=== PATIENT | male | born 1945 | race Caucasian/White ===

== ENCOUNTER → 2016-05-13 | Outpatient (CLI) | payer MEDICARE ==
[~2016-05-13] MED LIST: ACET-654 PO; ALBU20IN INH; ARTHRITIS PAIN REL OR; CENTTAB PO; COLA50CA3 PO; DOCU10CA PO; FERR325T3 PO; METF500T PO; MULTCAP11 PO; OMEP40CA2 PO; ROXI1TAB2 PO; SIME180C PO; SIME80TA PO; TYLE325T5 PO; TYLE650T30 PO; VIT250TA PO; ZOFR20TA PO; iron OR; megestrol OR; vitamin C OR
[2016-05-15 00:07] LABS: PSA % FREE 23.2 % (.); PSA FREE 1.09 ng/mL; PSA TOTAL 4.7 ng/mL (0.0-4.0)
== END ==
LOC: M LAB 10:47
PROVIDERS: ATTEND Urology
DX: N41.1 Chronic prostatitis (principal)

== ENCOUNTER → 2016-06-16 | Outpatient (REF) | payer MEDICARE | LOC: M LAB REF 12:43 | PROVIDERS: ATTEND Internal Medicine Medical Oncology | DX: C26.0 Malignant neoplasm of intestinal tract, part unspecified (principal) ==

== ENCOUNTER → 2016-07-14 | Outpatient (CLI) | payer MEDICARE ==
[~2016-07-14] MED LIST changes: +LIDOCAINE 2% MDV 20 ML VIAL As Ordered ONE; +LIDOCAINE W/EPINEPHRINE 1% 20ML VIAL As Ordered ONE; +SODIUM BICARBONATE 8.4% INJ 50MEQ 50 ML VIAL As Ordered ONE
--- NOTE | 2016-07-14 15:34 | REPKIM ---
CLINICAL HISTORY: Patient has a left chest [id number]. The referring service has requested to remove the chest [id number] because it is no longer needed. PROCEDURE PERFORMED: Chest Knowof-U-Vmit Removal INTERVENTIONALIST: Lynette Lovell MD CHILD NUTRITION ASSISTANT: AYO John IV MEDICATIONS: Local Lidocaine EBL: less than 5 mL CONSENT: The risks, benefits and alternatives to the procedure were explained to the patient and informed written consent was obtained. PROCEDURE/FINDINGS: The patient was brought to the interventional radiology suite and was positioned supine on the table. Time out procedure was performed. Fluoroscopy of the chest showed the catheter is intact with its tip in a satisfactory course and position. The left upper chest was prepped and draped in the usual sterile fashion. Local anesthesia was administered to the overlying skin and surrounding deep tissue around the existing port. Then a skin incision was made. The port was bluntly dissected free from the surrounding soft tissues. Then the port and its associated catheter were removed in their entirety. The deep tissue was closed with interrupted 2-0 Vicryl suture. The skin incision closed with running subcutaneous 4-0 Vicryl suture and steristrips. The patient tolerated the procedure well with no immediate complications. This procedure was performed using fluoroscopy. Dr. Lovell was present. IMPRESSION: Successful chest caupjn-t-ldms removal as discussed above. cc: Beulah Roa MD [facility] [place] DIVISIONRaine
== END | disposition home or self-care (01) ==
LOC: M IRPRO 12:21
PROVIDERS: ATTEND Internal Medicine Medical Oncology
DX: Z45.2 Encounter for adjustment and management of vascular access device (principal); C18.9 Malignant neoplasm of colon, unspecified

== ENCOUNTER → 2016-08-27 | Outpatient (REF) | payer MEDICARE ==
[~2016-08-27] MED LIST changes: -LIDOCAINE 2% MDV 20 ML VIAL As Ordered ONE; -LIDOCAINE W/EPINEPHRINE 1% 20ML VIAL As Ordered ONE; -SODIUM BICARBONATE 8.4% INJ 50MEQ 50 ML VIAL As Ordered ONE
== END ==
LOC: M SFHCPLAZ 16:42
PROVIDERS: ATTEND Family Medicine
DX: E03.9 Hypothyroidism, unspecified (principal); R73.03 Prediabetes; E55.9 Vitamin D deficiency, unspecified; G62.0 Drug-induced polyneuropathy; Z53.8 Procedure and treatment not carried out for other reasons

== ENCOUNTER → 2016-08-29 | Outpatient (CLI) | payer MEDICARE ==
[2016-08-29 10:37] LABS: ANION GAP 4 MEQ/L (8-16); BLOOD UREA NITROGEN 18 MG/DL (7-18); CALCIUM LEVEL 9.3 MG/DL (8.8-10.2); CARBON DIOXIDE LEVEL 32 MEQ/L (21-32); CHLORIDE LEVEL 104 MEQ/L (98-107); CHOLESTEROL LEVEL 98 MG/DL (<200); CREATININE FOR GFR 1.12 MG/DL (0.70-1.30); FREE T4 1.32 NG/DL (0.76-1.46); GLOMERULAR FILTRATION RATE > 60.0 (>42); GLUCOSE, FASTING 99 MG/DL (83-110); POTASSIUM SERUM 4.7 MEQ/L (3.5-5.1); SODIUM LEVEL 140 MEQ/L (136-145); TRIGLYCERIDES LEVEL 40 MG/DL (<150)
[2016-08-29 12:51] LABS: VITAMIN B12 LEVEL 559 PG/ML (247-911)
== END ==
LOC: M LAB 09:14
PROVIDERS: ATTEND Family Medicine
DX: R73.03 Prediabetes (principal); G62.0 Drug-induced polyneuropathy; E55.9 Vitamin D deficiency, unspecified; E03.9 Hypothyroidism, unspecified; Z87.891 Personal history of nicotine dependence

== ENCOUNTER → 2016-09-03 | Outpatient (CLI) | payer MEDICARE ==
--- NOTE | 2016-09-03 12:36 | REP ---
ULTRASOUND ABDOMINAL AORTA: Real-time sonographic evaluation ultrasound evaluation of the abdominal aorta performed. There is no sonographic evidence of abdominal aortic aneurysm. Proximally, at the level of the diaphragm is a maximum AP diameter of the abdominal aorta is 2.8 cm, at the level of the renal arteries, 2.5 cm, mid aspect 2.2 cm and distally just above the bifurcation 2.3 cm. The common iliac arteries are normal in caliber, right measuring 1.1 cm AP and left 1.0 cm. Atherosclerotic plaquing is noted. IMPRESSION: No sonographic evidence of abdominal aortic aneurysm. Signed by Ferdy Sapp MD 09/03/2016 07:47 P
== END ==
LOC: M RAD 09:11
PROVIDERS: ATTEND Family Medicine
DX: Z87.891 Personal history of nicotine dependence (principal)

== ENCOUNTER → 2016-11-19 | Outpatient (CLI) | payer MEDICARE ==
[~2016-11-19] MED LIST changes: -ACET-654 PO; +ACET1TAB17 PO; +METF500T13 PO
[2016-11-20 14:15] LABS: PSA % FREE 25.3 % (.); PSA FREE 1.39 ng/mL; PSA TOTAL 5.5 ng/mL (0.0-4.0)
== END ==
LOC: M LAB 10:01
PROVIDERS: ATTEND Urology
DX: N41.1 Chronic prostatitis (principal)

== ENCOUNTER → 2016-12-17 | Outpatient (REF) | payer MEDICARE | LOC: M LAB REF 12:36 | PROVIDERS: ATTEND Internal Medicine Medical Oncology | DX: C18.9 Malignant neoplasm of colon, unspecified (principal) ==

== ENCOUNTER → 2017-06-04 | Outpatient (CLI) | payer MEDICARE ==
[2017-06-06 00:06] LABS: PSA % FREE 26.9 % (.); PSA FREE 1.21 ng/mL; PSA TOTAL 4.5 ng/mL (0.0-4.0)
== END ==
LOC: M LAB 10:28
DX: R97.0 Elevated carcinoembryonic antigen [CEA] (principal)
CPT/HCPCS: 84154

== ENCOUNTER → 2017-07-06 | Outpatient (REF) | payer MEDICARE ==
[2017-07-07 09:14] LABS: CARCINOEMBRYONIC ANTIGEN 0.9 NG/ML (<2.5)
== END ==
LOC: M LAB REF 12:50
DX: C18.9 Malignant neoplasm of colon, unspecified (principal)
CPT/HCPCS: 82378

== ENCOUNTER → 2017-08-24 | Outpatient (CLI) | payer MEDICARE ==
[2017-08-24 12:23] LABS: ANION GAP 8 MEQ/L (8-16); BLOOD UREA NITROGEN 13 MG/DL (7-18); CALCIUM LEVEL 8.8 MG/DL (8.8-10.2); CARBON DIOXIDE LEVEL 26 MEQ/L (21-32); CHLORIDE LEVEL 108 MEQ/L (98-107); CREATININE FOR GFR 1.01 MG/DL (0.70-1.30); FREE T4 1.41 NG/DL (0.76-1.46); GLOMERULAR FILTRATION RATE > 60.0 (>42); GLUCOSE, FASTING 109 MG/DL (70-100); POTASSIUM SERUM 4.4 MEQ/L (3.5-5.1); SODIUM LEVEL 142 MEQ/L (136-145)
[2017-08-24 14:13] LABS: ESTIMATED AVERAGE GLUCOSE 134 MG/DL (60-110); HEMOGLOBIN A1c 6.3 %
== END ==
LOC: M LAB 11:00
DX: E03.9 Hypothyroidism, unspecified (principal); R73.03 Prediabetes
CPT/HCPCS: 84443

== ENCOUNTER → 2018-02-24 | Outpatient (CLI) | payer MEDICARE ==
[~2018-02-24] MED LIST changes: -ACET1TAB17 PO; -ALBU20IN INH; -ARTHRITIS PAIN REL OR; -CENTTAB PO; -COLA50CA3 PO; -DOCU10CA PO; -FERR325T3 PO; +GASTROGRAFIN SOLUTION 30ML (Q9963) As Ordered; +ISOVUE-370 76% 100ML VIAL (Q9967) As Ordered; -METF500T PO; -METF500T13 PO; -MULTCAP11 PO; -OMEP40CA2 PO; -ROXI1TAB2 PO; -SIME180C PO; -SIME80TA PO; -TYLE325T5 PO; -TYLE650T30 PO; -VIT250TA PO; -ZOFR20TA PO; -iron OR; -megestrol OR; -vitamin C OR
== END ==
LOC: M RAD 08:53
DX: C18.9 Malignant neoplasm of colon, unspecified (principal); N40.0 Benign prostatic hyperplasia without lower urinary tract symptoms
CPT/HCPCS: Q9963

== ENCOUNTER → 2018-03-30 | Outpatient (CLI) | payer MEDICARE ==
[~2018-03-30] MED LIST changes: +ACET1TAB55 PO; +ALBU20IN INH; +ARTHRITIS PAIN REL OR; +ASPI1TAB PO; +CENTTAB PO; +COLA50CA3 PO; +DOCU10CA PO; +FERR325T3 PO; +GABA600T4 PO; -GASTROGRAFIN SOLUTION 30ML (Q9963) As Ordered; -ISOVUE-370 76% 100ML VIAL (Q9967) As Ordered; +LEVO75TA4 PO; +METF500T PO; +METF500T13 PO; +MULTCAP11 PO; +OMEP40CA2 PO; +OXYB15TA PO; +ROXI1TAB2 PO; +SIME180C PO; +SIME80TA PO; +TERA10CA3 PO; +TYLE325T5 PO; +TYLE650T30 PO; +VIT250TA PO; +ZOFR4TAB16 PO; +iron OR; +megestrol OR; +vitamin C OR
--- NOTE | 2018-04-02 11:29 | REP ---
PET/CT: History: Staging colon carcinoma. History of stage 3 colon carcinoma 2013 with dilated anastomotic site in the sigmoid colon. Rule out recurrence. Comparisons: Comparison CT chest, abdomen, and pelvis February 24, 2018. Comparison PET/CT study May 26, 2013. TECHNIQUE: 1 hour 13 minutes following the intravenous injection of a 7.6 mCi dose of F-18 FDG, three-dimensional PET scintigraphy is acquired from the skull base to the proximal thighs. Triplanar noncontrast CT scanning is acquired through the same anatomic range for attenuation correction, and image registration with scan parameters optimized to minimize radiation exposure to the patient. PET scintigraphy and CT datasets were fused and displayed on a workstation with multiplanar and projection display capability. PET/CT Findings: The neck soft tissues are unremarkable. There is no abnormal hypermetabolic uptake in the thorax. No abnormal lung nodule is seen. No abnormal hypermetabolic uptake is seen within the liver. There is marked atrophy and absence of function of the left kidney as before. There is a large photopenic area in the descending colon segment corresponding to the large stool ball or fecaloma seen here on recent as well as the current CT study. At the distal end of this, there is normal low level bowel wall mucosal uptake with maximum standard uptake value. Distal to this, there is slightly more avid mucosal uptake. No colonic mass lesion is seen. No hypermetabolic regional adenopathy is observed. There is some diverticulosis distal to the dilated descending colonic segment. PET scintigraphy is otherwise unremarkable. Impression: There is no abnormal colonic uptake at the distal end of the dilated descending colon segment occupied by a very large stool ball. No evidence of intra-abdominal adenopathy or hepatic metastasis. Negative PET scintigraphy. Electronically Signed by Mann Rajan MD 04/01/2018 04:27 P
== END ==
LOC: M PLARAD 09:29
PROVIDERS: ATTEND Internal Medicine Medical Oncology
DX: K59.39 Other megacolon (principal); Z85.038 Personal history of other malignant neoplasm of large intestine; Z90.49 Acquired absence of other specified parts of digestive tract
CPT/HCPCS: 78815; A9552

== ENCOUNTER → 2018-05-31 | Outpatient (CLI) | payer MEDICARE | LOC: M LAB 11:31 | PROVIDERS: ATTEND Nurse Practitioner Women's Health | DX: R97.21 Rising PSA following treatment for malignant neoplasm of prostate (principal) ==

== ENCOUNTER → 2018-07-12 | Outpatient (CLI) | payer MEDICARE ==
[~2018-07-12] MED LIST changes: -ASPI1TAB PO; +ASPI81TA26 PO
[2018-07-12 13:53] LABS: HEMOGLOBIN A1c 6.4 %
== END ==
LOC: M LAB 10:34
PROVIDERS: ATTEND Family Medicine
DX: E55.9 Vitamin D deficiency, unspecified (principal); Z87.898 Personal history of other specified conditions; Z79.82 Long term (current) use of aspirin

== ENCOUNTER → 2018-08-03 | Outpatient (CLI) | payer MEDICARE ==
[~2018-08-03] MED LIST changes: +FINA5TAB2 PO; +MULTCAP PO
[2018-08-03 10:15] LABS: HEMATOCRIT 39.7 % (42.0-52.0); HEMOGLOBIN 12.8 g/dl (13.5-17.5); MEAN CORPUSCULAR HEMOGLOBIN 27.8 pg (27.0-33.0); MEAN CORPUSCULAR HGB CONC 32.2 g/dl (32.0-36.5); MEAN CORPUSCULAR VOLUME 86.3 fl (80.0-96.0); PLATELET COUNT, AUTOMATED 142 10^3/uL (150-450); WHITE BLOOD COUNT 3.7 10^3/uL (4.0-10.0)
[2018-08-03 10:58] LABS: ALBUMIN 3.3 GM/DL (3.2-5.2); ALT/SGPT 20 U/L (12-78); BILIRUBIN,TOTAL 0.5 MG/DL (0.2-1.0); BLOOD UREA NITROGEN 19 MG/DL (7-18); CALCIUM LEVEL 8.2 MG/DL (8.8-10.2); CARBON DIOXIDE LEVEL 31 MEQ/L (21-32); CHLORIDE LEVEL 107 MEQ/L (98-107); CREATININE FOR GFR 1.12 MG/DL (0.70-1.30); GLOMERULAR FILTRATION RATE > 60.0 (>42); GLUCOSE, FASTING 98 MG/DL (70-100); POTASSIUM SERUM 4.3 MEQ/L (3.5-5.1); SODIUM LEVEL 141 MEQ/L (136-145); TOTAL PROTEIN 6.4 GM/DL (6.4-8.2)
== END ==
LOC: M LAB 09:49
PROVIDERS: ATTEND Internal Medicine Medical Oncology
DX: C18.7 Malignant neoplasm of sigmoid colon (principal)

== ENCOUNTER → 2018-09-08 | Outpatient (CLI) | payer MEDICARE ==
[2018-09-09 14:20] LABS: PSA FREE 0.8 ng/mL; PSA TOTAL 4.7 ng/mL (0.0-4.0)
== END ==
LOC: M LAB 09:32
PROVIDERS: ATTEND Nurse Practitioner Women's Health
DX: R97.20 Elevated prostate specific antigen [PSA] (principal)

== ENCOUNTER 2018-11-25 10:58 | Day surgery (SDC) | payer MEDICARE ==
[~2018-11-25] VITALS: Ht 167.6 cm; Wt 62.1 kg
[~2018-11-25 10:58] MED LIST changes: +JANU25TA PO; +NS 1,000 ML IV ONE
[2018-11-25] MEDS ORDERED: LIDOCAINE 2% INJ 100 MG/5 ML SDV (FOR ANES.) As Ordered ONE (13:18)
[2018-11-25] MEDS ORDERED: PROPOFOL 200 MG/20 ML VIAL As Ordered ONE ×2 (13:18→13:44)
--- NOTE | 2018-11-25 13:55 | ROOR ---
Patient Name: Noe Valdez Procedure Date: 11/25/2018 1:19 PM Date of : 1945 Age: 73 Room: [facility] Gender: Male Note Status: Finalized Procedure: Colonoscopy Indications: High risk colon cancer surveillance: Personal history of colon cancer Providers: Genaro Mariano Jr, MD Referring MD: Ernesto MURILLO MD Requesting Provider: Medicines: Propofol per Anesthesia Complications: No immediate complications. Procedure: Pre-Anesthesia Assessment: - Prior to the procedure, a History and Physical was performed, and patient medications and allergies were reviewed. The patient is competent. The risks and benefits of the procedure and the sedation options and risks were discussed with the patient. All questions were answered and informed consent was obtained. Patient identification and proposed procedure were verified by the physician and the nurse in the pre-procedure area and in the procedure room. Mental Status Examination: alert and oriented. Airway Examination: normal oropharyngeal airway and neck mobility. Respiratory Examination: clear to auscultation. CV Examination: normal. ASA Grade Assessment: II - A patient with mild systemic disease. After reviewing the risks and benefits, the patient was deemed in satisfactory condition to undergo the procedure. The anesthesia plan was to use moderate sedation / analgesia (conscious sedation). Immediately prior to administration of medications, the patient was re-assessed for adequacy to receive sedatives. The heart rate, respiratory rate, oxygen saturations, blood pressure, adequacy of pulmonary ventilation, and response to care were monitored throughout the procedure. The physical status of the patient was re-assessed after the procedure. The Colonoscope was introduced through the anus and advanced to the cecum, identified by appendiceal orifice and ileocecal valve. The colonoscopy was performed without difficulty. The patient tolerated the procedure well. The quality of the bowel preparation was adequate. Findings: The rectum, descending colon, ascending colon, cecum, appendiceal orifice and ileocecal valve appeared normal. A small polyp was found in the ascending colon. The polyp was removed with a hot snare. Resection and retrieval were complete. A medium polyp was found in the anastomosis. The polyp was removed with a hot snare. Resection and retrieval were complete. Impression: - The rectum, descending colon, ascending colon, cecum, appendiceal orifice and ileocecal valve are normal. - One small polyp in the ascending colon, removed with a hot snare. Resected and retrieved. - One medium polyp at the anastomosis, removed with a hot snare. Resected and retrieved. Recommendation: - Discharge patient to home (ambulatory). - Repeat colonoscopy in 5 years for surveillance. Genaro Mariano MD Genaro Mariano Jr, MD 11/25/2018 1:54:52 PM Electronically signed by Genaro Mariano Jr, MD Number of Addenda: 0 Note Initiated On: 11/25/2018 1:19 PM Estimated Blood Loss: Estimated blood loss: none.
[2018-11-25 14:20] VITALS: BP 133/64
== END 2018-11-25 14:50 | disposition home or self-care (01) ==
LOC: M OPP 10:58
PROVIDERS: ATTEND Surgery
DX: Z12.11 Encounter for screening for malignant neoplasm of colon (principal); Z85.038 Personal history of other malignant neoplasm of large intestine; D12.2 Benign neoplasm of ascending colon; E11.9 Type 2 diabetes mellitus without complications; Z79.82 Long term (current) use of aspirin; Z79.84 Long term (current) use of oral hypoglycemic drugs; Z79.899 Other long term (current) drug therapy

== ENCOUNTER → 2018-12-06 | Outpatient (CLI) | payer MEDICARE ==
[~2018-12-06] MED LIST changes: -NS 1,000 ML IV ONE; -OMEP40CA2 PO; +OMEP40CA97 PO; -OXYB15TA PO; +OXYB15TA14 PO
[2018-12-08 00:06] LABS: PSA TOTAL 3.5 ng/mL (0.0-4.0)
== END ==
LOC: M LAB 11:13
PROVIDERS: ATTEND Urology
DX: R97.20 Elevated prostate specific antigen [PSA] (principal)

== ENCOUNTER → 2019-02-24 | Outpatient (CLI) | payer MEDICARE ==
[~2019-02-24] MED LIST changes: +GASTROGRAFIN SOLUTION 30ML (Q9963) As Ordered ONE; +ISOVUE-370 76% 100ML VIAL (Q9967) As Ordered ONE; -OXYB15TA14 PO; +OXYB1TAB13 PO
--- NOTE | 2019-02-24 14:48 | REP ---
Clinical: Stage III colon cancer. Technique: Axial contrast enhanced images from the thoracic inlet to the upper abdomen with coronal and sagittal re-formations using 100 ml Isovue 370 intravenous contrast material. Comparison: 02/24/2018. Findings: Chronic bronchiectasis and fibrosis/scarring involving the left lower lobe remains essentially stable. The remainder of lung wing are well-aerated and clear. No consolidation. No nodule or mass lesion. No effusion. No pneumothorax. No axillary, hilar, or mediastinal adenopathy. Further evaluation of the mediastinum demonstrates relatively normal thoracic aorta, pulmonary vasculature and heart/pericardium. Atherosclerotic changes noted. Surrounding musculoskeletal structures are intact without focal osseous abnormality. Impression: Chronic bronchiectasis and fibrosis/scarring to the left lower lobe unchanged. No acute mediastinal or pleuroparenchymal process. No evidence for metastatic disease related to colon cancer. Electronically Signed by Lawrence Clark MD 02/24/2019 02:39 P
--- NOTE | 2019-02-24 14:52 | REP ---
Clinical: Stage III colon cancer. Technique: Axial contrast enhanced images from the lung bases to the pubic symphysis using oral (per protocol) and 100 ml Isovue 370 intravenous contrast material with coronal and sagittal re-formations. Comparison: 02/24/2018. Findings: Liver, spleen, pancreas, and bilateral adrenal glands are normal. Cholelithiasis noted without acute cholecystitis. Chronic atrophic appearance to the left kidney is unchanged and stable right renal cysts are again noted along with extrarenal pelvis. The enteric system is without obstruction or acute inflammatory process normal terminal ileum and appendix are identified in the right lower quadrant. Few sigmoid diverticula noted without acute diverticulitis. Pelvis demonstrates moderately enlarged prostate gland with mass effect on the base of the bladder. The bladder is otherwise unremarkable. No ascites. No free air. No adenopathy. Abdominal aorta without aneurysm or dissection. Musculoskeletal structures demonstrate age-related degenerative changes. Impression: 1. No evidence for malignancy or metastatic disease. 2. Cholelithiasis. 3. Stable appearance to the kidneys as described above. 4. Prostatomegaly. 5. No ascites. No free air. No adenopathy. No focal inflammatory stranding. Electronically Signed by Lawrence Clark MD 02/24/2019 02:43 P
== END ==
LOC: M RAD 12:38
PROVIDERS: ATTEND Internal Medicine Medical Oncology
DX: C18.9 Malignant neoplasm of colon, unspecified (principal)
CPT/HCPCS: 71260; 74177; Q9963; Q9967

== ENCOUNTER 2019-03-16 12:38 | Emergency (ER) | payer MEDICARE ==
[~2019-03-16] VITALS: Ht 167.6 cm; Wt 61.4 kg
[~2019-03-16 12:38] MED LIST changes: -GASTROGRAFIN SOLUTION 30ML (Q9963) As Ordered ONE; -ISOVUE-370 76% 100ML VIAL (Q9967) As Ordered ONE
--- NOTE | 2019-03-16 13:12 | REP ---
Clinical: Trauma. Technique: AP, lateral, bilateral oblique views of the right ankle. Findings: Lateral swelling consist with inversion injury. No acute fracture dislocation. Ankle mortise intact. Peripheral vascular disease noted. Impression: Swelling. No acute fracture or dislocation. Electronically Signed by Lawrence Clark MD 03/16/2019 01:03 P
[2019-03-16 14:12] VITALS: BP 149/67
== END 2019-03-16 14:26 | disposition home or self-care (01) ==
LOC: M ED 12:38
DX: S93.401A Sprain of unspecified ligament of right ankle, initial encounter (principal); X50.9XXA Other and unspecified overexertion or strenuous movements or postures, initial encounter; Y92.018 Other place in single-family (private) house as the place of occurrence of the external cause; Z79.899 Other long term (current) drug therapy; Z79.82 Long term (current) use of aspirin; Z87.891 Personal history of nicotine dependence

== ENCOUNTER → 2019-04-19 | Outpatient (CLI) | payer MEDICARE ==
[~2019-04-19] MED LIST changes: +OXYB15TA14 PO; -OXYB1TAB13 PO
[2019-04-19 11:19] LABS: FREE T4 1.61 NG/DL (0.76-1.46); HEMOGLOBIN A1c 6.2 %; THYROID STIMULATING HORMONE 0.928 uIU/ML (0.358-3.740)
[2019-04-19 11:23] LABS: TOTAL 25(OH) VITAMIN D 49.1 NG/ML (30.0-100.0)
[2019-04-19 12:13] LABS: MALB URINE SIEMENS 11.9 MG/L; MAU/CREAT RATIO 8.6 MCG/MG (0.0-30.0)
== END ==
LOC: M LAB 09:51
PROVIDERS: ATTEND Physician Assistant
DX: E11.9 Type 2 diabetes mellitus without complications (principal); E55.9 Vitamin D deficiency, unspecified

== ENCOUNTER → 2019-05-13 | Outpatient (REF) | payer MEDICARE ==
[2019-05-13 16:28] LABS: INFLUENZA A AMPLIFICATION NEGATIVE (NEGATIVE); INFLUENZA B AMPLIFICATION NEGATIVE (NEGATIVE)
== END ==
LOC: M LAB REF 15:39
PROVIDERS: ATTEND Physician Assistant Medical
DX: J11.1 Influenza due to unidentified influenza virus with other respiratory manifestations (principal)

== ENCOUNTER → 2019-08-19 | Outpatient (CLI) | payer MEDICARE ==
[2019-08-23 16:10] LABS: PSA % FREE 16.2 % (.); PSA FREE 0.68 ng/mL; PSA TOTAL 4.2 ng/mL (0.0-4.0)
== END ==
LOC: M LAB 10:04
PROVIDERS: ATTEND Nurse Practitioner Women's Health
DX: R97.20 Elevated prostate specific antigen [PSA] (principal)

== ENCOUNTER → 2019-08-25 | Outpatient (CLI) | payer MEDICARE ==
[2019-08-25 11:57] LABS: BASO % 0.3 % (0.0-1.0); EOS # 0.1 10^3/uL (0.0-0.5); EOS % 2.1 % (0.0-3.0); HEMATOCRIT 39.7 % (42.0-52.0); HEMOGLOBIN 12.8 g/dl (13.5-17.5); LYMPH # 0.7 10^3/uL (1.5-5.0); MEAN CORPUSCULAR HEMOGLOBIN 27.1 pg (27.0-33.0); MEAN CORPUSCULAR HGB CONC 32.2 g/dl (32.0-36.5); MEAN CORPUSCULAR VOLUME 83.9 fl (80.0-96.0); MONO # 0.3 10^3/uL (0.0-0.8); MONO % 7.7 % (0.0-5.0); NEUTROPHILS # 2.7 10^3/uL (1.5-8.5); NEUTROPHILS % 70.6 % (36.0-66.0); PLATELET COUNT, AUTOMATED 139 10^3/uL (150-450); RED BLOOD COUNT 4.73 10^6/uL (4.30-6.10); WHITE BLOOD COUNT 3.8 10^3/uL (4.0-10.0)
[2019-08-25 12:25] LABS: ALBUMIN 3.4 GM/DL (3.2-5.2); ALT/SGPT 29 U/L (12-78); BILIRUBIN,TOTAL 0.8 MG/DL (0.2-1.0); BLOOD UREA NITROGEN 15 MG/DL (7-18); CALCIUM LEVEL 9.1 MG/DL (8.8-10.2); CARBON DIOXIDE LEVEL 32 MEQ/L (21-32); CHLORIDE LEVEL 104 MEQ/L (98-107); CREATININE FOR GFR 1.19 MG/DL (0.70-1.30); FERRITIN 27 NG/ML (26-388); GLOMERULAR FILTRATION RATE > 60.0 (>42); GLUCOSE, FASTING 108 MG/DL (70-100); IRON (FE) 85 UG/DL (65-175); PERCENT SATURATION 27.2 % (19.7-50.0); POTASSIUM SERUM 4.4 MEQ/L (3.5-5.1); SODIUM LEVEL 140 MEQ/L (136-145); TOTAL IRON BINDING CAPACITY 313 UG/DL (250-450); TOTAL PROTEIN 6.6 GM/DL (6.4-8.2)
[2019-08-25 12:32] LABS: VITAMIN B12 LEVEL 582 PG/ML (247-911)
== END ==
LOC: M LAB 11:05
PROVIDERS: ATTEND Internal Medicine Hematology & Oncology
DX: D12.6 Benign neoplasm of colon, unspecified (principal)

== ENCOUNTER → 2019-10-03 | Outpatient (CLI) | payer MEDICARE ==
[2019-10-03 12:27] LABS: BLOOD UREA NITROGEN 16 MG/DL (7-18); CALCIUM LEVEL 8.9 MG/DL (8.8-10.2); CARBON DIOXIDE LEVEL 30 MEQ/L (21-32); CHLORIDE LEVEL 102 MEQ/L (98-107); CREATININE FOR GFR 1.16 MG/DL (0.70-1.30); FREE T4 1.38 NG/DL (0.76-1.46); GLOMERULAR FILTRATION RATE > 60.0 (>42); GLUCOSE, FASTING 81 MG/DL (70-100); POTASSIUM SERUM 4.2 MEQ/L (3.5-5.1); SODIUM LEVEL 139 MEQ/L (136-145)
[2019-10-03 16:14] LABS: HEMOGLOBIN A1c 6.2 %
== END ==
LOC: M LAB 10:10
PROVIDERS: ATTEND Physician Assistant
DX: E03.9 Hypothyroidism, unspecified (principal); E11.9 Type 2 diabetes mellitus without complications

== ENCOUNTER → 2019-11-15 | Outpatient (CLI) | payer MEDICARE ==
[2019-11-15 13:33] LABS: FREE T4 1.53 NG/DL (0.76-1.46); THYROID STIMULATING HORMONE 1.19 uIU/ML (0.358-3.740)
== END ==
LOC: M LAB 11:59
PROVIDERS: ATTEND Physician Assistant
DX: E03.9 Hypothyroidism, unspecified (principal)
CPT/HCPCS: 36415; 84439; 84443; G0463

== ENCOUNTER → 2020-01-24 | Outpatient (CLI) | payer MEDICARE | LOC: M LAB 13:03 | PROVIDERS: ATTEND Podiatrist Foot & Ankle Surgery | DX: M10.079 Idiopathic gout, unspecified ankle and foot (principal) ==

== ENCOUNTER 2020-02-16 11:55 | Inpatient (IN) | payer MEDICARE ==
[~2020-02-16] VITALS: Ht 167.6 cm; Wt 58.1 kg
[2020-02-16] MEDS ORDERED: COLC0.6T47 (12:08)
[2020-02-16] MEDS ORDERED: ISOVUE-370 76% 100ML VIAL As Ordered ONE (12:50)
[2020-02-16 12:55] LABS: BASO % 0.2 % (0.0-1.0); EOS # 0.1 10^3/uL (0.0-0.5); EOS % 0.7 % (0.0-3.0); HEMATOCRIT 46.2 % (42.0-52.0); HEMOGLOBIN 14.3 g/dl (13.5-17.5); LYMPH # 0.7 10^3/uL (1.5-5.0); LYMPH % 7.5 % (24.0-44.0); MEAN CORPUSCULAR HEMOGLOBIN 26.3 pg (27.0-33.0); MEAN CORPUSCULAR VOLUME 85.1 fl (80.0-96.0); MONO # 0.6 10^3/uL (0.0-0.8); MONO % 5.7 % (0.0-5.0); NEUTROPHILS # 8.5 10^3/uL (1.5-8.5); NEUTROPHILS % 85.6 % (36.0-66.0); PLATELET COUNT, AUTOMATED 164 10^3/uL (150-450); RED BLOOD COUNT 5.43 10^6/uL (4.30-6.10); WHITE BLOOD COUNT 9.9 10^3/uL (4.0-10.0)
[2020-02-16] MEDS ORDERED: NS 500 ML IV ONE (13:00)
[2020-02-16] MEDS ORDERED: cefTRIAXone SOD 1 GM in D5W MINI-BAG PLUS 50 ML IV ONE (13:00)
--- NOTE | 2020-02-16 13:11 | REP ---
INDICATION: left lower lobe rales COMPARISON: 08/16/2013 TECHNIQUE: PA and lateral. FINDINGS: The mediastinum and cardiac silhouette are normal. The lung wing are clear and without acute consolidation, effusion, or pneumothorax. The skeletal structures are intact and normal. IMPRESSION: No acute cardiopulmonary process. <Electronically signed by Lawrence Clark > 02/16/20 [id number]
--- NOTE | 2020-02-16 13:26 | REP ---
INDICATION: LUQ to LLQ pain, hx colon cancer. COMPARISON: 02/24/2019, 02/24/2018 TECHNIQUE: Axial contrast-enhanced images from the lung bases to the pubic symphysis using 100 cc Isovue 370 intravenous contrast material. Coronal and sagittal reformations obtained. This CT examination was performed using the following dose reduction techniques: Automated exposure control, adjustment of mA and/or kv according to the patient's size, and the use of iterative reconstruction technique. FINDINGS: There is an extremely large focal area of fecal retention at the level of the previous sigmoid resection/anastomosis which measures roughly 10.6 cm maximal diameter and greater than 15 cm in craniocaudal length consistent with focal fecal impaction/fecalith possibly caused by element of mechanical obstruction (series 201; images 58-110) subtle surrounding pericolonic stranding and reactive lymph nodes raises the possibility of an associated focal colitis. The remainder of the small and large bowel is relatively unremarkable and without further obstruction or acute inflammatory process. Scattered diverticula noted without acute diverticulitis. Liver, spleen, pancreas, bilateral adrenal glands and right kidney are relatively normal/stable. 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 Cholelithiasis without acute cholecystitis by CT. Pelvis demonstrates partially collapsed bladder and prostatomegaly. No ascites. No free air. No retroperitoneal adenopathy. Abdominal aorta without aneurysm or dissection. Musculoskeletal structures are intact. The lung bases demonstrate subtle reticulonodular interstitial infiltrate and mild bronchiectasis in the left lower lobe similar to prior examinations. IMPRESSION: 1. Large focal area of fecal retention at the site of prior resection and anastomosis in the left lower abdomen as described above. Findings may be related to mechanical obstruction at the site of anastomosis. Subtle associated stranding and reactive lymph nodes are identified raising the possibility of an associated focal colitis. Differential diagnosis cannot exclude malignant recurrence. 2. Nonacute findings as described above including 3.4 cm right renal cyst, cholelithiasis, and prostatomegaly. 3. Mild reticulonodular pattern and bronchiectasis in the left lower lobe may reflect chronic changes and appears similar to 2018. Correlation is recommended to exclude superimposed acute early pneumonia. <Electronically signed by Lawrence Clark > 02/16/20 [id number]
[2020-02-16 14:15] LABS: ALBUMIN 3.4 GM/DL (3.2-5.2); BILIRUBIN,DIRECT 0.4 MG/DL (0.0-0.2); BILIRUBIN,TOTAL 1.2 MG/DL (0.2-1.0); TOTAL PROTEIN 7.5 GM/DL (6.4-8.2)
--- NOTE | 2020-02-16 15:22 | REP ---
INDICATION: cocnstipation, small bm eval stool remaining COMPARISON: None. TECHNIQUE: Supine view of the abdomen and pelvis. FINDINGS: A significant amount of fecal material is noted in the left mid abdomen consistent with the recent CT findings. The bowel gas pattern is otherwise nonspecific and without evidence for small bowel obstruction. No free air identified. IMPRESSION: Significant amount of retained fecal material in the left mid abdomen consistent with recent CT findings including large area of fecal impaction/fecalith at the site of prior sigmoid anastomosis. <Electronically signed by Lawrence Clark > 02/16/20 [id number]
[2020-02-16] MEDS ORDERED: ACETAMINOPHEN TAB 650MG DOSE (2X325MG) PO PRN (17:15)
[2020-02-16] MEDS ORDERED: MAALOX 30 ML SUSP *UDC PO PRN (17:15)
[2020-02-16] MEDS ORDERED: GLUCAGON INJ 1MG VIAL SC PRN (17:15)
[2020-02-16] MEDS ORDERED: DEXTROSE 50% 50 ML SYRINGE IV PRN (17:15)
[2020-02-16] MEDS ORDERED: MOM 30ML SUSPENSION UDC PO PRN (17:15)
[2020-02-16] MEDS ORDERED: GLUCOSE 4GM CHEW TABLET PO PRN (17:15)
--- NOTE | 2020-02-16 17:30 | HPEPDOC ---
[facility] Medical History & Physical Date of Admission Feb 16, 2020 Date of Service: Feb 16, 2020 History and Physical CHIEF COMPLAINT: Abdominal pain HISTORY OF PRESENT ILLNESS: 75 her old male with a history of colon cancer, status post L hemicolectomy and chemo (completed 01/2016), COPD, BPH, diabetes type 2, presented to ER with a 2 day history of worsening abdominal pain. He reports that the pain is worse on the left lower quadrant. It is nonradiating. It is not associated with food. However, he does report not having had a bowel movement approximately 2 days ago. Further, he reports having very dark tea colored urine for the past 2 days however he does not have any dysuria or flank pain. He denies any history of recent blood per rectum, melena or hematemesis. Denies vomiting, nausea or diarrhea. He has no chest pain, chest breath, palpitations. He does also does not have any fevers. UA suggestive of UTI, patient was given dose of ceftriaxone in ER. Repeat CT scan of the abdomen in the ER showing a large focal area of fecal retention at site of prio anastomosis and resection in the left lower abdomen, measuring 10.6 cm in diam x 15 cm in caudal length. Dr. Crystal was called from ER, recommended soap bubble enema, which resulted in a small amount of stool expressed whoever the bulk of fecal impaction did not exit. Vitals reviewed, T 97.4. HR 85. BP 146/65. SpO2 99% on RA. Labs reviewed. WBC 9.9. Hgb 14.3. Hct 46.2. T bili 1.2. D bili 0.4. ALP 179. UA + UTI. PAST MEDICAL HISTORY: 1. Colon cancer s/p resection and checmo 2015 2. COPD/emphysema 3. BPH 4. DM2 PAST SURGICAL HISTORY: 1. L hemicolectomy for colon ca 2. R eye cataract SOCIAL HISTORY: , lives alone, independent Quit smoking 20 years ago denies etoh use denies illicit drug use. FAMILY HISTORY: Mother - Alzheimer's Father - lung and laryngeal ca Brother - colon ca Daughter - asthma ALLERGIES: Please see below. REVIEW OF SYSTEMS: CONSTITUTIONAL: patient denies fevers, chills HEENT: patient denies blurred vision, loss of vision, headache,. CARDIOVASCULAR: patient denies chest pain, palpitations. RESPIRATORY: patient denies shortness of breath, cough, hemoptysis. GASTROINTESTINAL: Constipated. Reports left lower quadrant abdominal pain. Denies vomiting. No melena. No bleeding, no hematemesis GENITOURINARY: patient denies dysuria, discharge. SKIN: patient denies rashes. MUSCULOSKELETAL: patient denies joint pain, neck pain. NEUROLOGICAL: patient denies focal weakness, numbness, seizures. PSYCHIATRIC: patient denies SI/HI. ENDOCRINE: patient denies polyuria, heat intolerance, cold intolerance. HEMATOLOGIC/LYMPHATIC: patient denies easy bruising. HOME MEDICATIONS: Please see below. PHYSICAL EXAMINATION: VITAL SIGNS: please see below General: NAD, comfortable HEENT: PERRLA, EOMI, sclerae clear Neck: supple, normal ROM, no JVD Respiratory: lungs CTAB, no wheeze, no rales, no crackles CVS: RRR, normal S1, S2, no murmurs Abdo: Distended, palpable mass in the left lower quadrant. Painful to palpation in the left lower quadrant. No guarding Extremities: no edema, pulses 2+ MSK: no joint deformities, normal ROM Neuro: no focal neuro deficits, moving all 4 extremities, CN2-12 intact. Strength 5/5 in all 4 extremities. No nystagmus. Psych: calm, cooperative, AAO x 3 LABORATORY DATA: See below. IMAGING: CT abdomen (02/16/20): IMPRESSION: 1. Large focal area of fecal retention at the site of prior resection and anastomosis in the left lower abdomen as described above. Findings may be related to mechanical obstruction at the site of anastomosis. Subtle associated stranding and reacti ve lymph nodes are identified raising the possibility of an associated focal colitis. Differential diagnosis cannot exclude malignant recurrence. 2. Nonacute findings as described above including 3.4 cm right renal cyst, cholelithiasis, and prostatomegaly. 3. Mild reticulonodular pattern and bronchiectasis in the left lower lobe may reflect chronic changes and appears similar to 2018. Correlation is recommended to exclude superimposed acute early pneumonia. CXR (02/16/20): FINDINGS: The mediastinum and cardiac silhouette are normal. The lung wing are clear and without acute consolidation, effusion, or pneumothorax. The skeletal structures are intact and normal. IMPRESSION: No acute cardiopulmonary process. Abdo xray (11/26/20): IMPRESSION: Significant amount of retained fecal material in the left mid abdomen consistent with recent CT findings including large area of fecal impaction/fecalith at the site of prior sigmoid anastomosis. MICROBIOLOGY: Please see below. ASSESSMENT: 75 her old male with a history of colon cancer, status post chemotherapy and resection in 2013, COPD, diabetes type 2, presented to ER with a 2 day history of worsening abdominal pain. Admitted for management of fecal impaction as well as UTI. PLAN: # Fecal impaction: very large section of impaction 10 cm in diam 15 cm in length. D/w Dr. Crystal, recs soap sudz enemas daily. Serial abdo exams. Trend CBC. Monitor for fevers. Will consult surgery if no BM in AM. # UTI: UA+. Urine culture pending. S/p ceftriaxone in ER. C/w ceftriaxone 2g q24h IV. Tylenol prn for fevers. # DM2 with neuropathy: ISS. FSBS AC and HS. Hypoglycemic precautions. Check a1c. gabapentin. # Questionable PNA/CAP on CT: patient has no cough, no fever, no WBC. Will monitor clinically # COPD: resume home meds # Hx of colon ca: s/p chemo and resection, anastomosis at sigmoid. CT findings showing reactive LNs at site of impaction which could signify colitis vs recurrence. Last colonoscopy 11/[address] Mariano, grossly normal (1 small adenomatous/tubular adenoma, 1 med polyp (inflammatory) removed). Was meant to return for scope in 5 years). Follows with oncology at [facility]. #hypothyroid:: c/w levothyroxine 75 mcg daily #BPH: last PSA 4.7. Followed by Dr. Anderson every 6 months. Oxybutinin. Flomax. Terazosin. DVT ppx: lovenox. SCDs. TEDs Dispo: admitted for obs. Pending successful BM expect patient to return home. Code stats: full code. Vital Signs Vital Signs Date Time Temp Pulse Resp B/P (MAP) Pulse Ox O2 Delivery O2 Flow Rate FiO2 02/16/20 15:31 96.9 70 20 130/78 (95) 98 Room Air Laboratory Data Labs 24H Laboratory Tests 2 02/16/20 12:15: Urine Color YONATHAN, Urine Appearance TURBIDH, Urine pH 5.0, Urine Specific [place] 1.018, Urine Protein 2+H, Urine Glucose (UA) NEGATIVE, Urine Ketones 1+H, Urine Blood 3+H, Urine Nitrite NEGATIVE, Urine Bilirubin NEGATIVE, Urine Urobilinogen 0.2, Urine Leukocyte Esterase 2+H, Urine WBC (Auto) TNTCH, Urine RBC (Auto) TNTCH, Urine Hyaline Casts (Auto) 0, Urine Bacteria (Auto) NEGATIVE, Urine Squamous Epithelial Cells 0, Urine Mucus (Auto) SMALL, Urine Sperm (Auto) 02/16/20 12:29: Immature Granulocyte % (Auto) 0.3, Neutrophils (%) (Auto) 85.6H, Lymphocytes (%) (Auto) 7.5L, Monocytes (%) (Auto) 5.7H, Eosinophils (%) (Auto) 0.7, Basophils (%) (Auto) 0.2, Neutrophils # (Auto) 8.5, Lymphocytes # (Auto) 0.7L, Monocytes # (Auto) 0.6, Eosinophils # (Auto) 0.1, Basophils # (Auto) 0.0, Nucleated Red Blood Cells % (auto) 0.0, Total Bilirubin 1.2H, Direct Bilirubin 0.4H, Aspartate Amino Transf (AST/SGOT) 23, Alanine Aminotransferase (ALT/SGPT) 22, Alkaline Phosphatase 179H, ZC-Nmf-W-Type Natriuretic Peptide 182, Total Protein 7.5, Albumin 3.4, Albumin/Globulin Ratio 0.8, Lipase 34L 02/16/20 12:42: POC Glucose (Misc Panel) 149H, POC Sodium (Misc Panel) 137, POC Potassium (Misc Panel) 4.0, POC Chloride (Misc Panel) 98, POC Total CO2 (Misc Panel) 29.0H, POC Blood Urea Nitrogen (Misc Panel 18, POC Ionized Calcium (Misc Panel) 4.5, POC Creatinine (Misc Panel) 1.3, POC Hematocrit (Misc Panel) 46.0 02/16/20 16:08: Coronavirus (COVID-19)(PCR) NEGATIVE CBC/BMP Laboratory Tests 02/16/20 12:29 Microbiology Microbiology 02/16/20 Urine Culture, Received Pending Home Medications Scheduled Aspirin (Aspirin EC) 81 Mg Tab, 81 MG PO DAILY Finasteride (Finasteride) 5 Mg Tablet, 5 MG PO DAILY Gabapentin (Gabapentin) 600 Mg Tab, 600 MG PO TID Levothyroxine Sodium (Levothyroxine Sodium) 75 Mcg Tab, 75 MCG PO DAILY Multivitamin (Multivitamins) 1 Each Capsule, 1 CAP PO DAILY Oxybutynin Chloride (Oxybutynin Chloride ER) 15 Mg Tab, 15 MG PO DAILY Sitagliptin Phosphate (Januvia) 25 Mg Tablet, 25 MG PO DAILY Terazosin Hcl (Terazosin HCl) 10 Mg Cap, 10 MG PO DAILY Allergies Coded Allergies: No Known Allergies (Unverified , 04/09/13) A-FIB/CHADSVASC A-FIB History Current/History of A-Fib/PAF?: No Current PO Anticoag Therapy: No MARLIN GAMING MD Feb 16, 2020 17:30
[2020-02-16 18:45] VITALS: BP 141/75
[2020-02-16] MEDS: HumaLOG INSULIN (NovoLOG) PER UNIT SC SCH ×2 (19:51→20:27)
[2020-02-16] MEDS: DOCUSATE SODIUM 100MG CAPSULE PO SCH (20:27)
[2020-02-16] MEDS: GABAPENTIN 300 MG CAP PO SCH (20:27)
[2020-02-16 22:00] VITALS: BP 142/60
[2020-02-17 06:00] VITALS: BP 118/61
[2020-02-17] MEDS: LEVOTHYROXINE 75MCG TABLET (0.075MG) PO SCH (06:06)
[2020-02-17] MEDS: HumaLOG INSULIN (NovoLOG) PER UNIT SC SCH ×4 (07:30→21:00)
[2020-02-17 07:41] LABS: BASO % 0.1 % (0.0-1.0); EOS # 0.1 10^3/uL (0.0-0.5); EOS % 0.8 % (0.0-3.0); HEMATOCRIT 41.5 % (42.0-52.0); HEMOGLOBIN 13.2 g/dl (13.5-17.5); MEAN CORPUSCULAR HEMOGLOBIN 26.9 pg (27.0-33.0); MEAN CORPUSCULAR HGB CONC 31.8 g/dl (32.0-36.5); MEAN CORPUSCULAR VOLUME 84.7 fl (80.0-96.0); MONO # 0.6 10^3/uL (0.0-0.8); MONO % 8.6 % (0.0-5.0); NEUTROPHILS # 5.6 10^3/uL (1.5-8.5); NEUTROPHILS % 76.1 % (36.0-66.0); PLATELET COUNT, AUTOMATED 161 10^3/uL (150-450); WHITE BLOOD COUNT 7.4 10^3/uL (4.0-10.0)
--- NOTE | 2020-02-17 08:23 | REP ---
INDICATION: fever COMPARISON: 02/16/2020 TECHNIQUE: Portable AP view of the chest FINDINGS: The mediastinum and cardiac silhouette are stable and within normal limits for portable technique. The lung wing are clear without acute consolidation, effusion, or pneumothorax. Subtle suspected chronic changes at the left base noted. Skeletal structures are intact. IMPRESSION: No obvious acute focal consolidation. No effusion. <Electronically signed by Lawrence Clark > 02/17/20 [id number]
--- NOTE | 2020-02-17 08:25 | REP ---
INDICATION: fecal impaction COMPARISON: 02/16/2020 TECHNIQUE: Supine view of the abdomen and pelvis. FINDINGS: Bowel gas pattern is relatively stable with fecal stasis primarily noted in the left lower abdomen similar to prior examination. No evidence for small bowel obstruction. No obvious free air. No organomegaly. Contrast identified in partially collapsed bladder. Skeletal structures stable. IMPRESSION: Continued evidence for fecal stasis. <Electronically signed by Lawrence Clark > 02/17/20 0882
[2020-02-17 08:41] LABS: ALT/SGPT 17 U/L (12-78); BILIRUBIN,TOTAL 0.8 MG/DL (0.2-1.0); BLOOD UREA NITROGEN 12 MG/DL (7-18); CALCIUM LEVEL 8.6 MG/DL (8.8-10.2); CARBON DIOXIDE LEVEL 23 MEQ/L (21-32); CHLORIDE LEVEL 102 MEQ/L (98-107); CREATININE FOR GFR 1.09 MG/DL (0.70-1.30); GLOMERULAR FILTRATION RATE > 60.0 (>42); GLUCOSE, FASTING 96 MG/DL (70-100); POTASSIUM SERUM 4.1 MEQ/L (3.5-5.1); SODIUM LEVEL 137 MEQ/L (136-145); TOTAL PROTEIN 6.7 GM/DL (6.4-8.2)
[2020-02-17] MEDS: ASPIRIN 81 MG ENTERIC TAB PO SCH (08:50)
[2020-02-17] MEDS: GABAPENTIN 300 MG CAP PO SCH ×3 (08:50→21:05)
[2020-02-17] MEDS: ENOXAPARIN 40MG/0.4ML SYRINGE (J1650 PER 10MG) SC SCH (08:50)
[2020-02-17] MEDS: DOCUSATE SODIUM 100MG CAPSULE PO SCH ×2 (08:51→21:05)
[2020-02-17] MEDS: FINASTERIDE 5 MG TAB PO SCH (08:51)
[2020-02-17] MEDS: oxyBUTYnin *DITROPAN XL* 5 MG TABCR PO SCH (10:00)
--- NOTE | 2020-02-17 10:10 | IPNPDOC ---
Date Seen The patient was seen on 02/17/20. Progress Note SUBJECTIVE: patient was seen and examined at bedside. Reports persistent LLQ pain. Had a small amount of stool after soap suds enema this morning. OBJECTIVE PHYSICAL EXAMINATION: VITAL SIGNS: please see below General: NAD, comfortable HEENT: PERRLA, EOMI, sclerae clear Neck: supple, normal ROM, no JVD Respiratory: lungs CTAB, no wheeze, no rales, no crackles CVS: RRR, normal S1, S2, no murmurs Abdo: Distended, palpable mass in the left lower quadrant. Painful to palpation in the left lower quadrant. No guarding Extremities: no edema, pulses 2+ MSK: no joint deformities, normal ROM Neuro: no focal neuro deficits, moving all 4 extremities, CN2-12 intact. Strength 5/5 in all 4 extremities. No nystagmus. Psych: calm, cooperative, AAO x 3 LABORATORY DATA, IMAGING STUDIES, MICROBIOLOGY: Please see below. CT abdomen (02/16/20): IMPRESSION: 1. Large focal area of fecal retention at the site of prior resection and anastomosis in the left lower abdomen as described above. Findings may be related to mechanical obstruction at the site of anastomosis. Subtle associated stranding and reactive lymph nodes are identified raising the possibility of an associated focal colitis. Differential diagnosis cannot exclude malignant recurrence. 2. Nonacute findings as described above including 3.4 cm right renal cyst, cholelithiasis, and prostatomegaly. 3. Mild reticulonodular pattern and bronchiectasis in the left lower lobe may reflect chronic changes and appears similar to 2018. Correlation is recommended to exclude superimposed acute early pneumonia. CXR (02/16/20): FINDINGS: The mediastinum and cardiac silhouette are normal. The lung wing are clear and without acute consolidation, effusion, or pneumothorax. The skeletal structures are intact and normal. IMPRESSION: No acute cardiopulmonary process. Abdo xray (02/16/20): IMPRESSION: Significant amount of retained fecal material in the left mid abdomen consistent with recent CT findings including large area of fecal impaction/fecalith at the site of prior sigmoid anastomosis. MICROBIOLOGY: Please see below. ASSESSMENT: 75 her old male with a history of colon cancer, status post chemotherapy and resection in 2013, COPD, diabetes type 2, presented to ER with a 2 day history of worsening abdominal pain. Admitted for management of fecal impaction as well as UTI. PLAN: # Fecal impaction: very large section of impaction 10 cm in diam 15 cm in length. Febrile overnight. Small BM after soap suds enema. Significant pain and fecal impaction persist. Consulted Dr. Crystal. Start antibiotics, cipro and flagyl for concern from ischemic colitis. # UTI: UA+. Urine culture pending. S/p ceftriaxone in ER. Tylenol prn for fevers. # DM2 with neuropathy: ISS. FSBS AC and HS. Hypoglycemic precautions. Check a1c. gabapentin. # Questionable PNA/CAP on CT: febrile overnight, patient has no cough, no WBC. Will monitor clinically. Receiving cipro and flagyl for suspect colitis. # COPD: resume home meds # Hx of colon ca: s/p chemo and resection, anastomosis at sigmoid. CT findings showing reactive LNs at site of impaction which could signify colitis vs recurrence. Last colonoscopy 11/[address] Mariano, grossly normal (1 small adenomatous/tubular adenoma, 1 med polyp (inflammatory) removed). Was meant to r eturn for scope in 5 years). Follows with oncology at [facility]. #hypothyroid: c/w levothyroxine 75 mcg daily #BPH: last PSA 4.7. Followed by Dr. Anderson every 6 months. Oxybutinin. Flomax. Terazosin. DVT ppx: lovenox. SCDs. TEDs Dispo: admitted for obs. Pending successful BM expect patient to return home. Code stats: full code. VS, I&O, 24H, Fishbone Vital Signs/I&O Vital Signs Date Time Temp Pulse Resp B/P (MAP) Pulse Ox O2 Delivery O2 Flow Rate FiO2 02/17/20 06:00 100.8 79 18 118/61 (80) 98 Room Air I&O- Last 24 Hours up to 6 AM 02/17/20 06:00 Intake Total 700 ml Output Total 0 ml Balance 700 ml Laboratory Data 24H LABS Laboratory Tests 2 02/16/20 12:15: Urine Color YONATHAN, Urine Appearance TURBIDH, Urine pH 5.0, Urine Specific Hamer 1.018, Urine Protein 2+H, Urine Glucose (UA) NEGATIVE, Urine Ketones 1+H, Urine Blood 3+H, Urine Nitrite NEGATIVE, Urine Bilirubin NEGATIVE, Urine Urobilinogen 0.2, Urine Leukocyte Esterase 2+H, Urine WBC (Auto) TNTCH, Urine RBC (Auto) TNTCH, Urine Hyaline Casts (Auto) 0, Urine Bacteria (Auto) NEGATIVE, Urine Squamous Epithelial Cells 0, Urine Mucus (Auto) SMALL, Urine Sperm (Auto) 02/16/20 12:29: Immature Granulocyte % (Auto) 0.3, Neutrophils (%) (Auto) 85.6H, Lymphocytes (%) (Auto) 7.5L, Monocytes (%) (Auto) 5.7H, Eosinophils (%) (Auto) 0.7, Basophils (%) (Auto) 0.2, Neutrophils # (Auto) 8.5, Lymphocytes # (Auto) 0.7L, Monocytes # (Auto) 0.6, Eosinophils # (Auto) 0.1, Basophils # (Auto) 0.0, Nucleated Red Blood Cells % (auto) 0.0, Total Bilirubin 1.2H, Direct Bilirubin 0.4H, Aspartate Amino Transf (AST/SGOT) 23, Alanine Aminotransferase (ALT/SGPT) 22, Alkaline Phosphatase 179H, PN-Lbx-D-Type Natriuretic Peptide 182, Total Protein 7.5, Albumin 3.4, Albumin/Globulin Ratio 0.8, Lipase 34L 02/16/20 12:42: POC Glucose (Misc Panel) 149H, POC Sodium (Misc Panel) 137, POC Potassium (Misc Panel) 4.0, POC Chloride (Misc Panel) 98, POC Total CO2 (Misc Panel) 29.0H, POC Blood Urea Nitrogen (Misc Panel 18, POC Ionized Calcium (Misc Panel) 4.5, POC Creatinine (Misc Panel) 1.3, POC Hematocrit (Misc Panel) 46.0 02/16/20 16:08: Coronavirus (COVID-19)(PCR) NEGATIVE 02/16/20 20:24: Bedside Glucose (Misc Panel) 130H 02/17/20 07:05: Immature Granulocyte % (Auto) 0.4, Neutrophils (%) (Auto) 76.1H, Lymphocytes (%) (Auto) 14.0L, Monocytes (%) (Auto) 8.6H, Eosinophils (%) (Auto) 0.8, Basophils (%) (Auto) 0.1, Neutrophils # (Auto) 5.6, Lymphocytes # (Auto) 1.0L, Monocytes # (Auto) 0.6, Eosinophils # (Auto) 0.1, Basophils # (Auto) 0.0, Nucleated Red Blood Cells % (auto) 0.0, Anion Gap 12, Glomerular Filtration Rate > 60.0, Calcium Level 8.6L, Magnesium Level 2.0, Total Bilirubin 0.8, Aspartate Amino Transf (AST/SGOT) 14, Alanine Aminotransferase (ALT/SGPT) 17, Alkaline Phosphatase 177H, Total Protein 6.7, Albumin 3.0L, Albumin/Globulin Ratio 0.8 02/17/20 08:40: Bedside Glucose (Misc Panel) 162H 02/17/20 08:54: Lactic Acid Level 0.8 CBC/BMP Laboratory Tests 02/16/20 12:29 02/17/20 07:05 Microbiology Microbiology 02/17/20 Blood Culture, Received Pending 02/16/20 Urine Culture, Received Pending MARLIN GAMING MD Feb 17, 2020 10:10
[2020-02-17 10:15] VITALS: BP 155/71
[2020-02-17] MEDS: TERAZOSIN 5 MG CAP PO SCH (11:08)
[2020-02-17] MEDS: CIPROFLOXACIN 400 MG in IV 1 EA IV SCH ×2 (11:08→22:23)
[2020-02-17] MEDS: metroNIDAZOLE 500 MG in IV 1 EA IV SCH ×2 (12:19→21:05)
[2020-02-17] MEDS ORDERED: cefTRIAXone SOD 2 GM in D5W MINI-BAG PLUS 50 ML IV SCH (13:00)
[2020-02-17 14:00] VITALS: BP 121/57
[2020-02-17 22:00] VITALS: BP 134/61
[2020-02-18] MEDS: LEVOTHYROXINE 75MCG TABLET (0.075MG) PO SCH (05:14)
[2020-02-18] MEDS: metroNIDAZOLE 500 MG in IV 1 EA IV SCH ×2 (05:15→11:19)
[2020-02-18 06:00] VITALS: BP 136/63
[2020-02-18 07:03] LABS: BASO % 0.5 % (0.0-1.0); EOS # 0.1 10^3/uL (0.0-0.5); EOS % 2.1 % (0.0-3.0); HEMATOCRIT 37.6 % (42.0-52.0); HEMOGLOBIN 11.8 g/dl (13.5-17.5); LYMPH # 0.7 10^3/uL (1.5-5.0); LYMPH % 16.2 % (24.0-44.0); MEAN CORPUSCULAR HEMOGLOBIN 26.3 pg (27.0-33.0); MEAN CORPUSCULAR HGB CONC 31.4 g/dl (32.0-36.5); MEAN CORPUSCULAR VOLUME 83.9 fl (80.0-96.0); MONO # 0.4 10^3/uL (0.0-0.8); MONO % 8.6 % (0.0-5.0); NEUTROPHILS % 72.4 % (36.0-66.0); PLATELET COUNT, AUTOMATED 169 10^3/uL (150-450); RED BLOOD COUNT 4.48 10^6/uL (4.30-6.10); WHITE BLOOD COUNT 4.2 10^3/uL (4.0-10.0)
[2020-02-18 07:16] LABS: ALBUMIN 2.6 GM/DL (3.2-5.2); ALT/SGPT 13 U/L (12-78); BILIRUBIN,TOTAL 0.5 MG/DL (0.2-1.0); BLOOD UREA NITROGEN 11 MG/DL (7-18); CALCIUM LEVEL 8.7 MG/DL (8.8-10.2); CARBON DIOXIDE LEVEL 30 MEQ/L (21-32); CHLORIDE LEVEL 108 MEQ/L (98-107); CREATININE FOR GFR 0.93 MG/DL (0.70-1.30); GLOMERULAR FILTRATION RATE > 60.0 (>42); GLUCOSE, FASTING 120 MG/DL (70-100); POTASSIUM SERUM 4.1 MEQ/L (3.5-5.1); SODIUM LEVEL 141 MEQ/L (136-145); TOTAL PROTEIN 5.8 GM/DL (6.4-8.2)
[2020-02-18] MEDS: HumaLOG INSULIN (NovoLOG) PER UNIT SC SCH ×2 (07:30→11:07)
--- NOTE | 2020-02-18 08:05 | REP ---
INDICATION: ffup fecal impaction COMPARISON: 02/17/2020, 02/16/2020 TECHNIQUE: Supine view of the abdomen and pelvis. FINDINGS: Large focal area of fecal stasis/fecal impaction in the left mid abdomen is essentially unchanged. Bowel gas pattern is without obstruction. IMPRESSION: No significant change from prior examinations including large focal area of fecal stasis/fecal impaction in the left mid abdomen. <Electronically signed by Lawrence Clark > 02/18/20 0822
[2020-02-18 08:16] VITALS: BP 136/64
[2020-02-18] MEDS: TERAZOSIN 5 MG CAP PO SCH (08:16)
[2020-02-18] MEDS: FINASTERIDE 5 MG TAB PO SCH (08:16)
[2020-02-18] MEDS: ASPIRIN 81 MG ENTERIC TAB PO SCH (08:16)
[2020-02-18] MEDS: DOCUSATE SODIUM 100MG CAPSULE PO SCH (08:16)
[2020-02-18] MEDS: GABAPENTIN 300 MG CAP PO SCH ×2 (08:16→16:03)
[2020-02-18] MEDS: oxyBUTYnin *DITROPAN XL* 5 MG TABCR PO SCH (08:17)
[2020-02-18] MEDS: ENOXAPARIN 40MG/0.4ML SYRINGE (J1650 PER 10MG) SC SCH (08:17)
[2020-02-18] MEDS ORDERED: MIRALAX *UNIT DOSE* 17GM PACKET PO SCH (09:00)
--- NOTE | 2020-02-18 10:09 | IPNPDOC ---
Text Note Date of Service The patient was seen on 02/18/20. NOTE Patient has 2 large bms this morning without enemas, feels a lot better On exam, comfortable His abdomen looks very well decompressed. I could no longer feel the colon on the left side. No residual tenderness Impressio and plan: fecal impaction at the level of left colon anastomosis resolved Continue with some laxatives, suggest miralax daily to every other day depending on the effect on him high fiber diet. He had colonoscopy last year and there was no reported stenosis at the anastomosis site, so could very well be just a bad case of constipation/dehydration. follow up with oncology re: lymph nodes at the mesentery, prior colon cancer VS,Ambrocioe, I+O VS, Ambrocioe, I+O Laboratory Tests 02/18/20 06:36 Vital Signs Date Time Temp Pulse Resp B/P (MAP) Pulse Ox O2 Delivery O2 Flow Rate FiO2 02/18/20 08:16 136/64 02/18/20 06:00 97.4 65 18 97 Room Air I&O- Last 24 Hours up to 6 AM 02/18/20 06:00 Intake Total 1140 ml Output Total 0 ml Balance 1140 ml BOO HERNANDEZ MD Feb 18, 2020 10:09
[2020-02-18] MEDS ORDERED: ACET1TAB55 PO (10:32)
[2020-02-18] MEDS ORDERED: PEG1POW PO (10:32)
--- NOTE | 2020-02-18 10:37 | DS.PDOC ---
Discharge Summary General Date of Admission Jan Date of Discharge 02/18/20 Attending Physician: MARLIN GAMING MD Discharge Summary PROCEDURES PERFORMED DURING STAY: [None]. ADMITTING DIAGNOSES: 1. Fecal impaction 2. UTI 3. DM2 4. COPD 5. Hx of colon cancer s/p resection and chemo 6. hypothyroidism 7. BPH. DISCHARGE DIAGNOSES: 1. Fecal impaction 2. UTI 3. DM2 4. COPD 5. Hx of colon cancer s/p resection and chemo 6. hypothyroidism 7. BPH. COMPLICATIONS/CHIEF COMPLAINT: Constipation. HISTORY OF PRESENT ILLNESS: 5 her old male with a history of colon cancer, sta tus post L hemicolectomy and chemo (completed 01/2016), COPD, BPH, diabetes type 2, presented to ER with a 2 day history of worsening abdominal pain. He reports that the pain is worse on the left lower quadrant. It is nonradiating. It is not associated with food. However, he does report not having had a bowel movement approximately 2 days ago. Further, he reports having very dark tea colored urine for the past 2 days however he does not have any dysuria or flank pain. He denies any history of recent blood per rectum, melena or hematemesis. Denies vomiting, nausea or diarrhea. He has no chest pain, chest breath, palpitations. He does also does not have any fevers. UA suggestive of UTI, patient was given dose of ceftriaxone in ER. Repeat CT scan of the abdomen in the ER showing a large focal area of fecal retention at site of prio anastomosis and resection in the left lower abdomen, measuring 10.6 cm in diam x 15 cm in caudal length. Dr. Crystal was called from ER, recommended soap bubble enema, which resulted in a small amount of stool expressed whoever the bulk of fecal impaction did not exit. Vitals reviewed, T 97.4. HR 85. BP 146/65. SpO2 99% on RA. Labs reviewed. WBC 9.9. Hgb 14.3. Hct 46.2. T bili 1.2. D bili 0.4. ALP 179. UA + UTI. HOSPITAL COURSE: Patient was admitted for management of a large fecal impaction in sigmoid colon. CT imaging showed localized lymphadenopathy around the site of the fecal impaction which was at the site of prior anastomosis, status post resection. Patient was given several soap suds enemas and had a large bowel movements, particularly on the day of discharge. He did receive 2 days of antibiotics for suspected localized colitis. However, throughout the course of admission he had no fever and no leukocytosis and no blood in stool, thereforeantibiotics were not continued on discharge except for ciprofloxacin which was used to treat a diagnosed urinary tract infection. His abdominal pain resolved and discussed with Dr. Collado he was discharged home with daily MiraLAX and follow up with oncology (given LNs at site of anastomosis, with possibility of recurrence) as well as general surgery. CT findings and discharge plan were reviewed with patient and he verbalized understanding. Additional problems were addressed as below. # DM2 with neuropathy: ISS. FSBS AC and HS. Hypoglycemic precautions. gabapentin. # Questionable PNA/CAP on CT: afebrile patient had no cough, no WBC. # COPD: resumed home meds # Hx of colon ca: s/p chemo and resection, anastomosis at sigmoid. CT findings showing reactive LNs at site of impaction which could signify colitis vs recurrence. Last colonoscopy 11/[address] Mariano, grossly normal (1 small adenomatous/tubular adenoma, 1 med polyp (inflammatory) removed). Was meant to return for scope in 5 years). Follows with oncology at [facility]. #hypothyroid: c/w levothyroxine 75 mcg daily #BPH: last PSA 4.7. Followed by Dr. Anderson every 6 months. Oxybutinin. Flomax. Terazosin. DISCHARGE MEDICATIONS: Please see below. ALLERGIES: Please see below. PHYSICAL EXAMINATION ON DISCHARGE: VITAL SIGNS: Please see below. General: NAD, comfortable HEENT: PERRLA, EOMI, sclerae clear Neck: supple, normal ROM, no JVD Respiratory: lungs CTAB, no wheeze, no rales, no crackles CVS: RRR, normal S1, S2, no murmurs Abdo: Abdomen is soft. Nontender. No rigidity, no rebound tenderness and no guarding. Palpable stool burden in LLQ. Extremities: no edema, pulses 2+ MSK: no joint deformities, normal ROM Neuro: no focal neuro deficits, moving all 4 extremities, CN2-12 intact. Strength 5/5 in all 4 extremities. No nystagmus. Psych: calm, cooperative, AAO x 3 LABORATORY DATA: Please see below. IMAGING: CT abdomen (02/16/20): IMPRESSION: 1. Large focal area of fecal retention at the site of prior resection and anastomosis in the left lower abdomen as described above. Findings may be related to mechanical obstruction at the site of anastomosis. Subtle associated stranding and reac tive lymph nodes are identified raising the possibility of an associated focal colitis. Differential diagnosis cannot exclude malignant recurrence. 2. Nonacute findings as described above including 3.4 cm right renal cyst, cholelithiasis, and prostatomegaly. 3. Mild reticulonodular pattern and bronchiectasis in the left lower lobe may reflect chronic changes and appears similar to 2018. Correlation is recommended to exclude superimposed acute early pneumonia. CXR (02/16/20): FINDINGS: The mediastinum and cardiac silhouette are normal. The lung wing are clear and without acute consolidation, effusion, or pneumothorax. The skeletal structures are intact and normal. IMPRESSION: No acute cardiopulmonary process. Abdo xray (02/16/20): IMPRESSION: Significant amount of retained fecal material in the left mid abdomen consistent with recent CT findings including large area of fecal impaction/fecalith at the site of prior sigmoid anastomosis. CXR (02/18/20): FINDINGS: The mediastinum and cardiac silhouette are stable and within normal limits for portable technique. The lung wing are clear without acute consolidation, effusion, or pneumothorax. Subtle suspected chronic changes at the left base noted. Skeletal structures are intact. IMPRESSION: No obvious acute focal consolidation. No effusion Abdo plain film (02/18/20): FINDINGS: Large focal area of fecal stasis/fecal impaction in the left mid abdomen is essentially unchanged. Bowel gas pattern is without obstruction. IMPRESSION: No significant change from prior examinations including large focal area of fecal stasis/fecal impaction in the left mid abdomen. PROGNOSIS: good ACTIVITY: As tolerated DIET: High Fiber DISCHARGE PLAN: Discharge home with MiraLAX daily. Follow-up with PCP within 3-5 days and follow up with oncology within 1 week for suspected localized lymphadenopathy near prior site of malignancy. Follow-up with general surgery within 1-2 weeks. DISCHARGE INSTRUCTIONS: . Please follow-up with your primary care doctor within 3-5 days . Please follow-up with oncology within 1 week . Please follow-up with Dr. Mariano within 1-2 weeks . Please taking medications as prescribed. 4 additional days of cipro (antibiotics) for urinary tract infection. . If you develop bleeding, chest pain, shortness of breath, seizures, nausea, fevers, or otherwise worsening of your symptoms, please call 911 or return to the nearest emergency room ITEMS TO FOLLOWUP ON ON OUTPATIENT: Is unsure outpatient oncology follow-up. This patient may require additional workup/colonoscopy to assess for lymphadenopathy at the site of the fecal impaction. DISCHARGE CONDITION: [Stable]. TIME SPENT ON DISCHARGE: 35 minutes Vital Signs/I&Os Vital Signs Date Time Temp Pulse Resp B/P (MAP) Pulse Ox O2 Delivery O2 Flow Rate FiO2 02/18/20 08:16 136/64 02/18/20 06:00 97.4 65 18 97 Room Air I&O- Last 24 Hours up to 6 AM 02/18/20 06:00 Intake Total 1140 ml Output Total 0 ml Balance 1140 ml Laboratory Data Labs 24H Laboratory Tests 2 02/17/20 11:13: Bedside Glucose (Misc Panel) 98 02/17/20 16:25: Bedside Glucose (Misc Panel) 78L 02/17/20 20:24: Bedside Glucose (Misc Panel) 126H 02/18/20 06:36: Immature Granulocyte % (Auto) 0.2, Neutrophils (%) (Auto) 72.4H, Lymphocytes (%) (Auto) 16.2L, Monocytes (%) (Auto) 8.6H, Eosinophils (%) (Auto) 2.1, Basophils (%) (Auto) 0.5, Neutrophils # (Auto) 3.0, Lymphocytes # (Auto) 0.7L, Monocytes # (Auto) 0.4, Eosinophils # (Auto) 0.1, Basophils # (Auto) 0.0, Nucleated Red Blood Cells % (auto) 0.0, Anion Gap 3L, Glomerular Filtration Rate > 60.0, Calc ium Level 8.7L, Magnesium Level 2.0, Total Bilirubin 0.5, Aspartate Amino Transf (AST/SGOT) 18, Alanine Aminotransferase (ALT/SGPT) 13, Alkaline Phosphatase 141H, Total Protein 5.8L, Albumin 2.6L, Albumin/Globulin Ratio 0.8 CBC/BMP Laboratory Tests 02/18/20 06:36 FSBS Laboratory Tests Test 02/17/20 11:13 02/17/20 16:25 02/17/20 20:24 Range/Units Bedside Glucose (Misc Panel) 98 78 126 83-110 MG/DL Microbiology Microbiology 02/17/20 Blood Culture - Preliminary, Resulted No growth after 24 hours . All specim... 02/16/20 Urine Culture - Final, Complete Enterococcus Faecalis Discharge Medications Scheduled Aspirin (Aspirin EC) 81 Mg Tab, 81 MG PO DAILY, (Reported) Ciprofloxacin HCl (Ciprofloxacin HCl) 500 Mg Tablet, 500 MG PO BID Finasteride (Finasteride) 5 Mg Tablet, 5 MG PO DAILY, (Reported) Gabapentin (Gabapentin) 600 Mg Tab, 600 MG PO TID, (Reported) Levothyroxine Sodium (Levothyroxine Sodium) 75 Mcg Tab, 75 MCG PO DAILY, (Reported) Multivitamin (Multivitamins) 1 Each Capsule, 1 CAP PO DAILY, (Reported) Oxybutynin Chloride (Oxybutynin Chloride ER) 15 Mg Tab, 15 MG PO DAILY, (Reported) Polyethylene Glycol 3350 (Polyethylene Glycol 3350) 17 Gm Powd.pack, 1 PKT PO DAILY Sitagliptin Phosphate (Januvia) 25 Mg Tablet, 25 MG PO DAILY, (Reported) Terazosin Hcl (Terazosin HCl) 10 Mg Cap, 10 MG PO DAILY, (Reported) Scheduled PRN Acetaminophen (Acetaminophen) 325 Mg Tablet, 650 MG PO Q6H PRN for PAIN OR FEVER Allergies Coded Allergies: No Known Allergies (Unverified , 04/09/13) MARLIN GAMING MD Feb 18, 2020 10:37
[2020-02-18] MEDS ORDERED: CIPR500T3 PO (10:42)
--- NOTE | 2020-02-18 10:49 | CR.PDOC ---
General Surgery Consultation Date of Consultation 02/17/20 History and Physical CONSULT REPORT FOR: Dr. Mendoza(hospitalist service) REASON FOR CONSULTATION: left side abdominal pain, fecal impaction HISTORY OF PRESENT ILLNESS: Patient is a 75-year-old male presented to the hospital on 02/16/2020 for complaints of left-sided abdominal pain associated with not being able to move his bowels for the past 2 days. His significant history for left-sided colon cancer for which he underwent laparoscopic-assisted left colectomy on June 2013 followed by adjuvant chemotherapy. He has had surveillance colonoscopies done afterwards the last one performed November [address] Hogan with a polyp that was removed at the level of the anastomosis which was an inflammatory-like polyp. No mention of stricture narrowing at the anastomosis. He was able to completely colonoscopy to the cecum. He reports daily regular bowel movements and no severe constipation or obstipation up until 2 days ago. In the emergency room he was worked up and was found to have distention of the left side of the colon prior to the anastomosis that was filled with solid stool which is reason for his discomfort. He is subsequently admitted under the hospitalist service. He is somewhat nauseated though he is able to tolerate food. Save for the left- sided discomfort, he denies any other abdominal discomfort nor does not feel too bloated. He continues to be able to pass flatus. PAST MEDICAL HISTORY: 1. Adenocarcinoma left side of the colon ([id number]). PAST SURGICAL HISTORY: INCLUDES: 1. Endoscopic assisted left colectomy 2. Right inguinal hernia repair and laparoscopic 3. Open incisional hernia repair at the midline incisional hernia with onlay mesh 11 x 6 cm after closure of the fascia 4. COPD/emphysema 5. BPH 6. Diabetes. ALLERGIES: Please see below. HOME MEDICATIONS: Please see below. REVIEW OF SYSTEMS: GENERAL: Denies any fevers chills, recent illness, any unexplained weight loss. HEENT: Denies any blurring of vision, hearing problems. NECK: Denies any neck pain CARDIOVASCULAR: Denies chest pain and palpitations. MUSCULOSKELETAL: Denies arthralgias, back pain. SKIN: Denies rash. NEUROLOGIC: Denies headache, stroke and transient ischemic attack. HEMATOLOGY/ONCOLOGY: He has last been seen by our oncologist on regular follow- up in August 2019. He has completed adjuvant FOLFOX hemotherapy following diagnosis of colon cancer and left hemicolectomy in 2013. HEART: Denies any chest pains, palpitations, paroxysmal dyspnea, orthopnea. PULMONARY: Reports significant history for emphysema, has chronic cough, nonproductive. GASTROINTESTINAL: See HPI. GENITOURINARY: Has significant history for BPH follows up with urology. ENDOCRINE: Denies polydipsia, polyphagia, polyuria, heat or cold intolerance. INFECTIOUS: Denies any recent upper respiratory tract infection, UTI, need for use of antibiotics. NUTRITION: Reports good appetite. PHYSICAL EXAMINATION: VITALS SIGNS: Please see below. GENERAL APPEARANCE:Patient seen, laying in bed, awake, alert, and oriented. Comfortable, in no acute distress. SKIN: Warm and moist. HEENT: Normocephalic, atraumatic. Rison palpebral conjunctiva, anicteric sclerae. Lips and mucosa appear moist. NECK: Supple, no thyromegaly. No obvious jugular venous distention. LUNGS: Clear to auscultation bilaterally. No wheezing appreciated. HEART: No chest wall abnormalities. Regular rate and rhythm with no murmurs appreciated. ABDOMEN: Soft abdomen, minimally distended. Overall benign in appearance. Incisions inspected, no obvious incisional hernia. Over to the left side on deep palpation I could feel the left side of the colon which is hard, mobile. Minimally tender over that area with manipulation of the left colon. Right side of the abdomen is soft, nondistended and nontender. Midline is not distended. EXTREMITIES: Extremities have no deformities. No edema identified ANCILLARIES: . LABORATORY DATA: Please see below. IMAGING STUDIES: He had a CT abdomen and pelvis likewise follow-up x-rays from yesterday evening as well as this morning today reviewed IMPRESSION AND PLAN: History of left colon cancer T4 N1 M0 in 2014 status post left colectomy followed by adjuvant FOLFOX chemotherapy with: Surveillance being done. Last colonoscopy was in 2019 Fecal impaction , Patient had a very bad constipation has fecally impacted up higher in the left colon at the level of the anastomosis. This appears pretty solidified. It may be causing some mechanical obstruction that area but no full-blown obstruction that I could see. Overall patient is relatively stable save for the discomfort from the stool being impacted in that side and has localized tenderness over that area. No signs of perforation, colitis. I suggest continuing with daily soapsuds enema to loosen up the hardened stool from the bottom and hopefully released as suction effect of the hard stool meeting up on the sidewall of the colon. I reviewed the prior colonoscopies and there was no sign of any stricture in mention during his 3 or 4 surveillance colonoscopy that has been done postoperatively. He also does not complain of any chronic abdominal or: Constipations. We'll also add some MiraLAX to help from above. If not successful may need colonoscopic decompression though this will be hard given that this is a solid stool and this will be an unprepped colon. Will follow. Vital Signs Vital Signs Date Time Temp Pulse Resp B/P (MAP) Pulse Ox O2 Delivery O2 Flow Rate FiO2 02/18/20 08:16 136/64 02/18/20 06:00 97.4 65 18 97 Room Air I&Os I&O- Last 24 Hours up to 6 AM 02/18/20 06:00 Intake Total 1140 ml Output Total 0 ml Balance 1140 ml Laboratory Data Labs 24H Laboratory Tests 2 02/17/20 11:13: Bedside Glucose (Misc Panel) 98 02/17/20 16:25: Bedside Glucose (Misc Panel) 78L 02/17/20 20:24: Bedside Glucose (Misc Panel) 126H 02/18/20 06:36: Immature Granulocyte % (Auto) 0.2, Neutrophils (%) (Auto) 72.4H, Lymphocytes (%) (Auto) 16.2L, Monocytes (%) (Auto) 8.6H, Eosinophils (%) (Auto) 2.1, Basophils (%) (Auto) 0.5, Neutrophils # (Auto) 3.0, Lymphocytes # (Auto) 0.7L, Monocytes # (Auto) 0.4, Eosinophils # (Auto) 0.1, Basophils # (Auto) 0.0, Nucleated Red Blood Cells % (auto) 0.0, Anion Gap 3L, Glomerular Filtration Rate > 60.0, Calcium Level 8.7L, Magnesium Level 2.0, Total Bilirubin 0.5, Aspartate Amino Transf (AST/SGOT) 18, Alanine Aminotransferase (ALT/SGPT) 13, Alkaline Phosphatase 141H, Total Protein 5.8L, Albumin 2.6L, Albumin/Globulin Ratio 0.8 CBC/BMP Laboratory Tests 02/18/20 06:36 Microbiology Microbiology 02/17/20 Blood Culture - Preliminary, Resulted No growth after 24 hours . All specim... 02/16/20 Urine Culture - Final, Complete Enterococcus Faecalis Home Medications Scheduled Aspirin (Aspirin EC) 81 Mg Tab, 81 MG PO DAILY, (Reported) Ciprofloxacin HCl (Ciprofloxacin HCl) 500 Mg Tablet, 500 MG PO BID Finasteride (Finasteride) 5 Mg Tablet, 5 MG PO DAILY, (Reported) Gabapentin (Gabapentin) 600 Mg Tab, 600 MG PO TID, (Reported) Levothyroxine Sodium (Levothyroxine Sodium) 75 Mcg Tab, 75 MCG PO DAILY, (Reported) Multivitamin (Multivitamins) 1 Each Capsule, 1 CAP PO DAILY, (Reported) Oxybutynin Chloride (Oxybutynin Chloride ER) 15 Mg Tab, 15 MG PO DAILY, (Reported) Polyethylene Glycol 3350 (Polyethylene Glycol 3350) 17 Gm Powd.pack, 1 PKT PO DAILY Sitagliptin Phosphate (Januvia) 25 Mg Tablet, 25 MG PO DAILY, (Reported) Terazosin Hcl (Terazosin HCl) 10 Mg Cap, 10 MG PO DAILY, (Reported) Scheduled PRN Acetaminophen (Acetaminophen) 325 Mg Tablet, 650 MG PO Q6H PRN for PAIN OR FEVER Allergies Coded Allergies: No Known Allergies (Unverified , 04/09/13) BOO HERNANDEZ MD Feb 18, 2020 10:49
[2020-02-18] MEDS: CIPROFLOXACIN 400 MG in IV 1 EA IV SCH (11:00)
[2020-02-18 14:00] VITALS: BP 92/49
== END 2020-02-18 17:40 | disposition home or self-care (01) | DRG 394 ==
LOC: M ED 11:55 → M ED INP 11:56 → ENRESERV 17:58 → M MSPAV 18:41 → INTOOBSV 02-17 10:10 → OBSVTOIN 02-17 10:10 → M MS5PR 02-17 10:14
PROVIDERS: ADMIT Family Medicine; ATTEND Family Medicine
DX: K91.89 Other postprocedural complications and disorders of digestive system (principal); N39.0 Urinary tract infection, site not specified; K56.41 Fecal impaction; E11.40 Type 2 diabetes mellitus with diabetic neuropathy, unspecified; J44.9 Chronic obstructive pulmonary disease, unspecified; E03.9 Hypothyroidism, unspecified; N40.0 Benign prostatic hyperplasia without lower urinary tract symptoms; Z79.82 Long term (current) use of aspirin; Z79.899 Other long term (current) drug therapy; Z85.038 Personal history of other malignant neoplasm of large intestine; Z90.49 Acquired absence of other specified parts of digestive tract; Z92.21 Personal history of antineoplastic chemotherapy; Y83.2 Surgical operation with anastomosis, bypass or graft as the cause of abnormal reaction of the patient, or of later complication, without mention of misadventure at the time of the procedure

== ENCOUNTER 2020-03-07 04:21 | Observation (INO) | payer MEDICARE ==
[~2020-03-07] VITALS: Ht 167.6 cm; Wt 59.6 kg
[~2020-03-07 04:21] MED LIST changes: +CIPR500T3 PO; +COLC0.6T47; +MULTTAB61 PO; +PEG1POW PO
[2020-03-07 05:44] LABS: BASO % 0.3 % (0.0-1.0); HEMATOCRIT 37.6 % (42.0-52.0); HEMOGLOBIN 11.3 g/dl (13.5-17.5); LYMPH # 0.4 10^3/uL (1.5-5.0); LYMPH % 12.1 % (24.0-44.0); MEAN CORPUSCULAR HEMOGLOBIN 25.6 pg (27.0-33.0); MEAN CORPUSCULAR HGB CONC 30.1 g/dl (32.0-36.5); MEAN CORPUSCULAR VOLUME 85.1 fl (80.0-96.0); MONO # 0.4 10^3/uL (0.0-0.8); MONO % 12.5 % (0.0-5.0); NEUTROPHILS # 2.3 10^3/uL (1.5-8.5); NEUTROPHILS % 74.4 % (36.0-66.0); PLATELET COUNT, AUTOMATED 127 10^3/uL (150-450); RED BLOOD COUNT 4.42 10^6/uL (4.30-6.10); WHITE BLOOD COUNT 3.1 10^3/uL (4.0-10.0)
[2020-03-07 05:51] LABS: INR 1.12; PROTHROMBIN TIME 14.7 SECONDS (12.5-14.3)
[2020-03-07 05:52] LABS: PARTIAL THROMBOPLASTIN TIME 35.7 SECONDS (24.2-38.5)
[2020-03-07 05:54] LABS: D-DIMER QUANT 800.49 ng/ml (<500)
[2020-03-07 05:56] LABS: ALBUMIN 3.2 GM/DL (3.2-5.2); ALT/SGPT 33 U/L (12-78); BILIRUBIN,TOTAL 0.5 MG/DL (0.2-1.0); BLOOD UREA NITROGEN 18 MG/DL (7-18); CALCIUM LEVEL 8.2 MG/DL (8.8-10.2); CARBON DIOXIDE LEVEL 28 MEQ/L (21-32); CHLORIDE LEVEL 105 MEQ/L (98-107); CK-MB VALUE MASS 1.4 NG/ML (<3.6); CPK CREATINE PHOSPHOKINASE 135 U/L (39-308); CREATININE FOR GFR 1.54 MG/DL (0.70-1.30); FERRITIN 64 NG/ML (26-388); GLUCOSE, FASTING 168 MG/DL (70-100); LDH LACTATE DEHYDROGENASE 172 U/L (87-241); MB/CK RELATIVE INDEX 1.04 (< OR =4); POTASSIUM SERUM 4.2 MEQ/L (3.5-5.1); SODIUM LEVEL 140 MEQ/L (136-145); TROPONIN I < 0.02 NG/ML (< 0.10)
[2020-03-07] MEDS ORDERED: ISOVUE-370 76% 100ML VIAL As Ordered ONE (06:28)
[2020-03-07] MEDS ORDERED: NS 1,000 ML IV ONE (06:30)
--- NOTE | 2020-03-07 07:28 | REPVR ---
PROCEDURE INFORMATION: Exam: CT Angiography Chest With Contrast Exam date and time: 03/07/2020 6:20 AM Age: 75 years old Clinical indication: Shortness of breath; Patient HX: Covid +; Additional info: SOB +dimer TECHNIQUE: Imaging protocol: Computed tomographic angiography of the chest with intravenous contrast. 3D rendering (Not supervised by radiologist): MIP and/or 3D reconstructed images were created by the technologist. Radiation optimization: All CT scans at this facility use at least one of these dose optimization techniques: automated exposure control; mA and/or kV adjustment per patient size (includes targeted exams where dose is matched to clinical indication); or iterative reconstruction. Contrast material: ISO; Contrast volume: 75 ml; Contrast route: INTRAVENOUS (IV); COMPARISON: CT Chest with contrast 02/24/2019 2:14 PM FINDINGS: Pulmonary arteries: The pulmonary arteries are not enlarged. No filling defects are seen to indicate an acute pulmonary embolism. Aorta: The aorta demonstrates mild atherosclerotic calcification. There is no thoracic aortic aneurysm or evidence of dissection. Lungs: There is bronchial wall thickening in the left lower lobe. Tree-in-bud opacities previously seen in the left lower lobe are no longer identified. Clustered calcified granulomata are again noted in the left lower lobe. There are increased reticulations, mild volume loss, and a small band of consolidation in the left lower lobe, which may reflect postinflammatory changes but an acute component is possible. There is a 5 mm ground-glass nodule posteriorly in the left upper lobe (image 110 of series 401) which is unchanged from the prior exam. Pleural space: No pleural effusions or pneumothorax identified. Heart: The heart is normal in size. There is moderate atherosclerotic calcification of the coronary arteries. Lymph nodes: No lymphadenopathy is seen. Gallbladder and bile ducts: Gallstones are present. Pancreas: There is diffuse, benign fatty infiltration of the pancreas. Kidneys and ureters: A small, partially calcified structure in the left superior retroperitoneum is likely a residual markedly atrophic left kidney. It is again only partially included but appears grossly unchanged from the prior exam. Bones/joints: No suspicious osseous lesions. No acute fractures. Soft tissues: Mild gynecomastia is noted. IMPRESSION: 1. No evidence of acute pulmonary embolism. 2. Changes in the left lower lobe, much of which probably represents chronic, postinflammatory change. However, there is bronchial wall thickening indicative of bronchitis which may be acute or chronic, and the parenchymal changes could have an acute on chronic infectious/inflammatory component. 3. 5 mm ground-glass nodule in the left upper lobe, unchanged compared to the prior exam. No routine follow-up is indicated. (Reference: Clement) REFERENCES: Clement Blake, et al. Guidelines for Management of Incidental Pulmonary Nodules Detected on CT Images: From the Fleischner Society 2017. Radiology. 2017;284(1):228-243. Electronically signed by: Supriya Lovell On 03/07/2020 07:28:21 AM
--- NOTE | 2020-03-07 07:43 | REP ---
INDICATION: Coronavirus workup. COMPARISON: Portable chest dated 02/17/2020 and PA and lateral chest dated 02/16/2020. TECHNIQUE: Single AP view of the chest performed portably with the patient sitting. FINDINGS: The lung wing are clear. Cardiac size is normal. The nate, mediastinum and skeletal structures are unremarkable. There are no interval changes. IMPRESSION: Essentially negative portable chest <Electronically signed by Fredy Galvan > 03/07/20 [id number]
--- NOTE | 2020-03-07 08:12 | ECGEPIP ---
[facility] - ED Test Date: 2020-03-07 Pat Name: OH BRENNAN Department: Room: - Gender: Male Press Hand: SEUN : 1945 Requested By: BRAD JETER Order Number: [id number] Reading MD: Neto Burkett Measurements Intervals [place] Rate: 69 P: 56 MN: 168 QRS: -21 QRSD: 98 T: 33 QT: 364 QTc: 392 Interpretive Statements SINUS RHYTHM WITH MARKED SINUS ARRHYTHMIA NO PRIORS FOR COMPARISON Electronically Signed on 03-07-2020 8:12:08 EST by Neto Burkett
[2020-03-07] MEDS ORDERED: ACETAMINOPHEN TAB 650MG DOSE (2X325MG) PO ONE (08:15)
--- NOTE | 2020-03-07 10:07 | HPEPDOC ---
[facility] Medical History & Physical Date of Admission Mar 07, 2020 Date of Service: Mar 07, 2020 History and Physical CHIEF COMPLAINT: Weakness HISTORY OF PRESENT ILLNESS: 75M PMHx Colon cancer s/p L hemicolectomy and chemo, COPD, DM2, BPH, presents to the ER with 1 day history of weakness and fatigue at home, he lives by himself and is independent at home. In the ED patient was found to be COVID+. He says he's been having myalgia, some weakness, headache, mild cough. Denies any n/v/diarrhea. Some SOB only on exertion. Patient will be admitted to medical unit for observation for IVF hydration and work with physical therapy. PAST MEDICAL HISTORY: 1. Colon cancer s/p resection and checmo 2015 2. COPD/emphysema 3. BPH 4. DM2 PAST SURGICAL HISTORY: 1. L hemicolectomy for colon ca 2. R eye cataract SOCIAL HISTORY: Denies alcohol use Denies tobacco use actively quit 20 years ago Denies illicit drug use Lives alone independently FAMILY HISTORY: Mother - Alzheimer's Father - lung and laryngeal ca Brother - colon ca Daughter - asthma ALLERGIES: Please see below. REVIEW OF SYSTEMS: 10 point review of systems complete all negative otherwise stated in HPI HOME MEDICATIONS: Please see below. PHYSICAL EXAMINATION: Constitutional: Awake and alert, in no apparent distress. Working with PT at bedside. ENT: Sclera are clear. Mucosa is moist. Respiratory: Lungs CTA bilaterally. No respiratory distress. No use of accessory muscles. Saturating 96% on room air. Cardiovascular: RRR S1 and S2 are normal Gastrointestinal: Abdomen is soft, non distended, non tender with no rebound, BS present. Musculoskeletal: No edema. RUE 5/5, LUE 5/5, BLE 5/5 Neurologic: No focal neurological deficit. Mental Status: A&O x3, normal affect Skin: Warm, dry LABORATORY DATA: See below. IMAGING: CT Angiography Chest With Contrast 03/07/2020 6:20 AM IMPRESSION: 1. No evidence of acute pulmonary embolism. 2. Changes in the left lower lobe, much of which probably represents chronic, postinflammatory change. However, there is bronchial wall thickening indicative of bronchitis which may be acute or chronic, and the parenchymal changes could have an acute on chronic infectious/inflammatory component. 3. 5 mm ground-glass nodule in the left upper lobe, unchanged compared to the prior exam. No routine follow-up is indicated. MICROBIOLOGY: Please see below. ASSESSMENT/PLAN 75M PMHx Colon cancer s/p L hemicolectomy and chemo, COPD, DM2, BPH, presents to the ER with 1 day history of weakness and fatigue at home. In the ED patient was found to be COVID+. Admitted for observation for IV fluids for dehydration, weakness, and REBA. # COVID19 infection: Not requiring supplemental oxygen. Med/Surg. Tylenol for fevers. Trend inflammatory markers. # Weakness: 2/2 COVID infection and dehydration. IV fluid hydration. PT/OT. # REBA: 2/2 dehydration. IVFs. Avoid nephrotoxins. Might worsen initially from CT angio contrast # DM2 with neuropathy: ISS. Frequent Accu-Cheks. Hypoglycemic precautions. gabap entin. # COPD: Not in exacerbation. Resume home meds # Hx of colon ca: s/p chemo and resection, anastomosis at sigmoid. Follows with oncology at [facility]. # Hypothyroidism: resume Synthroid. # BPH: Follows by Dr. Anderson every 6 months. Oxybutinin. Flomax. Terazosin. # DVT prophylaxis: Lovenox A [facility] Hospitalist Vital Signs Vital Signs Date Time Temp Pulse Resp B/P (MAP) Pulse Ox O2 Delivery O2 Flow Rate FiO2 03/07/20 09:45 101.1 83 93 03/07/20 08:21 26 Room Air 03/07/20 08:00 136/58 (84) Laboratory Data Labs 24H Laboratory Tests 2 03/07/20 04:59: Immature Granulocyte % (Auto) 0.7, Neutrophils (%) (Auto) 74.4H, Lymphocytes (%) (Auto) 12.1L, Monocytes (%) (Auto) 12.5H, Eosinophils (%) (Auto) 0.0, Basophils (%) (Auto) 0.3, Neutrophils # (Auto) 2.3, Lymphocytes # (Auto) 0.4L, Monocytes # (Auto) 0.4, Eosinophils # (Auto) 0.0, Basophils # (Auto) 0.0, Nucleated Red Blood Cells % (auto) 0.0, Prothrombin Time 14.7H, Prothromb Time International Ratio 1.12, Activated Partial Thromboplast Time 35.7, D-Dimer, Quantitative 800.49H, Anion Gap 7L, Glomerular Filtration Rate 47.0, Calcium Level 8.2L, Ferritin 64, Total Bilirubin 0.5, Aspartate Amino Transf (AST/SGOT) 44H, Alanine Aminotransferase (ALT/SGPT) 33, Alkaline Phosphatase 117, Lactate Dehydrogenase 172, Total Creatine Kinase 135, Creatine Kinase MB 1.4, Creatine Kinase MB Relative Index 1.04, Troponin I < 0.02, Total Protein 7.0, Albumin 3.2, Albumin/Globulin Ratio 0.8, Procalcitonin 0.21 CBC/BMP Laboratory Tests 03/07/20 04:59 Microbiology Microbiology 03/07/20 Blood Culture, Received Pending 03/07/20 Respiratory Virus Panel (PCR) (JIN) - Final, Complete SARS-CoV-2 (COVID 19) Home Medications Scheduled Aspirin (Aspirin EC) 81 Mg Tab, 81 MG PO DAILY Finasteride (Finasteride) 5 Mg Tablet, 5 MG PO DAILY Gabapentin (Gabapentin) 600 Mg Tab, 600 MG PO TID Levothyroxine Sodium (Levothyroxine Sodium) 75 Mcg Tab, 75 MCG PO DAILY Oxybutynin Chloride (Oxybutynin Chloride ER) 15 Mg Tab, 15 MG PO DAILY Sitagliptin Phosphate (Januvia) 25 Mg Tablet, 25 MG PO DAILY Terazosin Hcl (Terazosin HCl) 10 Mg Cap, 10 MG PO DAILY Miscellaneous Medications Multivitamin (Multivitamins) 1 Each Tablet, 1 TAB PO Allergies Coded Allergies: No Known Allergies (Unverified , 03/07/20) A-FIB/CHADSVASC A-FIB History Current/History of A-Fib/PAF?: No TERRANCE ACOSTA MD Mar 07, 2020 10:07
[2020-03-07 11:00] VITALS: BP 105/51
[2020-03-07] MEDS: NS 1,000 ML IV SCH ×2 (12:58→22:47)
[2020-03-07] MEDS: ENOXAPARIN 40MG/0.4ML SYRINGE (J1650 PER 10MG) SC SCH (12:58)
[2020-03-07 13:37] VITALS: BP 110/53
[2020-03-07 15:00] VITALS: O2SAT 95
[2020-03-07 19:29] VITALS: BP 110/51
[2020-03-08 03:57] VITALS: BP 118/55
[2020-03-08 08:00] VITALS: BP 122/56
[2020-03-08 08:17] LABS: HEMATOCRIT 35.3 % (42.0-52.0); HEMOGLOBIN 10.5 g/dl (13.5-17.5); LYMPH # 0.7 10^3/uL (1.5-5.0); LYMPH % 20.5 % (24.0-44.0); MEAN CORPUSCULAR HEMOGLOBIN 25.6 pg (27.0-33.0); MEAN CORPUSCULAR HGB CONC 29.7 g/dl (32.0-36.5); MEAN CORPUSCULAR VOLUME 86.1 fl (80.0-96.0); MONO # 0.3 10^3/uL (0.0-0.8); MONO % 8.5 % (0.0-5.0); NEUTROPHILS # 2.4 10^3/uL (1.5-8.5); NEUTROPHILS % 70.7 % (36.0-66.0); PLATELET COUNT, AUTOMATED 107 10^3/uL (150-450); WHITE BLOOD COUNT 3.4 10^3/uL (4.0-10.0)
[2020-03-08 08:30] LABS: INR 1.11; PROTHROMBIN TIME 14.5 SECONDS (12.5-14.3)
[2020-03-08 08:32] LABS: PARTIAL THROMBOPLASTIN TIME 37.7 SECONDS (24.2-38.5)
[2020-03-08 08:35] LABS: D-DIMER QUANT 906.56 ng/ml (<500)
[2020-03-08] MEDS: ENOXAPARIN 40MG/0.4ML SYRINGE (J1650 PER 10MG) SC SCH (08:42)
[2020-03-08 08:47] LABS: ALBUMIN 2.4 GM/DL (3.2-5.2); ALT/SGPT 28 U/L (12-78); BILIRUBIN,DIRECT 0.2 MG/DL (0.0-0.2); BILIRUBIN,TOTAL 0.4 MG/DL (0.2-1.0); BLOOD UREA NITROGEN 17 MG/DL (7-18); C REACTIVE PROTEIN QUANTITATIV 4.08 MG/DL (0.00-0.30); CALCIUM LEVEL 7.4 MG/DL (8.8-10.2); CARBON DIOXIDE LEVEL 24 MEQ/L (21-32); CHLORIDE LEVEL 111 MEQ/L (98-107); CREATININE FOR GFR 1.03 MG/DL (0.70-1.30); FERRITIN 96 NG/ML (26-388); GLOMERULAR FILTRATION RATE > 60.0 (>42); GLUCOSE, FASTING 73 MG/DL (70-100); POTASSIUM SERUM 4.5 MEQ/L (3.5-5.1); SODIUM LEVEL 143 MEQ/L (136-145); TOTAL PROTEIN 5.2 GM/DL (6.4-8.2)
--- NOTE | 2020-03-08 12:19 | IPNPDOC ---
Text Note Date of Service The patient was seen on 03/08/20. NOTE Subjective: Patient seen and examined this morning at bedside. Patient tells me his feeling much better and feels like his rate ago. He is not needed to supplement oxygen at any point. He tolerated working with physical therapy well and did not drop her saturation while ambulating or rest. He denies any shortness of breath currently or chest pain. He still feels a little tired but much better from before Objective: Constitutional: Awake and alert, in no apparent distress. ENT: Sclera are clear Respiratory: Lungs CTA bilaterally. No respiratory distress. No use of acc essory muscles. Saturating 98% on room air. Cardiovascular: RRR S1 and S2 are normal Gastrointestinal: Abdomen is soft, non distended, non tender with no rebound Musculoskeletal: No edema. Neurologic: No focal neurological deficit. Mental Status: A&O x3, normal affect Skin: Warm, dry Assessment/plan: 75M PMHx Colon cancer s/p L hemicolectomy and chemo, COPD, DM2, BPH, presents to the ER with 1 day history of weakness and fatigue at home. In the ED patient was found to be COVID+. Admitted for observation for IV fluids for dehydration, weakness, and REBA. Patient's REBA resolved with IV fluids. He also felt less weak after being hydrated. At no point patient require supplement oxygen due to the Covid infection and saturated well both at rest and on ambulation and worked well with physical therapy as patient lives by himself independently at home. Patient was cleared for discharge 03/08/2020. # COVID19 infection: Not requiring supplemental oxygen. Tylenol for fevers. # Weakness: 2/2 COVID infection and dehydration. Improved with IV fluid hydration. PT/OT cleared patient for discharge to home # REBA: 2/2 dehydration. IVFs. Avoid nephrotoxins. Might worsen initially from CT angio contrast # DM2 with neuropathy: ISS. Frequent Accu-Cheks. Hypoglycemic precautions. gabapentin. # COPD: Not in exacerbation. Resume home meds # Hx of colon ca: s/p chemo and resection, anastomosis at sigmoid. Follows with oncology at [facility]. # Hypothyroidism: resume Synthroid. # BPH: Follows by Dr. Anderson every 6 months. Oxybutinin. Flomax. Terazosin. [facility]ist Ulysses HUDSON, I+O VS, Ulysses, I+O Laboratory Tests 03/08/20 07:17 Vital Signs Date Time Temp Pulse Resp B/P (MAP) Pulse Ox O2 Delivery O2 Flow Rate FiO2 03/08/20 08:00 100.7 67 18 122/56 (78) 99 Room Air I&O- Last 24 Hours up to 6 AM 03/08/20 06:00 Intake Total 1600 ml Balance 1600 ml TERRANCE ACOSTA MD Mar 08, 2020 12:19
[2020-03-08] MEDS ORDERED: VENTAER INH (12:21)
[2020-03-08] MEDS ORDERED: ACET325C5 PO (12:21)
== END 2020-03-08 14:40 | disposition home health service (06) ==
LOC: M ED 04:21 → M ED INP 04:22 → ENRESERV 10:09 → M 4MAIN 11:00
PROVIDERS: ADMIT Family Medicine; ATTEND Family Medicine
DX: U07.1 COVID-19 (principal); R53.1 Weakness; N17.9 Acute kidney failure, unspecified; E86.0 Dehydration; E11.40 Type 2 diabetes mellitus with diabetic neuropathy, unspecified; J44.9 Chronic obstructive pulmonary disease, unspecified; E03.9 Hypothyroidism, unspecified; N40.0 Benign prostatic hyperplasia without lower urinary tract symptoms; Z87.891 Personal history of nicotine dependence; Z79.899 Other long term (current) drug therapy; Z79.82 Long term (current) use of aspirin; Z85.038 Personal history of other malignant neoplasm of large intestine
CPT/HCPCS: 36415; 71045; 71275; 80048; 80053; 80076; 82550; 82553; 82728; 83615; 83735; 84145; 84484; 85025; 85379; 85384; 85610; 85730; 86140; 87040; 87486; 87581; 87633; 87798; 93005; 96360; 96361; 96372; 97110; 97116; 97161; 97165; 97530; 99285; G0378; J1650; Q9967

== ENCOUNTER 2020-03-26 10:41 | Observation (INO) | payer MEDICARE, MEDICAID ==
[~2020-03-26] VITALS: Ht 165.1 cm; Wt 61.8 kg
[~2020-03-26 10:41] MED LIST changes: +ACET325C5 PO; +VENTAER INH
[2020-03-26 11:17] LABS: BASO % 0.1 % (0.0-1.0); HEMATOCRIT 36.9 % (42.0-52.0); HEMOGLOBIN 11.4 g/dl (13.5-17.5); LYMPH # 0.5 10^3/uL (1.5-5.0); LYMPH % 4.7 % (24.0-44.0); MEAN CORPUSCULAR HGB CONC 30.9 g/dl (32.0-36.5); MEAN CORPUSCULAR VOLUME 84.1 fl (80.0-96.0); MONO # 0.9 10^3/uL (0.0-0.8); MONO % 8.8 % (0.0-5.0); NEUTROPHILS # 8.6 10^3/uL (1.5-8.5); PLATELET COUNT, AUTOMATED 310 10^3/uL (150-450); RED BLOOD COUNT 4.39 10^6/uL (4.30-6.10)
[2020-03-26 11:41] LABS: ERYTHROCYTE SEDIMENTATION RATE 83 mm/hr (0-20)
[2020-03-26 12:10] LABS: ALBUMIN 2.4 GM/DL (3.2-5.2); ALT/SGPT 25 U/L (12-78); BILIRUBIN,TOTAL 1.2 MG/DL (0.2-1.0); BLOOD UREA NITROGEN 13 MG/DL (7-18); CALCIUM LEVEL 9.1 MG/DL (8.8-10.2); CARBON DIOXIDE LEVEL 25 MEQ/L (21-32); CHLORIDE LEVEL 102 MEQ/L (98-107); CREATININE FOR GFR 0.91 MG/DL (0.70-1.30); GLOMERULAR FILTRATION RATE > 60.0 (>42); GLUCOSE, FASTING 165 MG/DL (70-100); POTASSIUM SERUM 4.9 MEQ/L (3.5-5.1); SODIUM LEVEL 136 MEQ/L (136-145); TOTAL PROTEIN 7.2 GM/DL (6.4-8.2); URIC ACID 8.2 MG/DL (3.5-7.2)
--- NOTE | 2020-03-26 12:15 | REP ---
INDICATION: Swelling COMPARISON: None. TECHNIQUE: AP, lateral, bilateral oblique views . FINDINGS: Generalized soft tissue swelling noted. No acute fracture or dislocation is appreciated. No subcutaneous emphysema or foreign body. IMPRESSION: Generalized swelling.. No acute fracture or dislocation. <Electronically signed by Lawrence Clark > 03/26/20 [id number]
[2020-03-26] MEDS ORDERED: NORCO, ANEXSIA 5/325MG TABLET (HYDROcodone/ACETAMINOPHEN) PO ONE (12:45)
[2020-03-26] MEDS ORDERED: predniSONE 20 MG TAB PO ONE (13:00)
[2020-03-26] MEDS ORDERED: AMPICILLIN SOD/SULBACTAM SOD 3 GM in D5W MINI-BAG PLUS 100 ML IV ONE (13:00)
--- NOTE | 2020-03-26 13:09 | REP ---
INDICATION: ankle pain COMPARISON: 04/16/2018. TECHNIQUE: Four views right ankle. FINDINGS: There is no evidence of acute fracture, dislocation, or intrinsic bone disease.The ankle mortise is anatomic. There are vascular calcifications in the soft tissues. IMPRESSION: No fracture or dislocation. <Electronically signed by Fredy Sapp > 03/26/20 [id number]
--- NOTE | 2020-03-26 13:09 | REP ---
INDICATION: ankle pain. COMPARISON: Comparison radiograph March 07, 2020.. TECHNIQUE: Portable AP sitting chest radiograph. FINDINGS: Monitoring electrodes are seen. The heart is not enlarged. There are linear densities in the left base consistent with platelike atelectasis versus early infiltrate. Pleural angles are sharp. There is a dextroconvex curvature in the thoracic spine unchanged. Pulmonary vasculature is not increased. IMPRESSION: Increased markings in the left base consistent with discoid atelectasis versus infiltrate. Otherwise no acute disease. <Electronically signed by Blake Rajan > 03/26/20 [id number]
[2020-03-26] MEDS ORDERED: [UNRECOGNIZED DRUG - CODE] PO (13:32)
[2020-03-26] MEDS ORDERED: pt comment (13:32)
[2020-03-26] MEDS ORDERED: DEXTROSE 50% 50 ML SYRINGE IV PRN (13:45)
[2020-03-26] MEDS ORDERED: GLUCOSE 4GM CHEW TABLET PO PRN (13:45)
[2020-03-26] MEDS ORDERED: GLUCAGON INJ 1MG VIAL SC PRN (13:45)
[2020-03-26] MEDS ORDERED: ACETAMINOPHEN 325 MG TAB PO PRN (14:00)
[2020-03-26 16:30] VITALS: BP 142/65
[2020-03-26] MEDS: ASPIRIN 81 MG ENTERIC TAB PO SCH (17:17)
[2020-03-26] MEDS: ENOXAPARIN 40MG/0.4ML SYRINGE (J1650 PER 10MG) SC SCH (17:17)
[2020-03-26] MEDS: GABAPENTIN 300 MG CAP PO SCH ×2 (17:18→21:09)
[2020-03-26] MEDS: FINASTERIDE 5 MG TAB PO SCH (17:18)
[2020-03-26] MEDS: oxyBUTYnin *DITROPAN XL* 5 MG TABCR PO SCH (17:18)
[2020-03-26] MEDS: HumaLOG INSULIN (NovoLOG) PER UNIT SC SCH (17:27)
[2020-03-26] MEDS: TERAZOSIN 5 MG CAP PO SCH (17:29)
--- NOTE | 2020-03-26 17:59 | HPE ---
HISTORY AND PHYSICAL DATE OF ADMISSION: 03/26/2020 PRIMARY CARE PROVIDER: Gloria Frias PA-C, [place] [facility]; biomass plant technician Tomasz Brown DPM. HISTORY OF PRESENT ILLNESS: Soniya Valdez is a 75-year-old being admitted with warmth, redness, and swelling of his right lateral malleolus and some soft tissue inferior to this. Question cellulitis versus gout (I favor gout). The patient has already been seen by Dr. Brown who also thinks this is gout and started him on prednisone. PAST MEDICAL HISTORY: The patient has a history of gout and had a recent episode in his right first MTP joint, treated by Dr. Brown with cholchicine. That joint was aspirated and that is the only other gout attack that the patient can remember. His more recent history shows COVID infection. He was hospitalized at [facility] for one day in February. His other past medical history shows type 2 diabetes, COPD, chronic anemia, hypertensive heart disease, hypothyroidism, BPH, history of colon cancer status post partial colectomy with chemotherapy, chemotherapy-induced neuropathy, vitamin D deficiency, and remote smoking history. ALLERGIES: SPINAL EPIDURAL caused memory loss. MEDICATIONS: - finasteride 5 mg daily - terazosin 10 mg daily - Synthroid 75 mcg daily - gabapentin 600 mg b.i.d. - Januvia 25 mg daily - Tylenol as needed - Albuterol as needed - aspirin 81 mg daily - Oxybutynin ER 15 mg daily PAST SURGICAL HISTORY: 1. Cataract extraction. 2. Laparoscopic hemicolectomy 06/2013. 3. Some type of cystoscopy with hernia repair 03/2014. 4. Colonoscopy 2015 and 2018. 5. TRUS biopsy 01/2016. FAMILY HISTORY: Father of cancer in his 40s. Mother had Alzheimer's in her 80s. Brother had colon cancer. Sister had memory loss. SOCIAL HISTORY: Quit smoking over 10 years ago. No alcohol intake. Retired from [employer]. from his . He walks for exercise. REVIEW OF SYSTEMS: No fever, chills, night sweats, chest pain, shortness of breath, palpitations, falls, or injury. PHYSICAL EXAMINATION: VITAL SIGNS: Per flow sheet. GENERAL APPEARANCE: Alert and conversant, in no distress. HEENT: Unremarkable. LUNGS: Clear. HEART: Without murmur. ABDOMEN: Soft and nontender with no masses. EXTREMITIES: No clubbing, cyanosis, or edema. He has erythema of the right foot below the lateral malleolus extending into the forefoot. The erythema is quite mild almost imperceptible. It is tender to palpate in this area. Tenderness is out of proportion to palpation. Hurts with any kind of movement even putting a blanket over that area. LABORATORY DATA: CBC unremarkable. Chem profile unremarkable. X-rays unremarkable. Uric acid 3.2. IMPRESSION/PLAN: 1. Suspected gout, right ankle. Dr. Brown has sees him and concurs with the opinion and already started him on prednisone 40 mg daily. If the ankle is better, will discharge him tomorrow. He was started on antibiotic therapy with ceftaroline prior to admission, but we will discontinue this. 2. Diabetes. Hold his oral agent for now. Sliding scale insulin coverage while on the steroids. 3. BPH. Continue terazosin and finasteride 5 mg daily. 4. Hypothyroidism. Continue his levothyroxine 75 mcg daily. Note to outpatient provider: Would recommend starting allopurinol for prophylaxis of gout after satisfactory interval with recovery from this attack.
--- NOTE | 2020-03-26 19:21 | CR ---
CONSULTATION DATE: 03/26/2020 REASON FOR CONSULTATION: Right foot pain. HISTORY OF PRESENT ILLNESS: Noe Valdez is a 75-year-old male who was admitted in the ER for worsening right foot pain. He states it has been present about four days. He denies any injury. He states it is very sore to walk on. He had similar pain about a month ago treated by myself in the office near his second toe. He was treated initially with Colcrys and then with steroid injection with ultimate improvement. He states the pain feels similar. PAST MEDICAL HISTORY: Significant for diabetes, BPH, chronic obstructive pulmonary disease, emphysema, colon cancer, and history of COVID-19. PAST SURGICAL HISTORY: Left hemicolectomy, right cataract. SOCIAL HISTORY: Denies alcohol. Denies tobacco use. FAMILY HISTORY: Noncontributory. ALLERGIES: No known drug allergies. REVIEW OF SYSTEMS: He denies nausea or vomiting, fevers or chills. PHYSICAL EXAMINATION: VITAL SIGNS: Vitals are reviewed. T-max is 99. LOWER EXTREMITY EXAMINATION: Pedal pulses are palpable. There is pain and erythema to the right lateral foot. There is not significant edema. There is some discomfort with range of motion. LABS: White blood cell count is 10. ESR is 83. Uric acid is 8.2. CRP 19.7. Blood cultures are pending. IMAGING STUDIES: Negative for fracture or for soft tissue gas. ASSESSMENT: A 75-year-old diabetic male with gout. PLAN: This does not appear to be infectious. There is no ulceration and no extending erythema and the tenderness is more severe than is typical of a cellulitis. I have no clinical suspicion for septic arthritis. His uric acid is positive. He should improve with steroids. He had been given one dose in the ER, 40 mg of Prednisone. We will plan to order a second dose for tomorrow morning and monitor his improvement. If he is doing better, he could be discharged on oral steroids. If he does not improve, he may improve with a steroid injection which I can perform after discharge. He likely should be placed on a preventative gout medication such as Allopurinol.
[2020-03-26] MEDS ORDERED: HumaLOG INSULIN (NovoLOG) PER UNIT SC SCH (21:00)
[2020-03-26] MEDS ORDERED: CEFTAROLINE FOSAMIL 400 MG in D5W MINI-BAG PLUS 50 ML IV SCH (21:00)
[2020-03-26 22:00] VITALS: BP 135/65
[2020-03-27 06:00] VITALS: BP 139/64
[2020-03-27] MEDS ORDERED: LEVOTHYROXINE 75MCG TABLET (0.075MG) PO SCH (06:00)
[2020-03-27] MEDS ORDERED: predniSONE 20 MG TAB PO ONE (06:00)
--- NOTE | 2020-03-27 06:16 | ECGEPIP ---
[facility] - ED Test Date: 2020-03-26 Pat Name: [place] BRENNAN Department: Room: - Gender: Male Brim Edge Trimmer: CITLALY : 1945 Requested By: Michelle Rider Order Number: [id number] Reading MD: Michelle Rider Measurements Intervals [place] Rate: 78 P: 57 NE: 159 QRS: -13 QRSD: 97 T: 54 QT: 374 QTc: 429 Interpretive Statements SINUS RHYTHM WITH OCCASIONAL SUPRAVENTRICULAR PREMATURE COMPLEXES LEFTWARD AXIS NONSPECIFIC ST ELEVATION 03/07/[address] T WAVE CHANGES Electronically Signed on 03-27-2020 6:16:31 EST by Michelle Rider
[2020-03-27 07:00] LABS: HEMATOCRIT 37.7 % (42.0-52.0); HEMOGLOBIN 11.4 g/dl (13.5-17.5); MEAN CORPUSCULAR HEMOGLOBIN 25.5 pg (27.0-33.0); MEAN CORPUSCULAR HGB CONC 30.2 g/dl (32.0-36.5); MEAN CORPUSCULAR VOLUME 84.3 fl (80.0-96.0); PLATELET COUNT, AUTOMATED 329 10^3/uL (150-450); RED BLOOD COUNT 4.47 10^6/uL (4.30-6.10); WHITE BLOOD COUNT 9.1 10^3/uL (4.0-10.0)
[2020-03-27 07:32] LABS: BLOOD UREA NITROGEN 23 MG/DL (7-18); CALCIUM LEVEL 9.4 MG/DL (8.8-10.2); CARBON DIOXIDE LEVEL 29 MEQ/L (21-32); CHLORIDE LEVEL 100 MEQ/L (98-107); CREATININE FOR GFR 0.82 MG/DL (0.70-1.30); GLOMERULAR FILTRATION RATE > 60.0 (>42); GLUCOSE, FASTING 137 MG/DL (70-100); POTASSIUM SERUM 4.7 MEQ/L (3.5-5.1); SODIUM LEVEL 135 MEQ/L (136-145)
[2020-03-27] MEDS: ENOXAPARIN 40MG/0.4ML SYRINGE (J1650 PER 10MG) SC SCH (08:07)
[2020-03-27] MEDS: HumaLOG INSULIN (NovoLOG) PER UNIT SC SCH ×2 (08:08→11:56)
[2020-03-27] MEDS: FINASTERIDE 5 MG TAB PO SCH (08:08)
[2020-03-27 08:09] VITALS: BP 140/61
[2020-03-27] MEDS: ASPIRIN 81 MG ENTERIC TAB PO SCH (08:09)
[2020-03-27] MEDS: GABAPENTIN 300 MG CAP PO SCH (08:09)
[2020-03-27] MEDS: TERAZOSIN 5 MG CAP PO SCH (08:09)
[2020-03-27] MEDS: oxyBUTYnin *DITROPAN XL* 5 MG TABCR PO SCH (08:15)
[2020-03-27] MEDS ORDERED: PRED20TA PO (10:08)
--- NOTE | 2020-03-27 10:26 | DSES ---
DISCHARGE SUMMARY DATE OF ADMISSION: 03/26/2020 DATE OF DISCHARGE: 03/27/2020 PRINCIPAL DIAGNOSIS: Gout attack, right ankle. HISTORY: The patient was admitted to observation bed with a swollen right ankle. There was some concern about cellulitis. HOSPITAL COURSE: He was clinically felt to have gout. He was seen by podiatry, Dr. Brown, and he agreed with the diagnosis. He was given prednisone and the redness, warmth, and tenderness resolved. Today physical therapy passes him to go home. SIGNIFICANT LABORATORY DATA: Sodium 135, potassium 4.7, BUN 23, creatinine 0.8, glucose 137. Uric acid 8.2. White count 9.1, hemoglobin 11.4, platelets 329,000. DISCHARGE DISPOSITION: The patient is discharged home in improved and stable condition. He will follow up with his primary care provider, Gloria Frias PA-C, as an outpatient. I sent a prescription for a two-wheeled walker and he should have outpatient physical therapy. DISCHARGE MEDICATIONS: Will continue to be - Tylenol as needed - Albuterol 2 puffs q. 4 hours p.r.n. - aspirin 81 mg daily - finasteride 5 mg daily - gabapentin 600 mg t.i.d. - levothyroxine 75 mcg daily - Oxybutynin ER 15 mg daily - Januvia 25 mg daily - terazosin 10 mg daily NEW DISCHARGE MEDICATION: - prednisone 20 mg b.i.d. for 5 days He should be started on allopurinol as an outpatient once his acute gouty attack has resolved. Starting allopurinol too proximate to an acute gouty exacerbate the gout, so we need to wait until this settles down before starting this up again.
== END 2020-03-27 15:01 | disposition home or self-care (01) ==
LOC: M ED 10:41 → M ED INP 13:44 → INTOOBSV 13:44 → ENRESERV 16:08 → M MSPAV 16:28
PROVIDERS: ADMIT Family Medicine; ATTEND Family Medicine
DX: M10.9 Gout, unspecified (principal); E11.9 Type 2 diabetes mellitus without complications; J44.9 Chronic obstructive pulmonary disease, unspecified; D64.9 Anemia, unspecified; I11.9 Hypertensive heart disease without heart failure; E03.9 Hypothyroidism, unspecified; N40.0 Benign prostatic hyperplasia without lower urinary tract symptoms; E55.9 Vitamin D deficiency, unspecified; Z79.82 Long term (current) use of aspirin; Z79.899 Other long term (current) drug therapy; Z87.891 Personal history of nicotine dependence; Z85.038 Personal history of other malignant neoplasm of large intestine
CPT/HCPCS: 36415; 71045; 73610; 73630; 80048; 80053; 84550; 85025; 85027; 85652; 86140; 87040; 93005; 96365; 96372; 97161; 99285; G0378; J1650

== ENCOUNTER 2020-04-08 14:58 | Emergency (ER) | payer MEDICARE, MEDICAID ==
[~2020-04-08] VITALS: Ht 167.6 cm; Wt 61.4 kg
[~2020-04-08 14:58] MED LIST changes: +PRED20TA PO; +[UNRECOGNIZED DRUG - CODE] PO; +pt comment
--- OUTSIDE RECORDS SUMMARY | 2020-04-08 15:07 | CCD ---
Author Author [facility] Organization [facility] Address Unknown Phone Unavailable Care Team Providers Care Plastic Roller Name Role Phone True [place] Unavailable PROBLEMS Type Condition ICD9-CM Code [id number] Code Onset Dates Condition S tatus SNOMED Code Notes Problem Elevated PSA R97.2 Active 863154516 Problem Normocytic anemia D64.9 Active 693831442 Problem Essential hypertension I10 Active 92516343 Problem Chronic prostatitis N41.1 Active 71873221 Problem Drug-induced polyneuropathy G62.0 Active 7070 68604 Problem Vitamin D deficiency E55.9 Active 39576391 Problem Depression with anxiety F41.8 Active 94758693 6 Problem Hypothyroidism (acquired) E03.9 Active 673299 002 Problem PSA elevation R97.20 Active 036867730 Problem Slow transit constipation K59.01 Active 720557 07 Problem Irritable bowel syndrome with constipation and diarrhea K58.2 Active 75912663 Problem Nocturia R35.1 Active 341790339 Problem Acquired hypothyroidism E03.9 Active 86223303 2 Problem Gouty arthritis of right ankle M10.9 Active 3 85284567207746 Problem Irritable bowel syndrome with diarrhea K58.0 A ctive 969291693 Problem Benign prostatic hyperplasia without lower urina ry tract symptoms N40.0 Active 247399297 Problem Type 2 diabetes mellitus wit hout complication, without long-term current use of insulin E11.9 Active 038864097 Problem Elevated PSA R97.20 Active 989223929 Problem Lower urinary tract symptoms due to benign prost atic hyperplasia N40.1 Active 63523149167740 ALLERGIES Allergen (clinical drug ingredient) Drug/Non Drug Allergy do cumented on EMR Reaction Allergy Type Onset Date Status medication for a spinal epidural memory loss Non Drug Shawn rgy Active ENCOUNTERS from 1945 to 2020-03-28 Encounter Location Date Provider Diagnosis [facility] [address] [address] [place] [address] Mar, Dmitry [place] Gouty arthritis of right ankle M10.9 IMMUNIZATIONS Vaccine Route Administration Date Status Pneumococcal Adult 0.5mL (Pneumovax 23) IM Intramuscular August Administered Influenza (18 yrs & older) Flublok IM Intramuscular Jan 18, 2018 Administered Influenza (High Dose 65 & up) Unknown June 13, 2015 Ot hers Pneumococcal 0.5mL (Prevnar 13) IM Intramuscular August 27, 2016 Administered Influenza (6mo & up) Fluzone Unknown Jan 23, 2016 Ref used Influenza (6mo & up) Fluzone Unknown August 15, 2014 Ref used Influenza (6mo & up) Fluzone Unknown June 15, 2014 Ref used Influenza (6mo & up) Fluzone Unknown May 18, 2014 Ref used SOCIAL HISTORY Sex Assigned At : Social History Observation Description Sex Assigned At Unknown Education: Question Answer Notes Level of Education: High School Sexual Hx: Question Answer Notes Had sex in the last 12 months (vaginal, oral, or anal)? No Have you ever had an STD? No Alcohol Screening: Question Answer Notes Did you have a drink containing alcohol in the past year? No Points 0 Interpretation Negative REASON FOR REFERRAL No Information VITAL SIGNS No information MEDICATIONS Medication SIG (Take, Route, Frequency, Duration) Notes Start Da te End Date Status Gabapentin 600 MG 1 tablet Orally Three times a day for 90 days Active Tylenol 325 MG 2 tablets as needed Orally e very 6 hrs as needed for pain or fever x 14 days Jan, Active Aspirin Adult Low Strength 81 MG 1 tablet Orally Once a day for 30 day(s) Feb, Active Ventolin HFA 108 (90 Base) MCG/ACT 1 puff as needed Inhalati on every 4-6 hours Feb, Active Centrum Silver as directed Orally Ac tive Oxybutynin Chloride ER 15 MG 1 tablet Orally Once a day for 30 d ay(s) Feb, Active Januvia 25 MG as directed Orally Daily for 90 day(s) 2018 Active Terazosin HCl 10 MG 1 capsule Orally Once a day for 90 day(s) Active Sebastian Walker - DX=M10.9 _ _ for 90 days Mar, Active Synthroid 75 mcg take one tablet by mouth every day for 90 days Active Finasteride 5 MG 1 tablet Orally Once a day for 90 day(s) May, Active PROCEDURES No Information RESULTS No Results REASON FOR VISIT walker MEDICAL (GENERAL) HISTORY Type Description Date Medical History T2DM, controlled Medical History emphysema with LLL reticular changes on CT 2014; stable LLL lung nodule Medical History Anemia, unspecified Medical History HTN Medical History hypothyroidism Medical History BPH; follows with Dr. Montes Medical History Hx of colon Ca s/p partial c olectomy and chemo; last colo 2018, repeat in 2023 Medical History Chemo induced peripheral neuropathy Medical History Vitamin d deficiency Medical History hx of smoking; AAA screening 2.8x2.5x2.2, 2016; chest CT screening 2013; prevnar 2016 Surgical History cataract removal 04/2009 Surgical History Laparoscopic left-sided colectomy 06/21/13 Surgical History hernia 07/04 Surgical History hernia repeair, left, with cystoscopy Surgical History left eye cataract removal 11/15/14 Surgical History colonoscopy 2015 Surgical History TRUS BX 02/08/16 Hospitalization History Surgicaly related Hospitalization History UTI/bowel Obstruction Goals Section No Information Health Concerns No Information MEDICAL EQUIPMENT No Information MENTAL STATUS No Information FUNCTIONAL STATUS No Information ASSESSMENTS Encounter Date Diagnosis Assessment Notes Treatment Notes Treatm ent Clinical Notes Mar, Gouty arthritis of right ankle (ICD-10 - M10.9) PLAN OF TREATMENT Medication Medication Name Sig Start Date Stop Date Sebastian Walker - DX=M10.9 _ _ for 90 days Mar, Next Appt Details Provider Name:Saritha Ash, 2020-04-05 11:15:00 AM, [address] [place], [address], Provider Name:Gloria Frias, 2020-04-17 10 :30:00 AM, [address] [place], [address], Provider Name:Ashley Blanchard, 2020-08-0 7 10:30:00 AM, [address], [place], [address], Insurance Providers Payer Name Payer Address Payer Phone Insured Name Patient Relati onship to Insured Coverage Start Date Coverage End Date [employer] [facility] CLAIM DIV [address] [facility] [id number] [place] MEDICARE Part A and B [address] [facility] [id number] [place]
--- OUTSIDE RECORDS SUMMARY | 2020-04-08 15:07 | CCD ---
Author Author [facility] Organization [facility] Address Unknown Phone Unavailable Care Team Providers Care Improvement Intern Name Role Phone Shanique Rankin Unavailable PROBLEMS Type Condition ICD9-CM Code [id number] Code Onset Dates Condition S tatus SNOMED Code Notes Problem Elevated PSA R97.2 Active 272700422 Problem Normocytic anemia D64.9 Active 278938655 Problem Essential hypertension I10 Active 30361246 Problem Chronic prostatitis N41.1 Active 25970428 Problem Drug-induced polyneuropathy G62.0 Active 7070 44191 Problem Vitamin D deficiency E55.9 Active 07405798 Problem Depression with anxiety F41.8 Active 96282116 6 Problem Hypothyroidism (acquired) E03.9 Active 102085 002 Problem PSA elevation R97.20 Active 229616244 Problem Slow transit constipation K59.01 Active 276381 07 Problem Irritable bowel syndrome with constipation and diarrhea K58.2 Active 28733914 Problem Nocturia R35.1 Active 514551806 Problem Acquired hypothyroidism E03.9 Active 35804896 2 Problem Gouty arthritis of right ankle M10.9 Active 3 17432864051299 Problem Irritable bowel syndrome with diarrhea K58.0 A ctive 787779708 Problem Benign prostatic hyperplasia without lower urina ry tract symptoms N40.0 Active 383836257 Problem Type 2 diabetes mellitus wit hout complication, without long-term current use of insulin E11.9 Active 110402231 Problem Elevated PSA R97.20 Active 537426875 Problem Lower urinary tract symptoms due to benign prost atic hyperplasia N40.1 Active 16226029423763 ALLERGIES Allergen (clinical drug ingredient) Drug/Non Drug Allergy do cumented on EMR Reaction Allergy Type Onset Date Status medication for a spinal epidural memory loss Non Drug Shawn rgy Active ENCOUNTERS from 1945 to 2020-03-31 Encounter Location Date Provider Diagnosis [facility] [place] [address] [place] [id number] Mar, Shanique Foxchinedu IMMUNIZATIONS Vaccine Route Administration Date Status Influenza (18 yrs & older) Flublok IM Intramuscular Jan 18, 2018 Administered Influenza (High Dose 65 & up) Unknown June 13, 2015 Ot hers Pneumococcal Adult 0.5mL (Pneumovax 23) IM Intramuscular August Administered Pneumococcal 0.5mL (Prevnar 13) IM Intramuscular August [...] Information RESULTS No Results REASON FOR VISIT blood pressure elevated MEDICAL (GENERAL) HISTORY Type Description Date Medical [...] No Information FUNCTIONAL STATUS No Information ASSESSMENTS No Information PLAN OF TREATMENT Medication Medication Name Sig Start Date Stop Date Sebastian Mclain - DX=M10.9 _ _ for 90 days Mar, Next Appt Details Provider Name:Saritha Ash, 2020-04-05 11:15:00 AM, [address] [place], [address], Provider Name:Gloria Frias, 2020-04-17 10 :30:00 AM, [address] [place], [address], Provider Name:Ashley Blanchard, 2020-08- 7 10:30:00 AM, [address], [place], [address], Insurance Providers Payer Name Payer Address Payer Phone Insured Name Patient Relati onship to Insured Coverage Start Date Coverage End Date [facility] HEALTH CARE OPTIONS [facility] CLAIM DIV [address] [facility] [id number] [place] MEDICARE Part A and B [address] [facility] [address] [place] self
--- OUTSIDE RECORDS SUMMARY | 2020-04-08 15:07 | CCD | Continuity of Care Document ---
Author Author Noe HOSKINS DPM Organization Unknown Address [address] [place] [address], [facility] [place] [address] [place] [address] Phone [phone] Care Team Providers Care Buggy Loader Name Role Phone Gloria Frias LUCIUS AUTM [phone] Problems Active Problems Provider Date Osteochondropathy Tomasz Hoskins DPM Onset: 11/02/2015 Hammer toe Tomasz Hoskins DPM Onset: 11/02/2015 Type 2 diabetes mellitus Tomasz Hoskins DPM Onset: 016 Onychomycosis Tomasz Hoskins DPM Onset: 11/20/2019 Resolved Problems Idiopathic gout, right ankle and foot Tomasz Hoskins DPM O nset: 02/17/2020 Resolved: 03/16/2020 Pain in limb Tomasz Hoskins DPM Onset: 02/17/2020 Resolved: 03/16/2020 Social History Type Date Description Comments Sex Unknown ETOH Use Denies alcohol use Tobacco Use Start: Unknown End: Unknown Patient is a former smoker Tobacco Use Start: Unknown Quit 1982 after 15 year history Allergies, Adverse Reactions, Alerts Description No Known Drug Allergies Medications Active Medications SIG Qnty Indications Ordering Provide r Date Colchicine 0.6mg Tablets 1 by mouth every day until pain resolves 14tabs Tomasz Hoskins DPM 05/2019 Vitamin D3 Unknown Levothyroxine Sodium Unknown Omeprazole Unknown Centrum Silver Unknown Multiple Vitamins Unknown 000 Vitamin C Unknown Gabapentin Unknown Oxybutynin Chloride ER Unknown Terazosin HCL Unknown Iron Unknown Medications Administered in Office Medication SIG Qnty Indications Ordering Provider Date Inject Triamcinolone Acetonide 10 ML, ND C 6902-1738-26 Injection Tomasz porter DPM 01/31/2020 Inject Dexamthosone Phosphate 09749-180- 30 Injection Tomasz Hoskins DPM 020 Immunizations Description No Information Available Vital Signs Date Vital Result Comment 11/08/2019 9:49am Height 64 inches 5'4" Weight 136.00 lb BP Systolic 140 mmHg BP Diastolic 80 mmHg Heart Rate 74 /min BMI (Body Mass Index) 23.3 kg/m2 07/29/2018 10:31am Height 64 inches 5'4" Weight 136.00 lb BP Systolic 130 mmHg BP Diastolic 76 mmHg Heart Rate 72 /min BMI (Body Mass Index) 23.3 kg/m2 Results Test Acquired Date Facility Test Result H/L Range Note Laboratory test finding 01/25/2020 [facility] .Uric Acid 7.7 Laboratory test finding 01/24/2020 [facility] Uric Acid 7.7 mg/dL High 3.5-7.2 1 1 note:<nlbl:demographic_chang ed> Procedures Date Code Description Status 01/31/2020 06312 Inject/Drain Joint/Bursa Interme diate Completed Medical Devices Description No Information Available Encounters Type Date Location Provider Dx Diagnosis Office Visit 02/28/2020 10:30a [place] [facility] Tomasz Hoskins DPM B35.1 Tinea unguium L84 Corns and callosities E11.9 Type 2 diabetes mellitus wit hout complications Office Visit 01/31/2020 10:00a [place] [facility] Tomasz Hoskins DPM M10.071 Idiopathic gout, right ankle and foot M79.674 Pain in right toe(s) E11.9 Type 2 diabetes mellitus wit hout complications Office Visit 01/24/2020 10:30a [place] Tomasz Hoskins DPM M10.071 Idiopathic gout, right ankle and foot E11.9 Type 2 diabetes mellitus wit hout complications Office Visit 11/08/2019 9:45a [place] Tomasz Hoskins DPM M20.40 Other hammer toe(s) (acquired), unspecified foot B35.1 Tinea unguium E11.9 Type 2 diabetes mellitus wit hout complications Assessments Date Code Description Provider 03/26/2020 L03.115 Cellulitis of right lower limb A lanre Hoskins, DP 03/26/2020 M10.071 Idiopathic gout, right ankle and foot Tomasz Hoskins, DP 03/26/2020 E11.42 Type 2 diabetes mellitus with di abetic polyneuropathy Tomasz Hoskins, DP 02/28/2020 B35.1 Tinea unguium Tomasz Hoskins, DP 02/28/2020 L84 Corns and callosities Tomasz Hoskins, DP 02/28/2020 E11.9 Type 2 diabetes mellitus without complications Tomasz Hoskins, [facility] 01/31/2020 M10.071 Idiopathic gout, right ankle and foot Tomasz Hoskins, [facility] 01/31/2020 M79.674 Pain in right toe(s) Tomasz payne, [facility] 01/31/2020 E11.9 Type 2 diabetes mellitus without complications Tomasz Hoskins, [facility] 01/24/2020 M10.071 Idiopathic gout, right ankle and foot Tomasz Hoskins, [place] 01/24/2020 E11.9 Type 2 diabetes mellitus without complications Tomasz Hoskins, [facility] 11/08/2019 M20.40 Other hammer toe(s) (acquired), unspecified foot Tomasz Hoskins, [facility] 11/08/2019 B35.1 Tinea unguium Tomasz Hoskins, [facility] 11/08/2019 E11.9 Type 2 diabetes mellitus without complications Tomasz Hoskins DPM Plan of Treatment Future Appointment(s):* 05/08/2020 10:30 am - Tomasz Hoskins DPM at [facility] * 11/06/2020 10:45 am - Tomasz Hoskins DPM at [facility] Functional Status Description No Information Available Mental Status Description No Information Available Referrals Description No Information Available
--- OUTSIDE RECORDS SUMMARY | 2020-04-08 15:07 | CCD | Continuity of Care Document ---
Author Author Noe HOSKINS DPM Organization Unknown Address [address] [place] [address], [facility] [address] [place] [address] Phone [phone] Care Team Providers Care Film And Video Graphics Designer Name Role Phone Gloria Frias LUCIUS AUTM [phone] Problems Active Problems Provider Date Osteochondropathy Tomasz [...] Inject Triamcinolone Acetonide 10 ML, ND C 6706-5468-16 Injection Tomasz porter DPM 01/31/2020 Inject Dexamthosone Phosphate 64387-048- 30 Injection Tomasz Hoskins DPM 020 Immunizations [...] .Uric Acid 7.7 Laboratory test finding 01/24/2020 [facility] Uric Acid 7.7 mg/dL High 3.5-7.2 1 1 note:<nlbl:demographic_chang ed> Procedures Date Code Description Status 01/31/2020 49768 Inject/Drain Joint/Bursa Interme diate Completed Medical Devices Description No Information Available Encounters Type Date Location Provider Dx Diagnosis Office Visit 02/28/2020 10:30a [facility] Tomasz Hoskins DPM B35.1 Tinea unguium L84 Corns and callosities E11.9 Type 2 diabetes mellitus wit hout complications Office Visit 01/31/2020 10:00a [facility] Tomasz Hoskins DPM M10.071 Idiopathic gout, right ankle and foot M79.674 Pain in right toe(s) E11.9 Type 2 diabetes mellitus wit hout complications Office Visit 01/24/2020 10:30a [facility] Tomasz Hoskins DPM M10.071 Idiopathic gout, right ankle and foot E11.9 Type 2 diabetes mellitus wit hout complications Office Visit 11/08/2019 9:45a [facility] Tomasz Hoskins DPM M20.40 Other hammer [...] gout, right ankle and foot Tomasz Hoskins, [facility] 01/31/2020 M79.674 Pain in right toe(s) Tomasz payne, [facility] 01/31/2020 E11.9 Type 2 diabetes mellitus [...] 10:30 am - Tomasz Hoskins DPM at [facility] * 11/06/2020 10:45 am - Tomasz Hoskins DPM at [facility] Functional Status Description No Information Available Mental Status Description No Information Available Referrals Description No Information Available
--- OUTSIDE RECORDS SUMMARY | 2020-04-08 15:07 | CCD ---
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 Active 7070 80961 Problem Vitamin D deficiency E55.9 Active 68400540 Problem Depression with anxiety F41.8 Active 24884487 6 Problem Hypothyroidism (acquired) E03.9 Active 467625 002 Problem PSA elevation R97.20 Active 980636233 Problem Slow transit constipation K59.01 Active 695748 07 Problem Irritable bowel syndrome with constipation and diarrhea K58.2 Active 90223688 Problem Nocturia R35.1 Active 820744613 Problem Acquired hypothyroidism E03.9 Active 13878575 2 Problem Gouty arthritis of right ankle M10.9 Active 3 59365186424035 Problem Irritable bowel syndrome with diarrhea K58.0 A ctive 474370715 Problem Benign prostatic hyperplasia without lower urina ry tract symptoms N40.0 Active 385130314 Problem Type 2 diabetes mellitus wit hout complication, without long-term current use of insulin E11.9 Active 776470368 Problem Elevated PSA R97.20 Active 279276571 Problem Lower urinary tract symptoms due to benign prost atic hyperplasia N40.1 Active 08550664914957 ALLERGIES Allergen (clinical drug ingredient) Drug/Non Drug Allergy do cumented on EMR Reaction Allergy Type Onset Date Status medication for a spinal epidural memory loss Non Drug Shawn rgy Active ENCOUNTERS from 1945 to 2020-03-28 Encounter Location Date Provider Diagnosis [facility] [place] [address] [place] [address] Mar, Reg cheri Stormyjosesito Gouty arthritis of right ankle M10.9 IMMUNIZATIONS [...] Provider Name:Saritha Ash, 2020-04-05 11:15:00 AM, [address] [place], [address], Provider Name:Gloria Frias, 2020-04-17 10 :30:00 AM, [address] [place], [address], Provider Name:Ashley Blanchard, 2020-08-0 7 10:30:00 AM, [address], [place], [address], Insurance Providers Payer Name Payer Address Payer Phone Insured Name Patient Relati onship to Insured Coverage Start Date Coverage End Date MEDICARE Part A and B [address] [facility] [address] [place] [facility] CLAIM [facility] [address] [facility] [address] [place]
--- OUTSIDE RECORDS SUMMARY | 2020-04-08 15:07 | CCD ---
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 Active 7070 28057 Problem Vitamin D deficiency E55.9 Active 38596391 Problem Depression with anxiety F41.8 Active 30624264 6 Problem Hypothyroidism (acquired) E03.9 Active 819563 002 Problem PSA elevation R97.20 Active 596762834 Problem Slow transit constipation K59.01 Active 028974 07 Problem Irritable bowel syndrome with constipation and diarrhea K58.2 Active 14902260 Problem Nocturia R35.1 Active 533852784 Problem Acquired hypothyroidism E03.9 Active 05838949 2 Problem Gouty arthritis of right ankle M10.9 Active 3 92446143161164 Problem Irritable bowel syndrome with diarrhea K58.0 A ctive 048793320 Problem Benign prostatic hyperplasia without lower urina ry tract symptoms N40.0 Active 293555534 Problem Type 2 diabetes mellitus wit hout complication, without long-term current use of insulin E11.9 Active 405589563 Problem Elevated PSA R97.20 Active 118035999 Problem Lower urinary tract symptoms due to benign prost atic hyperplasia N40.1 Active 72059703961091 ALLERGIES Allergen (clinical drug ingredient) Drug/Non Drug Allergy do cumented on EMR Reaction Allergy Type Onset Date Status medication for a spinal epidural memory loss Non Drug Shawn rgy Active ENCOUNTERS from 1945 to 2020-04-03 Encounter Location Date Provider Diagnosis [facility] [place] [address] [place] [address] Mar, Saritha Ash IMMUNIZATIONS Vaccine Route Administration Date Status Influenza [...] Notes Start Da te End Date Status Oxybutynin Chloride ER 15 MG 1 tablet Orally Once a day for 30 d ay(s) Feb, Active Gabapentin 600 MG 1 tablet Orally Three times a day for 90 days Active Januvia 25 mg 1 tab Orally Daily July, A ctive Terazosin HCl 10 MG 1 capsule Orally Once a day for 90 day(s) Active Roller Walker - DX=M10.9 _ _ for 90 days Mar, Active Colchicine 0.6 MG 1 tablet Orally for 30 day(s) Active Centrum Silver as directed Orally Ac tive Tylenol 325 MG 2 tablets as needed Orally e very 6 hrs as needed for pain or fever x 14 days Jan, Active Synthroid 75 mcg take one tablet by mouth every day for 90 days Active Aspirin Adult Low Strength 81 MG 1 tablet Orally Once a day for 30 day(s) Feb, Active Ventolin HFA 108 (90 Base) MCG/ACT 1 puff as needed Inhalati on every 4-6 hours Feb, Active Finasteride 5 MG 1 tablet Orally Once a day for 90 day(s) May, Active PROCEDURES No Information RESULTS No Results REASON FOR VISIT TCM [facility] D/C 03/27; Cellulitis of the Ankle MEDICAL (GENERAL) HISTORY Type Description Date Medical [...] Treatment Notes Treatm ent Clinical Notes Mar, Other 9:50 am 04/03/20 - Discussion with patient s/p hospitalization for cellulitis. Pt reports he is doing well, stating his ankle is improved and pain has resolved. Pt is aware of hospital f/u in office . Medication reconciliation completed and record updated. Header Boss answered pt's questions to satisfaction and advised pt to contact clinic with any further concerns. Pt verbalized understanding and agreement. Nancy Gallardo RN PLAN OF TREATMENT Next Appt Details Provider Name:Saritha Torres Mihir, 2020-04-05 11:15:00 AM, [address] [place] [address], [address], Provider Name:Gloria Frias, 2020-04-17 10 :30:00 AM, [address] [place], [address], Provider Name:Ashley Blanchard, 06-0 7 10:30:00 AM, [address], [place], [address], Insurance Providers Payer Name Payer Address Payer Phone Insured Name Patient Relati onship to Insured Coverage Start Date Coverage End Date [employer] [place] [employer] [address] [facility] [id number] [place] MED[place] Part A and B [address] [facility] [id number] [place]
--- OUTSIDE RECORDS SUMMARY | 2020-04-08 15:08 | CCD ---
Author Author [facility] Organization [facility] Address Unknown Phone Unavailable Care Team Providers Care Fashion Artist Name Role Phone Keaton HOSKINS DPM Unavailable Unavailable Keaton HOSKINS DPM Unavailable Unavailable Keaton HOSKINS DPM Unavailable Unavailable Keaton HOSKINS DPM Unavailable Unavailable Keaton HOSKINS DPM Unavailable Unavailable Keaton HOSKINS DPM Unavailable Unavailable Keaton HOSKINS DPM Unavailable Unavailable Keaton HOSKINS DPM Unavailable Unavailable Keaton HOSKINS DPM Unavailable Unavailable Keaton HOSKINS DPM Unavailable Unavailable Keaton HOSKINS DPM Unavailable Unavailable Keaton HOSKINS DPM Unavailable Unavailable Keaton HOSKINS DPM Unavailable Unavailable Keaton HOSKINS DPM Unavailable Unavailable Keaton HOSKINS DPM Unavailable Unavailable Keaton HOSKINS DPM Unavailable Unavailable MAJAK, R FIDEL DPM Unavailable Unavailable MAJAK, R FIDEL DPM Unavailable Unavailable MAJAK, R FIDEL DPM Unavailable Unavailable MAJAK, R FIDEL DPM Unavailable Unavailable MAJAK, R FIDEL DPM Unavailable Unavailable MAJAK, R FIDEL DPM Unavailable Unavailable MAJAK, R FIDEL DPM Unavailable Unavailable MAJAK, R FIDEL DPM Unavailable Unavailable MAJAK, R FIDEL DPM Unavailable Unavailable MAJAK, R FIDEL DPM Unavailable Unavailable MAJAK, R FIDEL DPM Unavailable Unavailable MAJAK, R FIDEL DPM Unavailable Unavailable MAJAK, R FIDEL DPM Unavailable Unavailable MAJAK, R FIDEL DPM Unavailable Unavailable Raine Orellana MD Unavailable Unavailable Raine Orellana MD Unavailable Unavailable Raine Orellana MD Unavailable Unavailable Raine Orellana MD Unavailable Unavailable Raine Orellana MD Unavailable Unavailable Raine Orellana MD Unavailable Unavailable Raine Orellana MD Unavailable Unavailable Raine Orellana MD Unavailable Unavailable Raine Orellana MD Unavailable Unavailable Raine Orellana MD Unavailable Unavailable Raine Orellana MD Unavailable Unavailable Raine Orellana MD Unavailable Unavailable Raine Orellana MD Unavailable Unavailable Raine Orellana MD Unavailable Unavailable Raine Orellana MD Unavailable Unavailable Raine Orellana MD Unavailable Unavailable Raine Orellana MD Unavailable Unavailable Raine Orellana MD Unavailable Unavailable Raine Orellana MD Unavailable Unavailable Raine Orellana MD Unavailable Unavailable Raine Orellana MD Unavailable Unavailable Raine Orellana MD Unavailable Unavailable Raine Orellana MD Unavailable Unavailable Raine Orellana MD Unavailable Unavailable Raine Orellana MD Unavailable Unavailable Raine Orellana MD Unavailable Unavailable Raine Orellana MD Unavailable Unavailable Raine Orellana MD Unavailable Unavailable Raine Orellana MD Unavailable Unavailable Raine Orellana MD Unavailable Unavailable Raine Orellana MD Unavailable Unavailable Raine Orellana MD Unavailable Unavailable Raine Orellana MD Unavailable Unavailable Raine Orellana MD Unavailable Unavailable Raine Orellana MD Unavailable Unavailable Raine Orellana MD Unavailable Unavailable Raine Orellana MD Unavailable Unavailable Raine Orellana MD Unavailable Unavailable Raine Orellana MD Unavailable Unavailable Raine Orellana MD Unavailable Unavailable Raine Orellana MD Unavailable Unavailable Raine Orellana MD Unavailable Unavailable Raine Orellana MD Unavailable Unavailable Raine Orellana MD Unavailable Unavailable Raine Orellana MD Unavailable Unavailable Raine Orellana MD Unavailable Unavailable Raine Orellana MD Unavailable Unavailable Raine Orellana MD Unavailable Unavailable Raine Orellana MD Unavailable Unavailable Raine Orellana MD Unavailable Unavailable Raine Orellana MD Unavailable Unavailable Orellana, D Lopez MD Unavailable Unavailable Orellana, D Lopez MD Unavailable Unavailable Orellana, D Lopez MD Unavailable Unavailable Orellana, D Lopez MD Unavailable Unavailable Orellana, D Lopez MD Unavailable Unavailable Orellana, D Lopez MD Unavailable Unavailable Orellana, D Lopez MD Unavailable Unavailable Orellana, D Lopez MD Unavailable Unavailable Orellana, D Lopez MD Unavailable Unavailable Orellana, D Lopez MD Unavailable Unavailable Orellana, D Lopez MD Unavailable Unavailable Orellana, D Lopez MD Unavailable Unavailable Orellana, D Lopez MD Unavailable Unavailable Orellana, D Lopez MD Unavailable Unavailable Orellana, D Lopez MD Unavailable Unavailable Orellana, D Lopez MD Unavailable Unavailable Orellana, D Lopez MD Unavailable Unavailable Orellana, D Lopez MD Unavailable Unavailable Orellana, D Lopez MD Unavailable Unavailable Orellana, D Lopez MD Unavailable Unavailable Orellana, D Lopez MD Unavailable Unavailable Orellana, D Lopez MD Unavailable Unavailable Orellana, D Lopez MD Unavailable Unavailable Orellana, D Lopez MD Unavailable Unavailable Orellana, D Lopez MD Unavailable Unavailable Orellana, D Lopez MD Unavailable Unavailable Orellana, D Lopez MD Unavailable Unavailable Orellana, D Lopez MD Unavailable Unavailable Orellana, D Lopez MD Unavailable Unavailable Orellana, D Lopez MD Unavailable Unavailable Orellana, D Lopez MD Unavailable Unavailable Orellana, D Lopez MD Unavailable Unavailable Orellana, D Lopez MD Unavailable Unavailable Orellana, D Lopez MD Unavailable Unavailable Orellana, D Lopez MD Unavailable Unavailable Orellana, D Lopez MD Unavailable Unavailable Orellana, D Lopez MD Unavailable Unavailable Orellana, D Lopez MD Unavailable Unavailable Re-disclosure Warning The records that you are about to access may contain information from federally-assisted alcohol or drug abuse programs. If such information is present, then the following federally mandated warning applies: This information has been disclosed to you from records protected by federal confidentiality rules (42 CFR part 2). The federal rules prohibit you from making any further disclosure of this information unless further disclosure is expressly permitted by the written consent of the person to whom it pertains or as otherwise permitted by 42 CFR part 2. A general authorization for the release of medical or other information is NOT sufficient for this purpose. The Federal rules restrict any use of the information to criminally investigate or prosecute any alcohol or drug abuse patient.The records that you are about to access may contain highly sensitive health information, the redisclosure of which is protected by Article 27-F of the [facility] Public Health law. If you continue you may have access to information: Regarding HIV / AIDS; Provided by facilities licensed or operated by the [facility] Office of Mental Health; or Provided by the [facility] Office for People With Developmental Disabilities. If such information is present, then the following [place] State mandated warning applies: This information has been disclosed to you from confidential records which are protected by state law. State law prohibits you from making any further disclosure of this information without the specific written consent of the person to whom it pertains, or as otherwise permitted by law. Any unauthorized further disclosure in violation of state law may result in a fine or senior living sentence or both. A general authorization for the release of medical or other information is NOT sufficient authorization for further disc losure. 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 Active eCW1 ([facility]) Family History Family Member Name Family Member Gender Family Member Status Date o f Status Description Data Source(s) Unknown Female Problem MEDENT ([facility] Unknown Unknown Problem [facility] Unknown Unknown Problem MEDENT ([facility], [facility]) Unknown Unknown Problem MEDENT ([facility], [facility]) brother, Unknown Female Problem MEDENT ([facility] ) Encounters Encounter Providers Location Date Indications Data Source(s ) Unknown [address] [facility] [place] [address] 03/28/2020 12:00:00 AM EST eCW1 ([facility]) Unknown [address] [facility] [place] [address] 03/28/2020 12:00:00 AM EST eCW1 ([facility]) Unknown [address] [facility] [place] [address] 03/27/2020 12:00:00 AM EST eCW1 ([facility]) Unknown [address] [facility] [place] [address] 03/27/2020 12:00:00 AM EST eCW1 ([facility]) Unknown [address] [facility] [place] [address] 03/14/2020 12:00:00 AM EST eCW1 ([facility]) Unknown [address] [facility] [address] 03/09/2020 12:00:00 AM EST eCW1 ([facility]) Unknown [address] [facility] [address] 03/09/2020 12:00:00 AM EST eCW1 ([facility] Outpatient Attender: FIDEL HOSKINS [facility] Office 10/2019 09:30:00 AM EST MEDENT ([facility] ([facility]) Transition of Care Visit [address] [place] [address] 02/27/2020 12:00:00 AM EST eCW1 ([facility]) Unknown [address] [facility] [address] 02/20/2020 12:00:00 AM EST eCW1 ([facility]) Unknown [address] [facility] [address] 02/09/2020 12:00:00 AM EST eCW1 ([facility]) Unknown [address] [facility] [address] 02/02/2020 12:00:00 AM EST [facility] Out[facility] Attender: FIDEL HOSKINS [facility] Office 01/21 09:00:00 AM EST MEDENT ([facility] Unknown [address] [facility] [id number] 01/27/2020 12:00:00 AM EST eCW1 ([facility]) Outpatient Attender: FIDEL HOSKINS [facility] Office 05/2019 09:30:00 AM EST MEDENT ([facility] Unknown [address] [facility] [address] 01/16/2020 12:00:00 AM EDT [facility]CW[facility] Unknown [address] [facility] [address] 12/21/2019 12:00:00 AM EDT eCW1 ([facility]) Outpatient Attender: FIDEL HOSKINS [facility] Office 10/21 09:45:00 AM EDT MEDENT ([facility] Office Visit, Est Pt., Level 3 [address] [place] [address] 10/11/2019 12:00:00 AM EDT eCW1 ([facility]) Outpatient Attender: Lopez Orellana MD 08/30/2019 07:51:[address] [facility] [address] [place] [address], [place] [address] 08/26/2019 12:00:00 AM EDT eCW1 ([facility]) [address] [place] [address] 06/23/2019 12:00:00 AM EDT eCW1 ([facility]) [address], [place] [address] 04/12/2019 12:00:00 AM EST eCW1 ([facility]) [address] [place] [address] 03/24/2019 12:00:00 AM EST eCW1 ([facility]) [address] [place] [address] 03/17/2019 12:00:00 AM EST eCW1 ([facility]) Immunizations Vaccine Date Status Description Data Source(s) INFLUENZA VIRUS VACCINE QUADRIVAL SPLIT 2019-(65 YR UP)/PF 12/18/2019 12:00:00 AM EDT completed [facility] Medications Medication Brand Name Start Date Product Form Dose Route Admi nistrative Instructions Pharmacy Instructions Status Indications Reaction Description Data Source(s) 0.6 mg 04/05/2020 12:00:00 AM EST tablet 14 TAKE ONE TABLET BY MOUTH EVERY DAY UNTIL PAIN RESOLVES TAKE ONE TABLET BY MOUTH EVERY DAY UNTIL PAIN RESOLVES SOLD: 04/05/2020 [facility] 20 mg 03/27/2020 12:00:00 AM EST tablet 10 TAKE ONE TABLET BY MOUTH TWICE A DAY TAKE ONE TABLET BY MOUTH TWICE A DAY SOLD: 03/27/2020 [facility] Roller Walker - Roller Walker - 03/27/2020 12:00:00 AM EST active Roller Walker - eCW1 ([facility]) Roller Walker - Roller Walker - 03/27/2020 12:00:00 AM EST active Roller Walker - eCW1 ([facility]) Roller Walker - Roller Walker - 03/27/2020 12:00:00 AM EST active Roller Walker - eCW1 ([facility]) Roller Walker - Roller Walker - 03/27/2020 12:00:00 AM EST active Roller Walker - eCW1 ([facility]) 0.6 mg 03/26/2020 12:00:00 AM EST tablet 14 TAKE ONE TABLET BY MOUTH EVERY DAY UNTIL PAIN RESOLVES TAKE ONE TABLET BY MOUTH EVERY DAY UNTIL PAIN RESOLVES SOLD: 03/26/2020 [facility] Aspirin 81 MG Delayed Release Oral Tablet Aspirin Adul t Low Strength 81 MG Aspirin Adult Low Strength 81 MG 03/08/2020 12:00:00 AM EST 1.0 {tabl et} active Aspirin Adult Low Strength 8 1 MG eCW1 ([facility]) 24 HR Oxybutynin chloride 15 MG Extended Release Oral Tablet Oxybutynin Chloride ER 15 MG Oxybutynin Chloride ER 15 MG 03/08/2020 12:00:00 AM EST 1.0 {tablet} active Oxybutynin Chloride ER 15 MG eCW1 ([facility]) Aspirin 81 MG Delayed Release Oral Tablet Aspirin Adul t Low Strength 81 MG Aspirin Adult Low Strength 81 MG 03/08/2020 12:00:00 AM EST 1.0 {tabl et} active Aspirin Adult Low Strength 8 1 MG eCW1 ([facility]) 24 HR Oxybutynin chloride 15 MG Extended Release Oral Tablet Oxybutynin Chloride ER 15 MG Oxybutynin Chloride ER 15 MG 03/08/2020 12:00:00 AM EST 1.0 {tablet} active Oxybutynin Chloride ER 15 MG eCW1 ([facility]) 24 HR Oxybutynin chloride 15 MG Extended Release Oral Tablet Oxybutynin Chloride ER 15 MG Oxybutynin Chloride ER 15 MG 03/08/2020 12:00:00 AM EST 1.0 {tablet} active Oxybutynin Chloride ER 15 MG eCW1 ([facility]) Aspirin 81 MG Delayed Release Oral Tablet Aspirin Adul t Low Strength 81 MG Aspirin Adult Low Strength 81 MG 03/08/2020 12:00:00 AM EST 1.0 {tabl et} active Aspirin Adult Low Strength 8 1 MG eCW1 ([facility]) 200 ACTUAT Albuterol 0.09 MG/ACTUAT [facility] red Dose Inhaler [Ventolin] Ventolin HFA 108 (90 Base) MCG/ACT Ventolin HFA 108 (90 Base) MCG/ACT 03/08/2020 12:00:00 AM EST 1.0 {puff_as_needed} active Rasta tolin HFA 108 (90 Base) MCG/ACT eCW1 ([facility]) 24 HR Oxybutynin chloride 15 MG Extended Release Oral Tablet Oxybutynin Chloride ER 15 MG Oxybutynin Chloride ER 15 MG 03/08/2020 12:00:00 AM EST 1.0 {tablet} active Oxybutynin Chloride ER 1 5 MG eCW1 ([facility]) 200 ACTUAT Albuterol 0.09 MG/ACTUAT Mete red Dose Inhaler [Ventolin] Ventolin HFA 108 (90 Base) MCG/ACT Ventolin HFA 108 (90 Base) MCG/ACT 03/08/2020 12:00:00 AM EST 1.0 {puff_as_needed} active Rasta tolin HFA 108 (90 Base) MCG/ACT eCW1 ([facility]) 24 HR Oxybutynin chloride 15 MG Extended Release Oral Tablet Oxybutynin Chloride ER 15 MG Oxybutynin Chloride ER 15 MG 03/08/2020 12:00:00 AM EST 1.0 {tablet} active Oxybutynin Chloride ER 1 5 MG eCW1 ([facility]) 200 ACTUAT Albuterol 0.09 MG/ACTUAT Mete red Dose Inhaler [Ventolin] Ventolin HFA 108 (90 Base) MCG/ACT Ventolin HFA 108 (90 Base) MCG/ACT 03/08/2020 12:00:00 AM EST 1.0 {puff_as_needed} active Rasta tolin HFA 108 (90 Base) MCG/ACT eCW1 ([facility]) 200 ACTUAT Albuterol 0.09 MG/ACTUAT Mete red Dose Inhaler [Ventolin] Ventolin HFA 108 (90 Base) MCG/ACT Ventolin HFA 108 (90 Base) MCG/ACT 03/08/2020 12:00:00 AM EST 1.0 {puff_as_needed} active Rasta tolin HFA 108 (90 Base) MCG/ACT eCW1 ([facility]) 24 HR Oxybutynin chloride 15 MG Extended Release Oral Tablet Oxybutynin Chloride ER 15 MG Oxybutynin Chloride ER 15 MG 03/08/2020 12:00:00 AM EST 1.0 {tablet} active Oxybutynin Chloride ER 1 5 MG eCW1 ([facility]) Aspirin 81 MG Delayed Release Oral Tablet Aspirin Adul t Low Strength 81 MG Aspirin Adult Low Strength 81 MG 03/08/2020 12:00:00 AM EST 1.0 {tabl et} active Aspirin Adult Low Strength 8 1 MG eCW1 ([facility]) 200 ACTUAT Albuterol 0.09 MG/ACTUAT Mete red Dose Inhaler [Ventolin] Ventolin HFA 108 (90 Base) MCG/ACT Ventolin HFA 108 (90 Base) MCG/ACT 03/08/2020 12:00:00 AM EST 1.0 {puff_as_needed} active Rasta tolin HFA 108 (90 Base) MCG/ACT eCW1 ([facility]) Aspirin 81 MG Delayed Release Oral Tablet Aspirin Adul t Low Strength 81 MG Aspirin Adult Low Strength 81 MG 03/08/2020 12:00:00 AM EST 1.0 {tabl et} active Aspirin Adult Low Strength 8 1 MG eCW1 ([facility]) Aspirin 81 MG Delayed Release Oral Tablet Aspirin Adul t Low Strength 81 MG Aspirin Adult Low Strength 81 MG 03/08/2020 12:00:00 AM EST 1.0 {tabl et} active Aspirin Adult Low Strength 8 1 MG eCW1 ([facility]) 200 ACTUAT Albuterol 0.09 MG/ACTUAT Mete red Dose Inhaler [Ventolin] Ventolin HFA 108 (90 Base) MCG/ACT Ventolin HFA 108 (90 Base) MCG/ACT 03/08/2020 12:00:00 AM EST 1.0 {puff_as_needed} active Rasta tolin HFA 108 (90 Base) MCG/ACT eCW1 ([facility]) 90 mcg/actuation 03/08/2020 12:00:00 AM EST HFA aerosol inha ler 8 INHALE 2 PUFFS BY MOUTH EVERY 4 TO 6 HOURS NEEDED FOR WHEEZING INHALE 2 PUFFS BY MOUTH EVERY 4 TO 6 HOURS NEEDED FOR WHEEZING SOLD: 03/10/2020 [facility] Acetaminophen 325 MG Oral Tablet [Tylenol] Tylenol 325 MG Ty lenol 325 MG 02/20/2020 12:00:00 AM EST 2.0 {tablets_as_needed} active Tylenol 325 MG eCW1 ([facility]) Acetaminophen 325 MG Oral Tablet [Tylenol] Tylenol 325 MG Ty lenol 325 MG 02/20/2020 12:00:00 AM EST 2.0 {tablets_as_needed} active Tylenol 325 MG eCW1 ([facility]) Acetaminophen 325 MG Oral Tablet [Tylenol] Tylenol 325 MG Ty lenol 325 MG 02/20/2020 12:00:00 AM EST 2.0 {tablets_as_needed} active Tylenol 325 MG eCW1 ([facility]) Acetaminophen 325 MG Oral Tablet [Tylenol] Tylenol 325 MG Ty lenol 325 MG 02/20/2020 12:00:00 AM EST 2.0 {tablets_as_needed} active Tylenol 325 MG eCW1 ([facility]) Acetaminophen 325 MG Oral Tablet [Tylenol] Tylenol 325 MG Ty lenol 325 MG 02/20/2020 12:00:00 AM EST 2.0 {tablets_as_needed} active Tylenol 325 MG eCW1 ([facility]) Acetaminophen 325 MG Oral Tablet [Tylenol] Tylenol 325 MG Ty lenol 325 MG 02/20/2020 12:00:00 AM EST 2.0 {tablets_as_needed} active Tylenol 325 MG eCW1 ([facility]) Acetaminophen 325 MG Oral Tablet [Tylenol] Tylenol 325 MG Ty lenol 325 MG 02/20/2020 12:00:00 AM EST 2.0 {tablets_as_needed} active Tylenol 325 MG eCW1 ([facility]) Acetaminophen 325 MG Oral Tablet [Tylenol] Tylenol 325 MG Ty lenol 325 MG 02/20/2020 12:00:00 AM EST 2.0 {tablets_as_needed} active Tylenol 325 MG eCW1 ([facility]) Acetaminophen 325 MG Oral Tablet [Tylenol] Tylenol 325 MG Ty lenol 325 MG 02/20/2020 12:00:00 AM EST 2.0 {tablets_as_needed} active Tylenol 325 MG eCW1 ([facility]) POLYETHYLENE GLYCOL 3350 142 MG/ML Oral Solution Polye thylene Glycol 3350 17 GM Polyethylene Glycol 3350 17 GM 02/20/2020 12:00:00 AM EST 1. 0 {packet_mixed_with_8_ounces_of_fluid} active Polyethylene Glycol 3350 17 GM eCW1 ([facility]) Ciprofloxacin 500 MG Oral Tablet Ciprofloxacin HCl 500 MG Ciprofloxacin HCl 500 MG 02/20/2020 12:00:00 AM EST 1.0 {tablet} activ e Ciprofloxacin HCl 500 MG eCW1 ([facility]) POLYETHYLENE GLYCOL 3350 142 MG/ML Oral Solution Polye thylene Glycol 3350 17 GM Polyethylene Glycol 3350 17 GM 02/20/2020 12:00:00 AM EST 1. 0 {packet_mixed_with_8_ounces_of_fluid} active Polyethylene Glycol 3350 17 GM eCW1 ([facility]) 325 mg 02/18/2020 12:00:00 AM EST tablet 30 TAKE TWO TABLETS BY MOUTH EVERY 6 HOURS NEEDED FOR PAIN OR FEVER TAKE TWO TABLETS BY MOUTH EVERY 6 HOURS NEEDED FOR PAIN OR FEVER SOLD: 02/19/2020 [facility] 500 mg 02/18/2020 12:00:00 AM EST tablet 8 TAKE ONE TABLET BY MOUTH TWICE A DAY TAKE ONE TABLET BY MOUTH TWICE A DAY SOLD: 02/19/2020 [facility] 25 mg 02/10/2020 12:00:00 AM EST tablet 90 TAKE ONE TABLET BY MOUTH EVERY DAY TAKE ONE TABLET BY MOUTH EVERY DAY SOLD: 02/14/2020 [facility] 600 mg 02/03/2020 12:00:00 AM EST tablet 270 TAKE ONE TABLET BY MOUTH THREE TIMES A DAY TAKE ONE TABLET BY MOUTH THREE TIMES A DAY SOLD: 02/06/2020 [facility] Inject Dexamthosone Phosphate 00744-294-32 01/31/2020 12:00:00 A M EST completed MEDENT ([facility] Medication administered onsite Inject Triamcinolone Acetonide 10 ML, [facility] [id number] 01/31/2020 12:00:00 AM EST completed [facility] ([facility] Medication administered onsite Colchicine 0.6 MG Oral Tablet Colchicine 01/24/2020 12:00:00 AM EST ORAL active [facility]ENT ([facility] 75 mcg 01/17/2020 12:00:00 AM EDT tablet 90 TAKE ONE TABLET BY MOUTH EVERY DAY TAKE ONE TABLET BY MOUTH EVERY DAY SOLD: 01/19/2020 [facility] 10 mg 12/23/2019 12:00:00 AM EDT capsule 90 TAKE ONE CAPSULE BY MOUTH EVERY DAY TAKE ONE CAPSULE BY MOUTH EVERY DAY SOLD: 12/23/2019 [facility] 10 mg 12/23/2019 12:00:00 AM EDT capsule 90 TAKE ONE CAPSULE BY MOUTH EVERY DAY TAKE ONE CAPSULE BY MOUTH EVERY DAY SOLD: 04/03/2020 [facility] 15 mg 12/16/2019 12:00:00 AM EDT tablet extended release 24hr 90 TAKE ONE TABLET BY MOUTH EVERY DAY TAKE ONE TABLET BY MOUTH EVERY DAY SOLD: 12/17/2019 [facility] 15 mg 12/16/2019 12:00:00 AM EDT tablet extended release 24hr 85 TAKE ONE TABLET BY MOUTH EVERY DAY TAKE ONE TABLET BY MOUTH EVERY DAY SOLD: 04/03/2020 [facility] 15 mg 12/16/2019 12:00:00 AM EDT tablet extended release 24hr 5 TAKE ONE TABLET BY MOUTH EVERY DAY TAKE ONE TABLET BY MOUTH EVERY DAY SOLD: 03/29/2020 [facility] 5 mg 11/17/2019 12:00:00 AM EDT tablet 30 TAKE ONE TABLET BY MOUTH EVERY DAY TAKE ONE TABLET BY MOUTH EVERY DAY SOLD: 11/18/2019 [facility] 75 mcg 10/22/2019 12:00:00 AM EDT tablet 90 TAKE ONE TABLET BY MOUTH EVERY DAY TAKE ONE TABLET BY MOUTH EVERY DAY SOLD: 10/24/2019 [facility] Paroxetine Hydrochloride 10 MG Oral Tablet PAROXETINE HCL 10/13/2019 12:00:00 AM EDT tablet 30 TAKE ONE TABLET BY MOUTH SANDRA RY MORNING TAKE ONE TABLET BY MOUTH EVERY MORNING SOLD: 10/15/2019 [facility] Paroxetine HCl 10 MG Paroxetine HCl 10 MG 10/12/2019 12:00:00 AM ED T 1.0 {tablet_in_the_morning} active Paroxeti ne HCl 10 MG eCW1 ([facility]) Paroxetine HCl 10 MG Paroxetine HCl 10 MG 10/12/2019 12:00:00 AM ED T 1.0 {tablet_in_the_morning} active Paroxeti ne HCl 10 MG eCW1 ([facility]) Paroxetine HCl 10 MG Paroxetine HCl 10 MG 10/12/2019 12:00:00 AM ED T 1.0 {tablet_in_the_morning} active Paroxeti ne HCl 10 MG eCW1 ([facility]) Paroxetine HCl 10 MG Paroxetine HCl 10 MG 10/12/2019 12:00:00 AM ED T 1.0 {tablet_in_the_morning} active Paroxeti ne HCl 10 MG eCW1 ([facility]) Paroxetine HCl 10 MG Paroxetine HCl 10 MG 10/12/2019 12:00:00 AM ED T 1.0 {tablet_in_the_morning} active Paroxeti ne HCl 10 MG eCW1 ([facility]) Paroxetine HCl 10 MG Paroxetine HCl 10 MG 10/12/2019 12:00:00 AM ED T 1.0 {tablet_in_the_morning} active Paroxeti ne HCl 10 MG eCW1 ([facility]) Paroxetine HCl 10 MG Paroxetine HCl 10 MG 10/12/2019 12:00:00 AM ED T 1.0 {tablet_in_the_morning} active Paroxeti ne HCl 10 MG eCW1 ([facility]) Finasteride 5 MG Oral Tablet FINASTERIDE 09/26/2019 12:00:00 AM EDT ta blet 90 TAKE ONE TABLET BY MOUTH EVERY DAY TAKE ONE TABLET BY MOUTH EVERY DAY SOLD: 12/23/2019 [facility] Finasteride 5 MG Oral Tablet FINASTERIDE 09/26/2019 12:00:00 AM EDT ta blet 90 TAKE ONE TABLET BY MOUTH EVERY DAY TAKE ONE TABLET BY MOUTH EVERY DAY SOLD: 03/29/2020 [facility] 5 mg 09/26/2019 12:00:00 AM EDT tablet 90 TAKE ONE TABLET BY MOUTH EVERY DAY TAKE ONE TABLET BY MOUTH EVERY DAY SOLD: 09/27/2019 [facility] 25 mg 05/31/2019 12:00:00 AM EDT tablet 90 TAKE 1 TABLET BY MOUTH ONCE DAILY TAKE 1 TABLET BY MOUTH ONCE DAILY SOLD: 10/24/2019 [facility] 25 mg 05/31/2019 12:00:00 AM EDT tablet 90 TAKE 1 TABLET BY MOUTH ONCE DAILY TAKE 1 TABLET BY MOUTH ONCE DAILY SOLD: 05/31/2019 [facility] 75 mcg 04/12/2019 12:00:00 AM EST tablet 90 TAKE ONE TABLET BY MOUTH EVERY DAY TAKE ONE TABLET BY MOUTH EVERY DAY SOLD: 04/13/2019 [facility] 600 mg 04/12/2019 12:00:00 AM EST tablet 270 TAKE 1 TABLET BY MOUTH THREE TIMES A DAY TAKE 1 TABLET BY MOUTH THREE TIMES A DAY SOLD: 04/13/2019 [facility] 600 mg 04/12/2019 12:00:00 AM EST tablet 270 TAKE 1 TABLET BY MOUTH THREE TIMES A DAY TAKE 1 TABLET BY MOUTH THREE TIMES A DAY SOLD: 09/27/2019 [facility] 75 mcg 04/12/2019 12:00:00 AM EST tablet 90 TAKE ONE TABLET BY MOUTH EVERY DAY TAKE ONE TABLET BY MOUTH EVERY DAY SOLD: 07/26/2019 [facility] 25 mg 03/25/2019 12:00:00 AM EST tablet 90 TAKE ONE TABLET BY MOUTH DAILY DIRECTED TAKE ONE TABLET BY MOUTH DAILY DIRECTED SOLD: 03/26/2019 [facility] 10 mg 12/20/2018 12:00:00 AM EDT capsule 90 TAKE ONE CAPSULE BY MOUTH EVERY DAY TAKE ONE CAPSULE BY MOUTH EVERY DAY SOLD: 06/25/2019 [facility] 10 mg 12/20/2018 12:00:00 AM EDT capsule 90 TAKE ONE CAPSULE BY MOUTH EVERY DAY TAKE ONE CAPSULE BY MOUTH EVERY DAY SOLD: 09/21/2019 [facility] 10 mg 12/20/2018 12:00:00 AM EDT capsule 90 TAKE ONE CAPSULE BY MOUTH EVERY DAY TAKE ONE CAPSULE BY MOUTH EVERY DAY SOLD: 03/26/2019 [facility] 15 mg 12/18/2018 12:00:00 AM EDT tablet extended release 24hr 90 TAKE ONE TABLET BY MOUTH EVERY DAY TAKE ONE TABLET BY MOUTH EVERY DAY SOLD: 09/16/2019 [facility] 15 mg 12/18/2018 12:00:00 AM EDT tablet extended release 24hr 90 TAKE ONE TABLET BY MOUTH EVERY DAY TAKE ONE TABLET BY MOUTH EVERY DAY SOLD: 06/19/2019 [facility] 15 mg 12/18/2018 12:00:00 AM EDT tablet extended release 24hr 90 TAKE ONE TABLET BY MOUTH EVERY DAY TAKE ONE TABLET BY MOUTH EVERY DAY SOLD: 03/23/2019 [facility] 5 mg 09/17/2018 12:00:00 AM EDT tablet 90 TAKE ONE TABLET BY MOUTH ONCE DAILY TAKE ONE TABLET BY MOUTH ONCE DAILY SOLD: 03/30/2019 [facility] 5 mg 09/17/2018 12:00:00 AM EDT tablet 90 TAKE ONE TABLET BY MOUTH ONCE DAILY TAKE ONE TABLET BY MOUTH ONCE DAILY SOLD: 07/04/2019 [facility] 25 mg 08/20/2018 12:00:00 AM EDT tablet 30 TAKE ONE TABLET BY MOUTH EVERY DAY TAKE ONE TABLET BY MOUTH EVERY DAY SOLD: 03/03/2019 [employer] Insurance Providers Payer name Policy type / Coverage type Policy ID Covered alliance party ID Covered alliance party's relationship to vasquez Policy Vasquez Plan Information EMEDNY [id number] SP [id number] MEDICARE [id number] SP [id number] AARP HE[employer] CARE OPTIONS [id number] SP [id number] MEDICARE C [id number] S [id number] MEDICAID S [id number] S [id number] AARP HE[employer] CARE OPTIONS [id number] SP [id number] MEDICARE [id number] SP [id number] [id number] AARP HE[employer] CARE OPTIONS [id number] SP [id number] AARP HE[employer] CARE OPTIONS [id number] SP [id number] AARP HE[employer] CARE OPTIONS [id number] SP [id number] MEDICARE [id number] SP [id number] Medicare Dme Medigap Part B [id number] Self 0 [id number] Aarp Insurance Medigap Part B [id number] 11 Self [id number] Medicare Medicare Primary [id number] Self 06 [id number] Medicare Dme Medigap Part B [id number] Self 0 [id number] Aar Insurance [facility] Part B [id number] 11 Self [id number] Medicare Medicare Primary [id number] Self 06 [id number] ANSI-Commercial [id number] ANSI-Medicare Part B [id number] ANSI-Medicare Part B [id number] ANSI-Medicare Part B [id number] ANSI-Commercial [id number] ANSI-Medicare Part B [id number] ANSI-Medicare Part B [id number] ANSI-Commercial [id number] ANSI-Medicare Part B [id number] ANSI-Commercial [id number] ANSI-Medicare Part B [id number] ANSI-Medicare Part B [id number] ANSI-Medicare Part B [id number] ANSI-Commercial [id number] ANSI-Medicare Part B [id number] ANSI-Commercial [id number] ANSI-Medicare Part B [id number] ANSI-Medicare Part B [id number] ANSI-Medicare Part B [id number] ANSI-Medicare Part B [id number] ANSI-Commercial [id number] Medicare Dme Medigap Part B [id number] Self 0 [id number] Aarp Insurance Medigap Part B [id number] 11 Self [id number] Medicare Medicare Primary [id number] Self 06 [id number] Medicare Dme Medigap Part B [id number] Self 0 [id number] Aarp Insurance Medigap Part B [id number] 11 Self [id number] 11 Medicare Medicare Primary [id number] Self 06 [id number] ANSI-Commercial [id number] ANSI-Medicare Part B [id number] ANSI-Medicare Part B [id number] AAR HE[employer] CARE OPTIONS [id number] SP [id number] [facility] C[facility] OPTIONS [id number] SP [id number] ANSI-Medicare Part B [id number] ANSI-Medicare Part B [id number] ANSI-Commercial [id number] ANSI-Commercial [id number] ANSI-Medicare Part B [id number] ANSI-Medicare Part B [id number] ANSI-Commercial [id number] ANSI-Medicare Part B [id number] ANSI-Medicare Part B [id number] ANSI-Medicare Part B [id number] ANSI-Medicare Part B [id number] ANSI-Commercial [id number] AARP HE[employer] CARE OPTIONS [id number] SP [id number] AARP HE[employer] CARE OPTIONS [id number] SP [id number] AARP O [id number] S [id number] AARP HE[employer] CARE OPTIONS [id number] SP [id number] ANSI-Medicare Part B [id number] ANSI-Medicare Part B [id number] ANSI-Commercial [id number] AARP HE[employer] CARE OPTIONS [id number] SP [id number] AARP HE[employer] CARE OPTIONS [id number] SP [id number] MEDICARE [id number] SP [id number] Medicare Dme Medigap Part B [id number] Self 0 [id number] Aarp Insurance Medigap Part B [id number] 11 Self [id number] 11 Medicare Medicare Primary [id number] Self 06 [id number] MEDICARE [id number] SP [id number] A Aarp [facility] Options Medigap Part B [id number] Self [id number] Medicare [place] Gov[place] Servi Medicare Primary [id number] Self [id number] AARP HE[employer] CARE OPTIONS [id number] SP [id number] MEDICARE [id number] S [id number] A Medicare Dme Medigap Part B [id number] Self 0 [id number] Aarp Insurance Medigap Part B [id number] 11 Self [id number] 11 Medicare Medicare Primary [id number] Self 06 [id number] MEDICARE [id number] SP [id number] A Aarp Insurance Medigap Part B Self Medicare Medicare Primary Self Aarp [facility] Options Medigap Part B Self [place] Primary Self Aarp [facility] Options Medigap Part B Self [place] Gov[place] Medicare Primary Self MEDICARE [id number] SP [id number] [place] Medig[place] Part B Self Todays Options Commercial Self MEDICAID [id number] SP [id number] MEDICARE [id number] SP [id number] A TODAYS OPTIONS [id number] SP [id number] TODAYS OPTIONS/[place] P [id number] S [id number] Problems, Conditions, and Diagnoses Code Display Name Description Problem Type Effective Dates Data Source(s) M10.9 [id number] Gouty arthritis of right ankle Problem 03/27/2020 12:00:00 AM EST eCW1 ([facility]) [id number] Pain in limb Pain in limb Problem 02/17/2020 12:0 0:00 AM EST - 03/16/2020 12:00:00 AM EST [facility] ([facility] Idiopathic gout, right ankle and foot Idiopathic gout, right ankle and foot Problem 02/17/2020 12:00:00 AM EST - 03/16/2020 12:00:00 AM ES T [facility] ([facility] [id number] Onychomycosis Onychomycosis Problem 11/20/2019 12:00:00 AM EDT [facility] ([facility] N40.1 Lower urinary tract symptoms due to ramos gn prostatic hypertrophy Lower urinary tract symptoms due to benign prostatic hyperplasia Problem 08/26/2019 12:00:00 AM EDT eCW1 ([facility]) R35.1 Nocturia Nocturia Problem 08/26/2019 12:00:00 AM ED T eCW1 ([facility]) Surgeries/Procedures Procedure Description Date Indications Data Source(s) ARTHROCENTESIS ASPIR&/INJECTION INTERM JT/BURSA 2019 12:00:00 AM EST [facility] ([facility] Office Visit, Est Pt., Level 3 PC 04/12/2019 12:00:00 AM EST eCW1 ([facility]) Results ID Date Data Source [id number] 03/07/2020 04:59:00 AM EST [facility] Name Value Range Interpretation Code Description Data Chasity rce(s) Supporting Document(s) Respiratory pathogens identified [Type] in Nasopharynx by Probe and target amplification method [facility] This lab was ordered by [facility] a nd reported by [facility]. ID Date Data Source [id number] 01/25/2020 08:15:00 AM EST [facility] ([facility] Name Value Range Interpretation Code Description Data Chasity rce(s) Supporting Document(s) Urate [Mass/volume] in Serum or Plasma 7.7 [facility] ([facility] ID Date Data Source [id number] 01/24/2020 01:18:00 PM EST [facility] ([facility] Name Value Range Interpretation Code Description Data Chasity rce(s) Supporting Document(s) Urate [Mass/volume] in Serum or Plasma 7.7 mg/dL 3.5-7.2 Above hi gh normal [facility] ([facility] <content>note:<nlbl:demographic_changed> </content>
<content></content> Procedure Vital Signs ID Date Data Source UNK Name Value Range Interpretation Code Description Data Source(s) Diastolic blood pressure 52 mm[Hg] 52 mm[Hg] eCW1 ([facility]) Systolic blood pressure 104 mm[Hg] 104 mm[Hg] e CW1 ([facility]) Body temperature 97.1 [degF] 97.1 [degF] eCW1 ( [facility]) Respiratory rate 18 /min 18 /min eCW1 ([facility]) Heart rate 85 /min 85 /min eCW1 ([facility]) Body mass index (BMI) [Ratio] 21.79 kg/m2 21.79 kg/m2 W1 ([facility]) Body height 66 [in_i] 66 [in_i] eCW1 ([facility]) Body weight 135 [lb_av] 135 [lb_av] eCW1 [facility] Body mass index (BMI) [Ratio] 23.3 kg/m2 23.3 k g/m2 [facility] ([facility] Heart rate 74 /min 74 /min [facility] ([facility] Diastolic blood pressure 80 mm[Hg] 80 mm[Hg] [facility] ([facility] Systolic blood pressure 140 mm[Hg] 140 mm[Hg] M EDENT ([facility] Body weight 136.00 [lb_av] 136.00 [lb_av] MEDEN T ([facility] Body height 64 [in_i] 64 [in_i] [facility] ([facility] 5'4" Diastolic blood pressure 72 mm[Hg] 72 mm[Hg] eCW1 ([facility]) Systolic blood pressure 138 mm[Hg] 138 mm[Hg] e CW1 ([facility]) Body temperature 98.1 [degF] 98.1 [degF] eCW1 ( [facility]) Respiratory rate 18 /min 18 /min eCW1 ([facility]) Heart rate 89 /min 89 /min eCW1 ([facility]) Body mass index (BMI) [Ratio] 21.98 kg/m2 21.98 kg/m2 eCW1 ([facility]) Body height 66 [in_i] 66 [in_i] eCW1 ([facility]) Body weight 136.2 [lb_av] 136.2 [lb_av] eCW1 ([facility]) Diastolic blood pressure mm[Hg] eCW1 ([facility]) Systolic blood pressure 120 mm[Hg] 120 mm[Hg] e CW1 ([facility]) Body temperature 97.3 [degF] 97.3 [degF] eCW1 ( [facility]) Respiratory rate 17 /min 17 /min eCW1 ([facility]) Heart rate 61 /min 61 /min eCW1 ([facility]) Body mass index (BMI) [Ratio] 23.72 kg/m2 23.72 kg/m2 eCW1 ([facility]) Body height 66 [in_i] 66 [in_i] eCW1 ([facility]) Body weight 147 [lb_av] 147 [lb_av] eCW1 ([facility]) Diastolic blood pressure 70 mm[Hg] 70 mm[Hg] eCW1 ([facility]) Systolic blood pressure 146 mm[Hg] 146 mm[Hg] e CW1 ([facility]) Body temperature 97.4 [degF] 97.4 [degF] eCW1 ( [facility]) Respiratory rate 18 /min 18 /min eCW1 ([facility]) Heart rate 92 /min 92 /min eCW1 ([facility]) Body mass index (BMI) [Ratio] 23.21 kg/m2 23.21 kg/m2 eCW1 ([facility]) Body height 66 [in_us] 66 [in_us] eCW1 ([facility]) Body weight Measured 143.8 [lb_av] 143.8 [lb_av ] eCW1 ([facility]) Patient Treatment Plan of Care Planned Activity Planned Date Details Description Data Source (s) Sebastian Mclain - 03/27/2020 12:00:00 AM EST eCW1 ([facility]) Sebastian Mclain - 03/27/2020 12:00:00 AM EST eCW1 ([facility]) Sebastian Mclain - 03/27/2020 12:00:00 AM EST eCW1 ([facility]) Paroxetine HCl 10 MG 10/12/2019 12:00:00 AM EDT eCW1 ([facility]) Paroxetine HCl 10 MG 10/12/2019 12:00:00 AM EDT eCW1 ([facility]) Paroxetine HCl 10 MG 10/12/2019 12:00:00 AM EDT eCW1 ([facility]) Paroxetine HCl 10 MG 10/12/2019 12:00:00 AM EDT eCW1 ([facility]) Paroxetine HCl 10 MG 10/12/2019 12:00:00 AM EDT eCW1 ([facility]) Paroxetine HCl 10 MG 10/12/2019 12:00:00 AM EDT eCW1 ([facility])
[2020-04-08] MEDS ORDERED: COLC0.6T47 (15:10)
[2020-04-08] MEDS ORDERED: NS 1,000 ML IV SCH (15:19)
[2020-04-08] MEDS ORDERED: ACETAMINOPHEN TAB 650MG DOSE (2X325MG) PO ONE (15:30)
[2020-04-08] MEDS ORDERED: ALBUTEROL 90 MCG/ACT 8GM HFA INHALER INH ONE (15:30)
[2020-04-08] MEDS: COMBIVENT RESPIMAT 100-20MCG INHALER 4GM INH SCH ×2 (15:37→15:59)
--- OUTSIDE RECORDS SUMMARY | 2020-04-08 16:27 | CCD ---
Author Author [facility] Organization [facility] Address Unknown Phone Unavailable Care Team Providers Care Rodeo Rider Name Role Phone Keaton HOSKINS DPM Unavailable [...] is protected by Article 27-F of the [facility] Public Health law. If you continue you may have access to information: Regarding HIV / AIDS; Provided by facilities licensed or operated by the [facility] Office of Mental Health; or Provided by the [facility] Office for People With Developmental Disabilities. If such information is present, then the following [place] State mandated warning applies: This information has [...] law may result in a fine or penitentiary sentence or both. A general authorization for the release of medical or other information is NOT sufficient authorization for further disc losure. 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 Active eCW1 ([facility]) Family History Family Member Name Family Member Gender Family Member Status Date o f Status Description Data Source(s) Unknown Female Problem MEDENT ([facility] Unknown Unknown Problem [facility] Unknown Unknown Problem MEDENT ([facility], [facility]) Unknown Unknown Problem MEDENT ([facility], [facility]) brother, Unknown Female Problem MEDENT ([facility] ) Encounters Encounter Providers Location Date Indications Data Source(s ) Unknown [address] [facility] [place] [address] 03/28/2020 12:00:00 AM EST eCW1 ([facility]) Unknown [address] [facility] [place] [address] 03/28/2020 12:00:00 AM EST eCW1 ([facility]) Unknown [address] [facility] [place] [address] 03/27/2020 12:00:00 AM EST eCW1 ([facility]) Unknown [address] [facility] [place] [address] 03/27/2020 12:00:00 AM EST eCW1 ([facility]) Unknown [address] [facility] [place] [address] 03/14/2020 12:00:00 AM EST eCW1 ([facility]) Unknown [address] [facility] [address] 03/09/2020 12:00:00 AM EST eCW1 ([facility]) Unknown [address] [facility] [address] 03/09/2020 12:00:00 AM EST eCW1 ([facility] Outpatient Attender: FIDEL HOSKINS [facility] 10/2019 09:30:00 AM EST MEDENT ([facility] ([facility]) Transition of Care Visit [address] [place] [address] 02/27/2020 12:00:00 AM EST eCW1 ([facility]) Unknown [address] [facility] [address] 02/20/2020 12:00:00 AM EST eCW1 ([facility]) Unknown [address] [facility] [address] 02/09/2020 12:00:00 AM EST eCW1 ([facility]) Unknown [address] [facility] [address] 02/02/2020 12:00:00 AM EST [facility] Outpatient Attender: FIDEL HOSKINS [facility] 01/21 09:00:00 AM EST MEDENT ([facility] Unknown [address] [facility] [address] 01/27/2020 12:00:00 AM EST eCW1 ([facility]) Outpatient Attender: FDIEL HOSKINS [facility] 05/2019 09:30:00 AM EST MEDENT ([facility] Unknown [address] [facility] [address] 01/16/2020 12:00:00 AM EDT eCW1 ([facility]) Unknown [address] [facility] [address] 12/21/2019 12:00:00 AM EDT eCW1 ([facility]) Outpatient Attender: FIDEL HOSKINS [facility] 10/21 09:45:00 AM EDT MEDENT ([facility] Office Visit, Est Pt., Level 3 [address] [place] [address] 10/11/2019 12:00:00 AM EDT eCW1 ([facility]) Outpatient Attender: Lopez Orellana MD 08/30/2019 07:51:13 PM EDT [facility] [address] [place] [address], [place] [address] 08/26/2019 12:00:00 AM EDT eCW1 ([facility]) [address] [place] [address] 06/23/2019 12:00:00 AM EDT eCW1 ([facility]) [address], [place] [address] 04/12/2019 12:00:00 AM EST eCW1 ([facility]) [address] [place] [address] 03/24/2019 12:00:00 AM EST eCW1 ([facility]) [address] [place] [address] 03/17/2019 12:00:00 AM EST eCW1 ([facility]) Immunizations Vaccine Date Status Description Data Source(s) [...] AM EST active Roller Walker - eCW1 ([facility]) Roller Walker - Roller Walker - 03/27/2020 12:00:00 AM EST active Roller Walker - eCW1 ([facility]) Roller Walker - Roller Walker - 03/27/2020 12:00:00 AM EST active Roller Walker - eCW1 ([facility]) Roller Walker - Roller Walker - 03/27/2020 12:00:00 AM EST active Roller Walker - eCW1 ([facility]) 0.6 mg 03/26/2020 12:00:00 AM EST tablet [...] Adult Low Strength 8 1 MG eCW1 ([facility]) 24 HR Oxybutynin chloride 15 MG Extended Release Oral Tablet Oxybutynin Chloride ER 15 MG Oxybutynin Chloride ER 15 MG 03/08/2020 12:00:00 AM EST 1.0 {tablet} active Oxybutynin Chloride ER 15 MG eCW1 ([facility]) Aspirin 81 MG Delayed Release Oral Tablet Aspirin Adul t Low Strength 81 MG Aspirin Adult Low Strength 81 MG 03/08/2020 12:00:00 AM EST 1.0 {tabl et} active Aspirin Adult Low Strength 8 1 MG eCW1 ([facility]) 24 HR Oxybutynin chloride 15 MG Extended Release Oral Tablet Oxybutynin Chloride ER 15 MG Oxybutynin Chloride ER 15 MG 03/08/2020 12:00:00 AM EST 1.0 {tablet} active Oxybutynin Chloride ER 15 MG eCW1 ([facility]) 24 HR Oxybutynin chloride 15 MG Extended Release Oral Tablet Oxybutynin Chloride ER 15 MG Oxybutynin Chloride ER 15 MG 03/08/2020 12:00:00 AM EST 1.0 {tablet} active Oxybutynin Chloride ER 15 MG eCW1 ([facility]) Aspirin 81 MG Delayed Release Oral Tablet Aspirin Adul t Low Strength 81 MG Aspirin Adult Low Strength 81 MG 03/08/2020 12:00:00 AM EST 1.0 {tabl et} active Aspirin Adult Low Strength 8 1 MG eCW1 ([facility]) 200 ACTUAT Albuterol 0.09 MG/ACTUAT Mete red Dose Inhaler [Ventolin] Ventolin HFA 108 (90 Base) MCG/ACT Ventolin HFA 108 (90 Base) MCG/ACT 03/08/2020 12:00:00 AM EST 1.0 {puff_as_needed} active Rasta tolin HFA 108 (90 Base) MCG/ACT eCW1 ([facility]) 24 HR Oxybutynin chloride 15 MG Extended Release Oral Tablet Oxybutynin Chloride ER 15 MG Oxybutynin Chloride ER 15 MG 03/08/2020 12:00:00 AM EST 1.0 {tablet} active Oxybutynin Chloride ER 1 5 MG eCW1 ([facility]) 200 ACTUAT Albuterol 0.09 MG/ACTUAT Mete red Dose Inhaler [Ventolin] Ventolin HFA 108 (90 Base) MCG/ACT Ventolin HFA 108 (90 Base) MCG/ACT 03/08/2020 12:00:00 AM EST 1.0 {puff_as_needed} active Rasta tolin HFA 108 (90 Base) MCG/ACT eCW1 ([facility]) 24 HR Oxybutynin chloride 15 MG Extended Release Oral Tablet Oxybutynin Chloride ER 15 MG Oxybutynin Chloride ER 15 MG 03/08/2020 12:00:00 AM EST 1.0 {tablet} active Oxybutynin Chloride ER 1 5 MG eCW1 ([facility]) 200 ACTUAT Albuterol 0.09 MG/ACTUAT Mete red Dose Inhaler [Ventolin] Ventolin HFA 108 (90 Base) MCG/ACT Ventolin HFA 108 (90 Base) MCG/ACT 03/08/2020 12:00:00 AM EST 1.0 {puff_as_needed} active Rasta tolin HFA 108 (90 Base) MCG/ACT eCW1 ([facility]) 200 ACTUAT Albuterol 0.09 MG/ACTUAT Mete red Dose Inhaler [Ventolin] Ventolin HFA 108 (90 Base) MCG/ACT Ventolin HFA 108 (90 Base) MCG/ACT 03/08/2020 12:00:00 AM EST 1.0 {puff_as_needed} active Rasta tolin HFA 108 (90 Base) MCG/ACT eCW1 ([facility]) 24 HR Oxybutynin chloride 15 MG Extended Release Oral Tablet Oxybutynin Chloride ER 15 MG Oxybutynin Chloride ER 15 MG 03/08/2020 12:00:00 AM EST 1.0 {tablet} active Oxybutynin Chloride ER 1 5 MG eCW1 ([facility]) Aspirin 81 MG Delayed Release Oral Tablet Aspirin Adul t Low Strength 81 MG Aspirin Adult Low Strength 81 MG 03/08/2020 12:00:00 AM EST 1.0 {tabl et} active Aspirin Adult Low Strength 8 1 MG eCW1 ([facility]) 200 ACTUAT Albuterol 0.09 MG/ACTUAT Mete red Dose Inhaler [Ventolin] Ventolin HFA 108 (90 Base) MCG/ACT Ventolin HFA 108 (90 Base) MCG/ACT 03/08/2020 12:00:00 AM EST 1.0 {puff_as_needed} active Rasta tolin HFA 108 (90 Base) MCG/ACT eCW1 ([facility]) Aspirin 81 MG Delayed Release Oral Tablet Aspirin Adul t Low Strength 81 MG Aspirin Adult Low Strength 81 MG 03/08/2020 12:00:00 AM EST 1.0 {tabl et} active Aspirin Adult Low Strength 8 1 MG eCW1 ([facility]) Aspirin 81 MG Delayed Release Oral Tablet Aspirin Adul t Low Strength 81 MG Aspirin Adult Low Strength 81 MG 03/08/2020 12:00:00 AM EST 1.0 {tabl et} active Aspirin Adult Low Strength 8 1 MG eCW1 ([facility]) 200 ACTUAT Albuterol 0.09 MG/ACTUAT Mete red Dose Inhaler [Ventolin] Ventolin HFA 108 (90 Base) MCG/ACT Ventolin HFA 108 (90 Base) MCG/ACT 03/08/2020 12:00:00 AM EST 1.0 {puff_as_needed} active Rasta tolin HFA 108 (90 Base) MCG/ACT eCW1 ([facility]) 90 mcg/actuation 03/08/2020 12:00:00 AM EST HFA [...] 2.0 {tablets_as_needed} active Tylenol 325 MG eCW1 ([facility]) Acetaminophen 325 MG Oral Tablet [Tylenol] Tylenol 325 MG Ty lenol 325 MG 02/20/2020 12:00:00 AM EST 2.0 {tablets_as_needed} active Tylenol 325 MG eCW1 ([facility]) Acetaminophen 325 MG Oral Tablet [Tylenol] Tylenol 325 MG Ty lenol 325 MG 02/20/2020 12:00:00 AM EST 2.0 {tablets_as_needed} active Tylenol 325 MG eCW1 ([facility]) Acetaminophen 325 MG Oral Tablet [Tylenol] Tylenol 325 MG Ty lenol 325 MG 02/20/2020 12:00:00 AM EST 2.0 {tablets_as_needed} active Tylenol 325 MG eCW1 ([facility]) Acetaminophen 325 MG Oral Tablet [Tylenol] Tylenol 325 MG Ty lenol 325 MG 02/20/2020 12:00:00 AM EST 2.0 {tablets_as_needed} active Tylenol 325 MG eCW1 ([facility]) Acetaminophen 325 MG Oral Tablet [Tylenol] Tylenol 325 MG Ty lenol 325 MG 02/20/2020 12:00:00 AM EST 2.0 {tablets_as_needed} active Tylenol 325 MG eCW1 ([facility]) Acetaminophen 325 MG Oral Tablet [Tylenol] Tylenol 325 MG Ty lenol 325 MG 02/20/2020 12:00:00 AM EST 2.0 {tablets_as_needed} active Tylenol 325 MG eCW1 ([facility]) Acetaminophen 325 MG Oral Tablet [Tylenol] Tylenol 325 MG Ty lenol 325 MG 02/20/2020 12:00:00 AM EST 2.0 {tablets_as_needed} active Tylenol 325 MG eCW1 ([facility]) Acetaminophen 325 MG Oral Tablet [Tylenol] Tylenol 325 MG Ty lenol 325 MG 02/20/2020 12:00:00 AM EST 2.0 {tablets_as_needed} active Tylenol 325 MG eCW1 ([facility]) POLYETHYLENE GLYCOL 3350 142 MG/ML Oral Solution Polye thylene Glycol 3350 17 GM Polyethylene Glycol 3350 17 GM 02/20/2020 12:00:00 AM EST 1. 0 {packet_mixed_with_8_ounces_of_fluid} active Polyethylene Glycol 3350 17 GM eCW1 ([facility]) Ciprofloxacin 500 MG Oral Tablet Ciprofloxacin HCl 500 MG Ciprofloxacin HCl 500 MG 02/20/2020 12:00:00 AM EST 1.0 {tablet} activ e Ciprofloxacin HCl 500 MG eCW1 ([facility]) POLYETHYLENE GLYCOL 3350 142 MG/ML Oral Solution Polye thylene Glycol 3350 17 GM Polyethylene Glycol 3350 17 GM 02/20/2020 12:00:00 AM EST 1. 0 {packet_mixed_with_8_ounces_of_fluid} active Polyethylene Glycol 3350 17 GM eCW1 ([facility]) 325 mg 02/18/2020 12:00:00 AM EST tablet [...] SOLD: 02/06/2020 [facility] Inject Dexamthosone Phosphate 86189-409-20 01/31/2020 12:00:00 A M EST completed MEDENT ([facility] Medication administered onsite Inject Triamcinolone Acetonide 10 ML, [facility] 7575-[address]334-47 01/31/2020 12:00:00 AM EST completed MEDENT (Aristeo [...] active Paroxeti ne HCl 10 MG eCW1 ([facility]) Paroxetine HCl 10 MG Paroxetine HCl 10 MG 10/12/2019 12:00:00 AM ED T 1.0 {tablet_in_the_morning} active Paroxeti ne HCl 10 MG eCW1 ([facility]) Paroxetine HCl 10 MG Paroxetine HCl 10 MG 10/12/2019 12:00:00 AM ED T 1.0 {tablet_in_the_morning} active Paroxeti ne HCl 10 MG eCW1 ([facility]) Paroxetine HCl 10 MG Paroxetine HCl 10 MG 10/12/2019 12:00:00 AM ED T 1.0 {tablet_in_the_morning} active Paroxeti ne HCl 10 MG eCW1 ([facility]) Paroxetine HCl 10 MG Paroxetine HCl 10 MG 10/12/2019 12:00:00 AM ED T 1.0 {tablet_in_the_morning} active Paroxeti ne HCl 10 MG eCW1 ([facility]) Paroxetine HCl 10 MG Paroxetine HCl 10 MG 10/12/2019 12:00:00 AM ED T 1.0 {tablet_in_the_morning} active Paroxeti ne HCl 10 MG eCW1 ([facility]) Paroxetine HCl 10 MG Paroxetine HCl 10 MG 10/12/2019 12:00:00 AM ED T 1.0 {tablet_in_the_morning} active Paroxeti ne HCl 10 MG eCW1 ([facility]) Finasteride 5 MG Oral Tablet FINASTERIDE 09/26/2019 [...] TABLET BY MOUTH EVERY DAY SOLD: 03/03/2019 Spoke[employer] Insurance Providers Payer name Policy type / Coverage type Policy ID Covered alliance party ID Covered alliance party's relationship to vasquez Policy Vasquez Plan Information EMEDNY [id number] SP [id number] MEDICARE [id number] SP [id number] U27 AARP HEALTH CARE OPTIONS [id number] SP [id number] MEDICARE C [id number] S [id number] U27 MEDICAID S [id number] S [id number] AARP HEALTH CARE OPTIONS [id number] SP [id number] MEDICARE [id number] SP [id number] U27 AARP HEALTH CARE OPTIONS [id number] SP [id number] AARP HEALTH CARE OPTIONS [id number] SP [id number] AARP HEALTH CARE OPTIONS [id number] SP [id number] MEDICARE [id number] SP [id number] U27 Medicare Dme Medigap Part B [id number] Self 0 [id number] Aarp Insurance Medigap Part B [id number] Self [id number] Medicare Medicare Primary [id number] Self 06 [id number] Medicare Dme Medigap Part B [id number] Self 0 [id number] Aar Insurance [facility] Part B [id number] 11 Self [id number] Medicare Medicare Primary [id number] Self 06 [id number] ANSI-Commercial [id number] ANSI-Medicare Part B [id number] ANSI-Medicare Part B [id number] ANSI-Medicare Part B [id number] ANSI-Commercial [id number] ANSI-Medicare Part B [id number] ANSI-Medicare Part B [id number] ANSI-Commercial [id number] ANSI-Medicare Part B [id number] ANSI-Commercial [id number] ANSI-Medicare Part B [id number] ANSI-Medicare Part B [id number] ANSI-Medicare Part B [id number] ANSI-Commercial [id number] ANSI-Medicare Part B [id number] ANSI-Commercial [id number] ANSI-Medicare Part B [id number] ANSI-Medicare Part B [id number] ANSI-Medicare Part B [id number] ANSI-Medicare Part B [id number] ANSI-Commercial [id number] Medicare Dme Medigap Part B [id number] Self 0 [id number] Aarp Insurance Medigap Part B [id number] 11 Self [id number] 11 Medicare Medicare Primary [id number] Self 06 [id number] Medicare Dme Medigap Part B [id number] Self 0 [id number] Aarp Insurance Medigap Part B [id number] 11 Self [id number] 11 Medicare Medicare Primary [id number] Self 06 [id number] ANSI-Commercial [id number] ANSI-Medicare Part B [id number] ANSI-Medicare Part B [id number] AAR HE[employer] CARE OPTIONS [id number] SP [id number] [employer] OPTIONS [id number] SP [id number] ANSI-Medicare Part B [id number] ANSI-Medicare Part B [id number] ANSI-Commercial [id number] ANSI-Commercial [id number] ANSI-Medicare Part B [id number] ANSI-Medicare Part B [id number] ANSI-Commercial [id number] ANSI-Medicare Part B [id number] ANSI-Medicare Part B [id number] ANSI-Medicare Part B [id number] ANSI-Medicare Part B [id number] ANSI-Commercial [id number] AARP HEALTH CARE OPTIONS [id number] SP [id number] AARP HEALTH CARE OPTIONS [id number] SP [id number] AARP O [id number] S [id number] AARP HEALTH CARE OPTIONS [id number] SP [id number] ANSI-Medicare Part B [id number] ANSI-Medicare Part B [id number] ANSI-Commercial [id number] AARP HEALTH CARE OPTIONS [id number] SP [id number] AARP HEALTH CARE OPTIONS [id number] SP [id number] MEDICARE [id number] SP [id number] A Medicare Dme Medigap Part B [id number] Self 0 [id number] Aarp Insurance Medigap Part B [id number] 11 Self [id number] 11 Medicare Medicare Primary [id number] Self 06 [id number] MEDICARE [id number] SP [id number] A Aarp Health Care Options Medigap Part B [id number] Self [id number] Medicare [place] Gov[place] Serv[place] Medicare Primary [id number] Self [id number] AARP HEALTH CARE OPTIONS [id number] SP [id number] MEDICARE [id number] S [id number] A Medicare Dme Medigap Part B [id number] Self 0 [id number] Aarp Insurance Medigap Part B [id number] 11 Self [id number] 11 Medicare Medicare Primary [id number] Self 06 [id number] MEDICARE [id number] SP [id number] A Aarp Insurance Medigap Part B Self Medicare Medicare Primary Self Aarp [facility] Options Medigap Part B Self [place] Primary Self Aarp Health Care Options Medigap Part B Self [place] Gov[place] Primary Self MEDICARE [id number] SP [id number] [place] Medig[place] Part B Self Todays Options Commercial Self MEDICAID [id number] SP [id number] MEDICARE [id number] SP [id number] A TODAYS OPTIONS [id number] SP [id number] TODAYS OPTIONS/PERUVIAN P [id number] S [id number] Problems, Conditions, and Diagnoses Code Display Name Description Problem Type Effective Dates Data Source(s) M10.9 944430700267096 Gouty arthritis of right ankle Problem 03/27/2020 12:00:00 AM EST eCW1 ([facility]) 12198628 Pain in limb Pain in limb Problem 02/17/2020 12:0 0:00 AM EST - 03/16/2020 12:00:00 AM EST [facility] ([facility] Idiopathic gout, right ankle and foot Idiopathic gout, right ankle and foot Problem 02/17/2020 12:00:00 AM EST - 03/16/2020 12:00:00 AM ES T [facility] ([facility] [id number] Onychomycosis Onychomycosis Problem 11/20/2019 12:00:00 AM EDT [facility] ([facility] N40.1 Lower urinary tract symptoms due to ramos gn prostatic hypertrophy Lower urinary tract symptoms due to benign prostatic hyperplasia Problem 08/26/2019 12:00:00 AM EDT eCW1 (Formerly [facility], [facility]) R35.1 Nocturia Nocturia Problem 08/26/2019 12:00:00 AM ED T eCW1 (Formerly [facility], [facility]) Surgeries/Procedures Procedure Description Date Indications Data Source(s) ARTHROCENTESIS ASPIR&/INJECTION INTERM JT/BURSA 2019 12:00:00 AM EST [facility] Office Visit, Est Pt., Level 3 PC 04/12/2019 12:00:00 AM EST eCW1 (Formerly [facility], [facility]) Results ID Date Data Source [id number] 03/07/2020 04:59:00 AM EST [facility] Name Value Range Interpretation Code Description Data Chasity rce(s) Supporting Document(s) Respiratory pathogens identified [Type] in Nasopharynx by Probe and target amplification method [facility] This lab was ordered by [facility] a nd reported by [facility]. ID Date Data Source [id number] 01/25/2020 08:15:00 AM EST [facility] ([facility] Name Value Range Interpretation Code Description Data Chasity rce(s) Supporting Document(s) Urate [Mass/volume] in Serum or Plasma 7.7 [facility] ([facility] ID Date Data Source [id number] 01/24/2020 01:18:00 PM EST [facility] ([facility] [...] blood pressure 52 mm[Hg] 52 mm[Hg] eCW1 (Formerly [facility], [facility]) Systolic blood pressure 104 mm[Hg] 104 mm[Hg] e CW1 (Formerly [facility], [facility]) Body temperature 97.1 [degF] 97.1 [degF] eCW1 ( Formerly [facility], [facility]) Respiratory rate 18 /min 18 /min eCW1 ([facility]) Heart rate 85 /min 85 /min eCW1 ([facility]) Body mass index (BMI) [Ratio] 21.79 kg/m2 21.79 kg/m2 W1 (Formerly [facility], [facility]) Body height 66 [in_i] 66 [in_i] eCW1 ([facility]) Body weight 135 [lb_av] 135 [lb_av] eCW1 (Formerly [facility]) Body mass index (BMI) [Ratio] 23.3 kg/m2 [...] blood pressure 72 mm[Hg] 72 mm[Hg] eCW1 (Formerly [facility], [facility]) Systolic blood pressure 138 mm[Hg] 138 mm[Hg] e CW1 (Formerly [facility], [facility]) Body temperature 98.1 [degF] 98.1 [degF] eCW1 ( Formerly [facility], [facility]) Respiratory rate 18 /min 18 /min eCW1 ([facility]) Heart rate 89 /min 89 /min eCW1 ([facility]) Body mass index (BMI) [Ratio] 21.98 kg/m2 21.98 kg/m2 eCW1 (Formerly [facility], [facility]) Body height 66 [in_i] 66 [in_i] eCW1 ([facility]) Body weight 136.2 [lb_av] 136.2 [lb_av] eCW1 ([facility]) Diastolic blood pressure mm[Hg] eCW1 (Formerly [facility], [facility]) Systolic blood pressure 120 mm[Hg] 120 mm[Hg] e CW1 (Formerly [facility], [facility]) Body temperature 97.3 [degF] 97.3 [degF] eCW1 ( Formerly [facility], [facility]) Respiratory rate 17 /min 17 /min eCW1 ([facility]) Heart rate 61 /min 61 /min eCW1 ([facility]) Body mass index (BMI) [Ratio] 23.72 kg/m2 23.72 kg/m2 eCW1 (Formerly [facility], [facility]) Body height 66 [in_i] 66 [in_i] eCW1 ([facility]) Body weight 147 [lb_av] 147 [lb_av] eCW1 (Formerly [facility]) Diastolic blood pressure 70 mm[Hg] 70 mm[Hg] eCW1 (Formerly [facility], [facility]) Systolic blood pressure 146 mm[Hg] 146 mm[Hg] e CW1 (Formerly [facility], [facility]) Body temperature 97.4 [degF] 97.4 [degF] eCW1 ( Formerly [facility], [facility]) Respiratory rate 18 /min 18 /min eCW1 ([facility]) Heart rate 92 /min 92 /min eCW1 ([facility]) Body mass index (BMI) [Ratio] 23.21 kg/m2 23.21 kg/m2 eCW1 (Formerly [facility], [facility]) Body height 66 [in_us] 66 [in_us] eCW1 ([facility]) Body weight Measured 143.8 [lb_av] 143.8 [lb_av ] eCW1 (Formerly [facility], [facility]) Patient Treatment Plan of Care Planned Activity Planned Date Details Description Data Source (s) Sebastian Mclain - 03/27/2020 12:00:00 AM EST eCW1 (Formerly [facility], [facility]) Sebastian Mclain - 03/27/2020 12:00:00 AM EST eCW1 (Formerly [facility], [facility]) Sebastian Mclain - 03/27/2020 12:00:00 AM EST eCW1 (Formerly [facility], [facility]) Paroxetine HCl 10 MG 10/12/2019 12:00:00 AM EDT eCW1 (Formerly [facility], [facility]) Paroxetine HCl 10 MG 10/12/2019 12:00:00 AM EDT eCW1 (Formerly [facility], [facility]) Paroxetine HCl 10 MG 10/12/2019 12:00:00 AM EDT eCW1 (Formerly [facility], [facility]) Paroxetine HCl 10 MG 10/12/2019 12:00:00 AM EDT eCW1 (Formerly [facility], [facility]) Paroxetine HCl 10 MG 10/12/2019 12:00:00 AM EDT eCW1 (Formerly [facility], [facility]) Paroxetine HCl 10 MG 10/12/2019 12:00:00 AM EDT eCW1 (Formerly [facility], [facility])
--- NOTE | 2020-04-08 16:41 | REP ---
INDICATION: DYSPNEA/COUGH. COMPARISON: 03/26/2020. TECHNIQUE: SINGLE PORTABLE AP VIEW OF THE CHEST WAS PERFORMED. FINDINGS: Right lung is clear. In the left lung base there is vague increased opacity laterally, appearing similar to the prior study. No new infiltrate is seen. Heart is normal in size. There is mild calcification of the thoracic aorta. The mediastinal silhouette is unchanged. IMPRESSION: No change since prior exam. <Electronically signed by Fredy Sapp > 04/08/20 [id number]
[2020-04-08 17:03] LABS: BASO % 0.1 % (0.0-1.0); HEMATOCRIT 42.7 % (42.0-52.0); HEMOGLOBIN 12.8 g/dl (13.5-17.5); LYMPH # 0.4 10^3/uL (1.5-5.0); LYMPH % 5.3 % (24.0-44.0); MEAN CORPUSCULAR HEMOGLOBIN 25.3 pg (27.0-33.0); MEAN CORPUSCULAR VOLUME 84.4 fl (80.0-96.0); MONO # 0.3 10^3/uL (0.0-0.8); MONO % 3.7 % (0.0-5.0); NEUTROPHILS # 6.7 10^3/uL (1.5-8.5); NEUTROPHILS % 90.5 % (36.0-66.0); PLATELET COUNT, AUTOMATED 177 10^3/uL (150-450); RED BLOOD COUNT 5.06 10^6/uL (4.30-6.10); WHITE BLOOD COUNT 7.4 10^3/uL (4.0-10.0)
[2020-04-08 17:05] LABS: VENOUS BASE EXCESS -7.9 (-2.0-2.0); VENOUS HCO3 17.7 MEQ/L (23.0-27.0); VENOUS O2 SATURATION 91.8 % (60.0-80.0); VENOUS PARTIAL PRESSURE CO2 36.7 mmHg (38.0-50.0); VENOUS PARTIAL PRESSURE O2 67.9 mmHg (30.0-50.0); VENOUS PH 7.301 UNITS (7.330-7.430); VENOUS TOTAL CO2 18.8 MEQ/L (24.0-28.0)
[2020-04-08 19:19] LABS: ALBUMIN 2.2 GM/DL (3.2-5.2); ALT/SGPT 20 U/L (12-78); BILIRUBIN,DIRECT 0.2 MG/DL (0.0-0.2); BILIRUBIN,TOTAL 0.5 MG/DL (0.2-1.0); BLOOD UREA NITROGEN 12 MG/DL (7-18); CALCIUM LEVEL 8.1 MG/DL (8.8-10.2); CARBON DIOXIDE LEVEL 20 MEQ/L (21-32); CHLORIDE LEVEL 103 MEQ/L (98-107); CK-MB VALUE MASS < 1.0 NG/ML (<3.6); CPK CREATINE PHOSPHOKINASE 27 U/L (39-308); CREATININE FOR GFR 0.96 MG/DL (0.70-1.30); GLOMERULAR FILTRATION RATE > 60.0 (>42); GLUCOSE, FASTING 176 MG/DL (70-100); NT-PRO BNP 242 PG/ML (<450); POTASSIUM SERUM 4.1 MEQ/L (3.5-5.1); SODIUM LEVEL 137 MEQ/L (136-145); TROPONIN I < 0.02 NG/ML (< 0.10)
[2020-04-08] MEDS ORDERED: PROAAER10 INH (19:49)
[2020-04-08 20:15] VITALS: BP 128/71
--- NOTE | 2020-04-09 08:53 | ECGEPIP ---
[facility] - ED Test Date: 2020-04-08 Pat Name: [place] BRENNAN Department: Room: - Gender: Male It Support Technician: TY : 1945 Requested By: NELLY MARTINEZ Order Number: [id number] Reading MD: Rhiannon Chavarria Measurements Intervals [place] Rate: 97 P: 68 [place]: 154 QRS: 6 QRSD: 97 T: 39 QT: 365 QTc: 464 Interpretive Statements SINUS RHYTHM MODERATE T-WAVE ABNORMALITY, CONSIDER ISCHEMIA, CLINICAL CORRELATION COMPARED 03/26/20 Electronically Signed on 04-09-2020 8:53:00 EST by Rhiannon Chavarria
== END 2020-04-08 20:22 | disposition home or self-care (01) ==
LOC: M ED 14:58
DX: B34.9 Viral infection, unspecified (principal); R05 Cough; R53.1 Weakness; E11.9 Type 2 diabetes mellitus without complications; J44.9 Chronic obstructive pulmonary disease, unspecified; Z79.51 Long term (current) use of inhaled steroids; Z79.899 Other long term (current) drug therapy

== ENCOUNTER → 2020-04-13 | Outpatient (CLI) | payer MEDICARE, MEDICAID ==
[~2020-04-13] MED LIST changes: +ALLO100T; +CEPH500T PO; +FEBU40TA2; +PROAAER10 INH
[2020-04-13 13:00] LABS: APPEARANCE, URINE CLOUDY (CLEAR); BACTERIA, URINE AUTO 1+ (NEGATIVE); BILIRUBIN, URINE AUTO NEGATIVE (NEGATIVE); BLOOD, URINE BLOOD 1+ (NEGATIVE); COLOR, URINE AMBER (YELLOW); GLUCOSE, URINE (UA) AUTO NEGATIVE (NEGATIVE); KETONE, URINE AUTO NEGATIVE (NEGATIVE); LEUKOCYTE ESTERASE, URINE AUTO 3+ (NEGATIVE); MUCUS, URINE SMALL (NEGATIVE); NITRITE, URINE AUTO NEGATIVE (NEGATIVE); PROTEIN, URINE AUTO 1+ mg/dL (NEGATIVE); RBC, URINE AUTO 22 /HPF (0-3); SPECIFIC GRAVITY URINE AUTO 1.014 (1.002-1.035); SQUAMOUS EPITHELIAL CELL UR AU 0 /HPF (0-6); UROBILINOGEN, URINE AUTO 0.2 mg/dL (0.0-2.0); WBC, URINE AUTO TNTC /HPF (0-3)
[2020-04-13 13:18] LABS: BASO % 0.2 % (0.0-1.0); EOS % 0.5 % (0.0-3.0); HEMATOCRIT 38.5 % (42.0-52.0); LYMPH # 0.6 10^3/uL (1.5-5.0); LYMPH % 13.3 % (24.0-44.0); MEAN CORPUSCULAR HEMOGLOBIN 25.5 pg (27.0-33.0); MEAN CORPUSCULAR HGB CONC 31.2 g/dl (32.0-36.5); MEAN CORPUSCULAR VOLUME 81.9 fl (80.0-96.0); MONO # 0.3 10^3/uL (0.0-0.8); MONO % 5.7 % (0.0-5.0); NEUTROPHILS # 3.5 10^3/uL (1.5-8.5); NEUTROPHILS % 80.1 % (36.0-66.0); PLATELET COUNT, AUTOMATED 159 10^3/uL (150-450); WHITE BLOOD COUNT 4.4 10^3/uL (4.0-10.0)
[2020-04-13 13:41] LABS: ALBUMIN 2.5 GM/DL (3.2-5.2); ALT/SGPT 22 U/L (12-78); BILIRUBIN,TOTAL 0.5 MG/DL (0.2-1.0); BLOOD UREA NITROGEN 13 MG/DL (7-18); CALCIUM LEVEL 9.2 MG/DL (8.8-10.2); CARBON DIOXIDE LEVEL 28 MEQ/L (21-32); CHLORIDE LEVEL 102 MEQ/L (98-107); CREATININE FOR GFR 0.94 MG/DL (0.70-1.30); GLOMERULAR FILTRATION RATE > 60.0 (>42); GLUCOSE, FASTING 181 MG/DL (70-100); POTASSIUM SERUM 4.4 MEQ/L (3.5-5.1); SODIUM LEVEL 138 MEQ/L (136-145); THYROID STIMULATING HORMONE 0.741 uIU/ML (0.358-3.740); TOTAL PROTEIN 6.2 GM/DL (6.4-8.2)
[2020-04-13 13:44] LABS: HEMOGLOBIN A1c 6.6 %
== END ==
LOC: M LAB 12:01
PROVIDERS: ATTEND Family Medicine
DX: R63.4 Abnormal weight loss (principal); Z79.899 Other long term (current) drug therapy

== ENCOUNTER 2020-05-01 13:55 | Emergency (ER) | payer MEDICARE, MEDICAID ==
[~2020-05-01] VITALS: Ht 167.6 cm; Wt 59.1 kg
[~2020-05-01 13:55] MED LIST changes: -ALLO100T; -CEPH500T PO; -FEBU40TA2
[2020-05-01] MEDS ORDERED: ALLO100T (14:06)
[2020-05-01] MEDS ORDERED: FEBU40TA2 (14:06)
[2020-05-01] MEDS ORDERED: ACETAMINOPHEN TAB 650MG DOSE (2X325MG) PO ONE (15:30)
[2020-05-01 15:43] LABS: ALT/SGPT 16 U/L (12-78); BILIRUBIN,DIRECT 0.2 MG/DL (0.0-0.2); BILIRUBIN,TOTAL 0.7 MG/DL (0.2-1.0); BLOOD UREA NITROGEN 11 MG/DL (7-18); C REACTIVE PROTEIN QUANTITATIV 4.13 MG/DL (0.00-0.30); CALCIUM LEVEL 9.2 MG/DL (8.8-10.2); CARBON DIOXIDE LEVEL 29 MEQ/L (21-32); CHLORIDE LEVEL 104 MEQ/L (98-107); CREATININE FOR GFR 0.82 MG/DL (0.70-1.30); GLOMERULAR FILTRATION RATE > 60.0 (>42); GLUCOSE, FASTING 94 MG/DL (70-100); POTASSIUM SERUM 4.7 MEQ/L (3.5-5.1); SODIUM LEVEL 141 MEQ/L (136-145); TOTAL PROTEIN 6.5 GM/DL (6.4-8.2); URIC ACID 2.4 MG/DL (3.5-7.2)
[2020-05-01 15:48] LABS: BASO % 0.3 % (0.0-1.0); EOS % 0.3 % (0.0-3.0); HEMATOCRIT 38.9 % (42.0-52.0); HEMOGLOBIN 11.7 g/dl (13.5-17.5); LYMPH # 0.9 10^3/uL (1.5-5.0); LYMPH % 12.7 % (24.0-44.0); MEAN CORPUSCULAR HEMOGLOBIN 25.1 pg (27.0-33.0); MEAN CORPUSCULAR HGB CONC 30.1 g/dl (32.0-36.5); MEAN CORPUSCULAR VOLUME 83.3 fl (80.0-96.0); MONO # 0.5 10^3/uL (0.0-0.8); MONO % 6.6 % (0.0-5.0); NEUTROPHILS # 5.5 10^3/uL (1.5-8.5); NEUTROPHILS % 79.7 % (36.0-66.0); PLATELET COUNT, AUTOMATED 252 10^3/uL (150-450); RED BLOOD COUNT 4.67 10^6/uL (4.30-6.10); WHITE BLOOD COUNT 6.9 10^3/uL (4.0-10.0)
[2020-05-01 16:23] LABS: ERYTHROCYTE SEDIMENTATION RATE 45 mm/hr (0-20)
[2020-05-01] MEDS ORDERED: CEPH500T PO (16:47)
[2020-05-01 16:53] VITALS: BP 131/55
== END 2020-05-01 16:55 | disposition home or self-care (01) ==
LOC: M ED 13:55
DX: L03.115 Cellulitis of right lower limb (principal); E11.9 Type 2 diabetes mellitus without complications; E03.9 Hypothyroidism, unspecified; Z80.0 Family history of malignant neoplasm of digestive organs; Z92.21 Personal history of antineoplastic chemotherapy; R51.9 Headache, unspecified; J44.9 Chronic obstructive pulmonary disease, unspecified; Z86.16 Personal history of COVID-19; Z79.82 Long term (current) use of aspirin; Z79.899 Other long term (current) drug therapy

== ENCOUNTER → 2020-05-15 | Outpatient (CLI) | payer MEDICARE, MEDICAID ==
[~2020-05-15] MED LIST changes: +ALLO100T; +CEPH500T PO; +FEBU40TA2
[2020-05-15 12:55] LABS: ALBUMIN 2.8 GM/DL (3.2-5.2); BILIRUBIN,DIRECT 0.2 MG/DL (0.0-0.2); BILIRUBIN,TOTAL 0.5 MG/DL (0.2-1.0); TOTAL PROTEIN 6.1 GM/DL (6.4-8.2); URIC ACID 3.5 MG/DL (3.5-7.2)
== END ==
LOC: M LAB 11:50
PROVIDERS: ATTEND Family Medicine
DX: M10.9 Gout, unspecified (principal)

== ENCOUNTER → 2020-08-31 | Outpatient (CLI) | payer MEDICARE, MEDICAID ==
[~2020-08-31] MED LIST changes: -PEG1POW PO; +POLY17PO18 PO; -SIME180C PO; +SIME180C25 PO
== END ==
LOC: M LAB 12:24
PROVIDERS: ATTEND Nurse Practitioner Women's Health
DX: R97.20 Elevated prostate specific antigen [PSA] (principal)

== ENCOUNTER → 2020-10-29 | Outpatient (CLI) | payer MEDICARE, MEDICAID ==
[~2020-10-29] MED LIST changes: +OMEP40CA4 PO; -OMEP40CA97 PO
--- NOTE | 2020-10-29 16:16 | REP ---
INDICATION: POPLITEAL PAIN, CRAMPS LLE. COMPARISON: None. TECHNIQUE: Multiple ultrasonographic images of the deep venous structures of the left lower extremity were obtained from the inguinal ligament to the ankle. Venous compression techniques, color doppler imaging, and augmentation techniques were also obtained where appropriate. As per the ACR guidelines the anterior tibial vein can not be effectively evaluated. Only compression techniques in the calf on the peroneal and posterior tibial veins was attempted/performed. FINDINGS: There is no abnormal echogenic material seen within any of the visualized deep venous structures that would suggest acute thrombosis. Coaptation is unremarkable throughout. Doppler interrogation shows an expected response to respiratory variability and augmentation in the thigh. Compression techniques in the calf showed no abnormality. The color flow images show what appears to be a normal vascular pattern throughout the thigh. IMPRESSION: There is no ultrasonographic evidence of deep venous thrombosis involving any of the visualized deep venous structures of the left lower extremity as described above. <Electronically signed by Chacho Nelson > 10/29/20 [id number]
== END ==
LOC: M RAD 15:21
PROVIDERS: ATTEND Physician Assistant
DX: M79.605 Pain in left leg (principal); R25.2 Cramp and spasm
CPT/HCPCS: 93971; G0463

== ENCOUNTER → 2020-11-09 | Outpatient (CLI) | payer MEDICARE, MEDICAID ==
[2020-11-09 14:40] LABS: BLOOD UREA NITROGEN 16 MG/DL (7-18); CALCIUM LEVEL 9.1 MG/DL (8.8-10.2); CARBON DIOXIDE LEVEL 33 MEQ/L (21-32); CHLORIDE LEVEL 106 MEQ/L (98-107); CREATININE FOR GFR 1.15 MG/DL (0.70-1.30); GLOMERULAR FILTRATION RATE > 60.0 (>42); GLUCOSE, FASTING 92 MG/DL (70-100); POTASSIUM SERUM 4.6 MEQ/L (3.5-5.1); SODIUM LEVEL 142 MEQ/L (136-145); THYROID STIMULATING HORMONE 0.936 uIU/ML (0.358-3.740)
[2020-11-09 14:49] LABS: HEMOGLOBIN A1c 5.7 %
== END ==
LOC: M LAB 12:38
PROVIDERS: ATTEND Physician Assistant
DX: E03.9 Hypothyroidism, unspecified (principal); E11.9 Type 2 diabetes mellitus without complications

== ENCOUNTER → 2021-06-03 | Outpatient (CLI) | payer MEDICARE, MEDICAID ==
[2021-06-03 15:30] LABS: BASO % 0.4 % (0.0-1.0); EOS # 0.1 10^3/uL (0.0-0.5); EOS % 1.6 % (0.0-3.0); HEMATOCRIT 39.1 % (42.0-52.0); HEMOGLOBIN 12.6 g/dl (13.5-17.5); LYMPH # 0.9 10^3/uL (1.5-5.0); LYMPH % 18.1 % (24.0-44.0); MEAN CORPUSCULAR HEMOGLOBIN 27.3 pg (27.0-33.0); MEAN CORPUSCULAR HGB CONC 32.2 g/dl (32.0-36.5); MEAN CORPUSCULAR VOLUME 84.8 fl (80.0-96.0); MONO # 0.4 10^3/uL (0.0-0.8); MONO % 9.1 % (2.0-8.0); NEUTROPHILS # 3.4 10^3/uL (1.5-8.5); NEUTROPHILS % 69.6 % (36.0-66.0); PLATELET COUNT, AUTOMATED 166 10^3/uL (150-450); RED BLOOD COUNT 4.61 10^6/uL (4.30-6.10); WHITE BLOOD COUNT 4.9 10^3/uL (4.0-10.0)
[2021-06-03 16:06] LABS: ALBUMIN 3.2 GM/DL (3.2-5.2); ALT/SGPT 25 U/L (12-78); BILIRUBIN,TOTAL 0.4 MG/DL (0.2-1.0); BLOOD UREA NITROGEN 11 MG/DL (7-18); CALCIUM LEVEL 9.1 MG/DL (8.8-10.2); CARBON DIOXIDE LEVEL 32 MEQ/L (21-32); CHLORIDE LEVEL 105 MEQ/L (98-107); CHOLESTEROL LEVEL 112 MG/DL (<200); CREATININE FOR GFR 1.13 MG/DL (0.70-1.30); GLOMERULAR FILTRATION RATE > 60.0 (>42); GLUCOSE, FASTING 106 MG/DL (70-100); HDL CHOLESTEROL 56 MG/DL (>40); LDL CHOLESTEROL 48 MG/DL (<100); NON-HDL-C 56 MG/DL; POTASSIUM SERUM 4.8 MEQ/L (3.5-5.1); SODIUM LEVEL 141 MEQ/L (136-145); TOTAL PROTEIN 6.2 GM/DL (6.4-8.2); TRIGLYCERIDES LEVEL 41 MG/DL (<150); URIC ACID 3.6 MG/DL (3.5-7.2)
[2021-06-03 16:07] LABS: TOTAL 25(OH) VITAMIN D 43.6 NG/ML (30.0-100.0)
[2021-06-03 17:58] LABS: FERRITIN 39 NG/ML (26-388); IRON (FE) 65 UG/DL (65-175)
[2021-06-03 18:04] LABS: VITAMIN B12 LEVEL 517 PG/ML (247-911)
== END ==
LOC: M PLALAB 12:00
PROVIDERS: ATTEND Physician Assistant Medical
DX: D64.9 Anemia, unspecified (principal); M10.9 Gout, unspecified; E11.9 Type 2 diabetes mellitus without complications; F41.8 Other specified anxiety disorders; E55.9 Vitamin D deficiency, unspecified; N41.1 Chronic prostatitis; E03.9 Hypothyroidism, unspecified; Z13.220 Encounter for screening for lipoid disorders; Z79.899 Other long term (current) drug therapy

== ENCOUNTER 2021-11-27 19:51 | Emergency (ER) | payer MEDICAID, MEDICARE ==
[~2021-11-27] VITALS: Ht 167.6 cm; Wt 65.9 kg
[2021-11-27 20:50] LABS: BASO % 0.2 % (0.0-1.0); EOS # 0.1 10^3/uL (0.0-0.5); EOS % 1.4 % (0.0-3.0); HEMOGLOBIN 12.4 g/dl (13.5-17.5); LYMPH # 0.6 10^3/uL (1.5-5.0); MEAN CORPUSCULAR HEMOGLOBIN 27.6 pg (27.0-33.0); MEAN CORPUSCULAR HGB CONC 31.8 g/dl (32.0-36.5); MEAN CORPUSCULAR VOLUME 86.9 fl (80.0-96.0); MONO # 0.3 10^3/uL (0.0-0.8); MONO % 5.5 % (2.0-8.0); NEUTROPHILS # 3.9 10^3/uL (1.5-8.5); NEUTROPHILS % 79.7 % (36.0-66.0); PLATELET COUNT, AUTOMATED 140 10^3/uL (150-450); RED BLOOD COUNT 4.49 10^6/uL (4.30-6.10); WHITE BLOOD COUNT 4.9 10^3/uL (4.0-10.0)
[2021-11-27 21:38] LABS: CK-MB VALUE MASS < 1.0 NG/ML (<3.6); CPK CREATINE PHOSPHOKINASE 51 U/L (39-308); MB/CK RELATIVE INDEX 1.96 (< OR =4)
[2021-11-27 21:42] LABS: ALBUMIN 3.3 GM/DL (3.2-5.2); ALT/SGPT 18 U/L (12-78); BILIRUBIN,TOTAL 0.6 MG/DL (0.2-1.0); BLOOD UREA NITROGEN 15 MG/DL (7-18); CALCIUM LEVEL 9.1 MG/DL (8.8-10.2); CARBON DIOXIDE LEVEL 29 MEQ/L (21-32); CHLORIDE LEVEL 104 MEQ/L (98-107); CREATININE FOR GFR 1.11 MG/DL (0.70-1.30); GLOMERULAR FILTRATION RATE > 60.0 (>42); GLUCOSE, FASTING 172 MG/DL (70-100); SODIUM LEVEL 138 MEQ/L (136-145); TOTAL PROTEIN 6.3 GM/DL (6.4-8.2)
[2021-11-27 23:15] VITALS: BP 158/72
[2021-11-27] MEDS ORDERED: AMLO25TA PO (23:29)
[2021-11-27] MEDS ORDERED: amLODIPine 5 MG TAB PO ONE (23:30)
[2021-11-27] MEDS ORDERED: MECLIZINE 12.5 MG TAB PO ONE (23:35)
== END 2021-11-28 00:13 | disposition home or self-care (01) ==
LOC: M ED 19:51
DX: I10 Essential (primary) hypertension (principal); H54.7 Unspecified visual loss; E11.9 Type 2 diabetes mellitus without complications; E07.9 Disorder of thyroid, unspecified; N40.0 Benign prostatic hyperplasia without lower urinary tract symptoms; Z79.899 Other long term (current) drug therapy; Z79.890 Hormone replacement therapy; Z79.82 Long term (current) use of aspirin

== ENCOUNTER → 2021-12-25 | Outpatient (CLI) | payer MEDICARE, MEDICAID ==
[~2021-12-25] MED LIST changes: +AMLO25TA PO
== END ==
LOC: M PLAIMG 14:07
PROVIDERS: ATTEND Physician Assistant Medical
DX: R42 Dizziness and giddiness (principal)

== ENCOUNTER → 2022-05-13 | Outpatient (CLI) | payer MEDICARE, MEDICAID ==
[~2022-05-13] MED LIST changes: +ALBU8.5H INH
[2022-05-13 16:31] LABS: BASO % 0.5 % (0.0-1.0); EOS # 0.1 10^3/uL (0.0-0.5); EOS % 1.1 % (0.0-3.0); HEMATOCRIT 43.4 % (42.0-52.0); HEMOGLOBIN 13.6 g/dl (13.5-17.5); LYMPH # 0.9 10^3/uL (1.5-5.0); LYMPH % 13.6 % (24.0-44.0); MEAN CORPUSCULAR HEMOGLOBIN 26.2 pg (27.0-33.0); MEAN CORPUSCULAR HGB CONC 31.3 g/dl (32.0-36.5); MEAN CORPUSCULAR VOLUME 83.6 fl (80.0-96.0); MONO # 0.4 10^3/uL (0.0-0.8); NEUTROPHILS # 4.9 10^3/uL (1.5-8.5); PLATELET COUNT, AUTOMATED 212 10^3/uL (150-450); RED BLOOD COUNT 5.19 10^6/uL (4.30-6.10); WHITE BLOOD COUNT 6.3 10^3/uL (4.0-10.0)
[2022-05-13 16:54] LABS: PROSTATIC SPECIFIC AG MONITOR 6.54 NG/ML (< 4.00)
[2022-05-13 16:57] LABS: URIC ACID 3.3 MG/DL (3.7-9.2)
[2022-05-13 16:58] LABS: FREE T4 1.93 NG/DL (0.89-1.76); THYROID STIMULATING HORMONE 1.926 uIU/ML (0.55-4.78)
[2022-05-13 17:00] LABS: TOTAL 25(OH) VITAMIN D 47.4 NG/ML (20.0-100.0)
[2022-05-13 17:31] LABS: ALBUMIN 3.5 G/DL (3.2-5.2); ALKALINE PHOSPHATASE 136 U/L (46-116); ALT/SGPT 19 U/L (7.0-40); AST/SGOT 26 U/L (<34); BILIRUBIN,TOTAL 0.8 MG/DL (0.3-1.2); BLOOD UREA NITROGEN 17 MG/DL (9-23); CALCIUM LEVEL 9.3 MG/DL (8.3-10.6); CARBON DIOXIDE LEVEL 27 MMOL/L (20-31); CHLORIDE LEVEL 104 MMOL/L (98-107); GLUCOSE, FASTING 108 MG/DL (74-106); POTASSIUM SERUM 4.4 MMOL/L (3.5-5.1); SODIUM LEVEL 141 MMOL/L (136-145); TOTAL PROTEIN 6.9 G/DL (5.7-8.2)
[2022-05-13 20:16] LABS: GLOMERULAR FILTRATION RATE > 60.0 (>42)
[2022-05-13 22:23] LABS: HEMOGLOBIN A1c 6.3 % (4.0-6.0)
== END ==
LOC: M PLALAB 14:00
PROVIDERS: ATTEND Physician Assistant Medical
DX: M10.9 Gout, unspecified (principal); E11.9 Type 2 diabetes mellitus without complications; R97.20 Elevated prostate specific antigen [PSA]; E55.9 Vitamin D deficiency, unspecified; E03.9 Hypothyroidism, unspecified; D64.9 Anemia, unspecified; Z79.899 Other long term (current) drug therapy

== ENCOUNTER → 2023-03-06 | Outpatient (REF) | payer MEDICARE, MEDICAID ==
[~2023-03-06] MED LIST changes: -FEBU40TA2; +FEBU40TA6
== END ==
LOC: M LAB REF 16:25
PROVIDERS: ATTEND Physician Assistant Medical
DX: R05.9 Cough, unspecified (principal)